=== PATIENT | male | born 1960 | race Caucasian/White ===

== ENCOUNTER 2018-07-09 11:17 | Inpatient (IN) | payer OTHER ==
--- OUTSIDE RECORDS SUMMARY | 2018-07-09 11:19 | XMS REPORT | Clinical Summary ---
:1960 Author Organization [facility] Address [address] [address] Care Team Providers Name Role Phone Huey Kendall Katia Primary Care Provider Allergies Active Allergy Reactions Severity Noted Date Comments Codeine Nausea And Vomiting High 06/13/2016 Medications Medication Sig Dispensed Refills Start Date End Date Status LIPASE/PROTEASE/AMYLA Take by mouth 4 0 Active SE (CREON ORAL) (four) times daily after meals and nightly. [id number] Take 2 capsules 30 capsule 1 06/20/2016 Active se 5,000-17,000 (10,000 units of -27,000 unit E.C. cap lipase total) by mouth 3 (three) times daily with meals. fluticasone-salmetero Inhale 1 puff by 1 Inhaler 0 06/20/2016 Active l (ADVAIR) 250-50 mouth via inhaler mcg/dose diskus every 12 (twelve) inhaler hours. Active Problems Problem Noted Date Chronic pancreatitis 06/18/2016 Alcoholism 06/18/2016 Anemia 06/18/2016 Hyponatremia 06/18/2016 Cervical stenosis of spinal canal 06/13/2016 Social History Tobacco Use Types Packs/Day Years Used Date Current Every Day Smoker 1 30 Tobacco Cessation: Ready to Quit: No Alcohol Use Drinks/Week oz/Week Comments Yes Sex Assigned at Date Recorded Not on file Job Start Date Occupation Industry Not on file Not on file Not on file Travel History Travel Start Travel End No recent travel history available. Last Filed Vital Signs Not on file Plan of Treatment Not on file Implants Implanted Type Area Instant Printer Operator Device Shelf Model / Identifier Expiration Serial / Date Lot Tiss Live Kt Lyo Thrombin 8ml 2993 - [id number] Cement/Fi N/A: Spine J &J: ETHICON 11/06/2017 [id number] / Implanted: Qty: 2 on 06/14/2016 by Chilo Diaz MD ller/Adhe Cervical / sive [id number] Set Scr M6 [id number] - [id number] Spine N/A: Spine MEDTRONIC:SPINA [id number] / Implanted: Qty: 6 on 06/14/2016 by Chilo Diaz MD Cervical L BIOLOGICS / Scr Vertex 14mm [id number] - [id number] Spine N/A: Spine MEDTRONIC:SPINA [id number] / Implanted: Qty: 4 on 06/14/2016 by Chilo Diaz MD Cervical L BIOLOGICS / Scr Multiaxial 3.5x16mm [id number] - [id number] Spine N/A: Spine MEDTRONIC: SPINA [id number] / Implanted: Qty: 2 on 06/14/2016 by Chilo Diaz MD Cervical L BIOLOGICS / Alonzo Precut 3.5x40mm [id number] - [id number] Spine N/A: Spine MEDTRONIC:SPINA [id number] / Implanted: Qty: 2 on 06/14/2016 by Chilo Diaz MD Cervical L BIOLOGICS / Orthoblend Small N/A: Spine MEDTRONIC 02/21/2018 [id number] / Implanted: Qty: 1 on 06/14/2016 by Chilo Diaz MD Cervical [id number] / Results Not on fileafter 07/08/2017 Insurance Payer Benefit Plan / Group Subscriber ID Type Phone Address [place] xxxxxxxxxxx PPO ([place]) [place] [address] Advance Directives For more information, please contact:[address] [phone] Code Status Date Activated Date Inactivated Comments Full Code 06/13/2016 11:47 PM 06/20/2016 8:18 PM This code status was determined by: Patient
[2018-07-09] MEDS ORDERED: THIAMINE 200 MG/2 ML INJ ONE (12:16)
[2018-07-09] MEDS ORDERED: NA CHLORIDE 0.9% 1,000 ML ONE (12:16)
--- NOTE | 2018-07-09 12:30 | RAD REPORT ---
EXAM DESCRIPTION: CT - Head Brain Wo Cont - 07/09/2018 12:19 pm CLINICAL HISTORY: Acute onset bilateral leg weakness COMPARISON: June 2016 TECHNIQUE: Axial 5 mm thick images of the head were obtained without IV contrast. All CT scans are performed using dose optimization technique as appropriate and may include automated exposure control or mA/KV adjustment according to patient size. FINDINGS: No intracranial hemorrhage, mass, edema or shift of mid-line structures. No acute cortical based infarction. No cortical edema or sulcal effacement. Ventricles are prominent but similar to th e prior study. No abnormal extra-axial fluid collections. No transependymal migration of CSF. Mastoid air cells and visualized portions of the paranasal sinuses are clear. No acute bony findings. IMPRESSION: Negative non-contrast CT head examination for acute finding. No identifiable change from prior imaging.
--- NOTE | 2018-07-09 12:37 | RAD REPORT ---
EXAM DESCRIPTION: RAD - Chest Single View - 07/09/2018 12:06 pm CLINICAL HISTORY: Weakness, slurred speech, COPD COMPARISON: June 2016 TECHNIQUE: AP portable chest image was obtained 1158 hour . FINDINGS: Patient has baseline fibrotic an obstructive lung disease. Costophrenic angle blunting is present and stable. No peripheral infiltrates seen. There is masslike density superimposed on the rig ht hilum new from the prior examination. Finding is concerning for central lung mass or mediastinal m ass. Follow-up CT chest imaging with contrast is recommended. No failure or volume overload suspected. Heart and vasculature are normal. No measurable pleural effu mio and no pneumothorax. No acute bony abnormality seen. No acute aortic findings suspected. IMPRESSION: Suspected right hilar or central lung mass new from prior imaging. Follow-up CT chest im aging with contrast recommended. Baseline COPD pattern with no pulmonary edema or peripheral infiltrate.
[2018-07-09 13:05] LABS: Blood Gas Oxyhemoglobin 91.8 % (94-97); Blood O2 Saturation 95.5 % (92-98.5)
--- NOTE | 2018-07-09 13:13 | RAD REPORT ---
EXAM DESCRIPTION: MRI - Brain Wo Cont - 07/09/2018 12:33 pm CLINICAL HISTORY: Weakness, altered mental status, slurred speech COMPARISON: CT head same date TECHNIQUE: Sagittal T1-weighted images were obtained along with axial PD, heavily T2-weighted and T2 -FLAIR images. Axial DWI and ADC mapping sequences were also obtained along with coronal heavily T2-w eighted images. FINDINGS: No intracranial hemorrhage, mass or acute infarction. There is no edema or shift of midlin e structures. No extra-axial fluid collections. Kaufman-matter/white matter junction is preserved. Signa l voids are seen as a normal finding in the major intracranial vessels. No significant atrophy. The patient has a few scattered areas of T2/IR signal abnormality in the whit e matter of each cerebral hemisphere. This is most typically associated with chronic ischemic change. Minimal hypointense signal seen on diffusion-weighted imaging and heavily T2 weighted imaging may be from iron deposition or hemosiderin. No acute intracranial process seen. Mastoid air cells and paranasal sinuses are clear. IMPRESSION: No acute infarction. No hemorrhage, mass or other acute intracranial finding. A few scattered areas of abnormal T2 signal are present most commonly due to chronic ischemic change.
--- NOTE | 2018-07-09 13:18 | EDPHYS ---
Physician Documentation [facility] Name: Anuj Madrigal Jr Age: 58 yrs Sex: Male : 1960 Arrival Date: 07/09/2018 Time: 11:21 Bed 5 Private MD: Luda Kendall H ED Physician Tyree Kiran HPI: 07/09 11:49 This 58 yrs old Male presents to ER via Wheelchair with complaints of Trouble enrique Walking. 11:49 The patient presents to the emergency department with weakness of the entire body, enrique generalized weakness. Onset: The symptoms/episode began/occurred 2 day(s) ago. Context: occurred at home. Associated signs and symptoms: Pertinent positives: weakness. Severity of symptoms: At their worst the symptoms were mild moderate in the emergency department the symptoms are unchanged. Patient's baseline: Neuro: alert and fully oriented. The patient has not experienced similar symptoms in the past. Historical: - Allergies: 11:28 Codeine; sv - PMHx: 11:28 Back pain; COPD; Pancreatitis; sv - PSHx: 11:28 Bowel resection; neck; sv - Immunization history:: Flu vaccine is not up to date. - Social history:: Smoking status: Patient uses tobacco products, smokes 1.5 packs per day, Patient uses alcohol, on a daily basis. - Ebola Screening: : No symptoms or risks identified at this time. - Family history:: not pertinent. ROS: 11:49 Constitutional: Negative for fever, chills, and weight loss, Eyes: Negative for injury, enrique pain, redness, and discharge, ENT: Negative for injury, pain, and discharge, Neck: Negative for injury, pain, and swelling, Cardiovascular: Negative for chest pain, palpitations, and edema, Abdomen/GI: Negative for abdominal pain, nausea, vomiting, diarrhea, and constipation, Back: Negative for injury and pain, : Negative for injury, bleeding, discharge, and swelling, MS/Extremity: Negative for injury and deformity, Skin: Negative for injury, rash, and discoloration, Psych: Negative for depression, anxiety, suicide ideation, homicidal ideation, and hallucinations, Allergy/Immunology: Negative for hives, rash, and allergies, Endocrine: Negative for neck swelling, polydipsia, polyuria, polyphagia, and marked weight changes, Hematologic/Lymphatic: Negative for swollen nodes, abnormal bleeding, and unusual bruising. 11:49 Respiratory: Positive for cough. 11:49 Neuro: Positive for dizziness, syncope, weakness. Exam: 11:49 Constitutional: This is a well developed, well nourished patient who is awake, alert, enrique and in no acute distress. Head/Face: Normocephalic, atraumatic. Eyes: Pupils equal round and reactive to light, extra-ocular motions intact. Lids and lashes normal. Conjunctiva and sclera are non-icteric and not injected. Cornea within normal limits. Periorbital areas with no swelling, redness, or edema. ENT: Nares patent. No nasal discharge, no septal abnormalities noted. Tympanic membranes are normal and external auditory canals are clear. Oropharynx with no redness, swelling, or masses, exudates, or evidence of obstruction, uvula midline. Mucous membranes moist. Neck: Trachea midline, no thyromegaly or masses palpated, and no cervical lymphadenopathy. Supple, full range of motion without nuchal rigidity, or vertebral point tenderness. No Meningismus. Chest/axilla: Normal chest wall appearance and motion. Nontender with no deformity. No lesions are appreciated. Cardiovascular: Regular rate and rhythm with a normal S1 and S2. No gallops, murmurs, or rubs. Normal PMI, no JVD. No pulse deficits. Respiratory: Lungs have equal breath sounds bilaterally, clear to auscultation and percussion. No rales, rhonchi or wheezes noted. No increased work of breathing, no retractions or nasal flaring. Abdomen/GI: Soft, non-tender, with normal bowel sounds. No distension or tympany. No guarding or rebound. No evidence of tenderness throughout. Back: No spinal tenderness. No costovertebral tenderness. Full range of motion. Male : Normal genitalia with no discharge or lesions. Skin: Warm, dry with normal turgor. Normal color with no rashes, no lesions, and no evidence of cellulitis. MS/ Extremity: Pulses equal, no cyanosis. Neurovascular intact. Full, normal range of motion. Neuro: Awake and alert, GCS 15, oriented to person, place, time, and situation. Cranial nerves II-XII grossly intact. Motor strength 5/5 in all extremities. Sensory grossly intact. Cerebellar exam normal. Normal gait. Psych: Awake, alert, with orientation to person, place and time. Behavior, mood, and affect are within normal limits. Vital Signs: 11:28 BP 151 / 86; Pulse 56; Resp 16; Temp 97; Pulse Ox 99% ; Weight 58.97 kg; Height 5 ft. 9 sv in. (175.26 cm); Pain 0/10; 13:56 BP 156 / 84; Pulse 53; Resp 18; Pulse Ox 100% ; tl3 16:08 BP 175 / 87; Pulse 46; Resp 15; Temp 98.0(TE); Pulse Ox 100% on R/A; Pain 0/10; ss 11:28 Body Mass Index 19.20 (58.97 kg, 175.26 cm) sv NIH Stroke Scale Scores: 13:57 NIHSS Score: 0 tl3 MDM: 11:52 Data reviewed: vital signs, nurses notes, lab test result(s), EKG, radiologic studies, [facility] CT scan, plain films. 11:53 Patient medically screened. [facility] 07/09 11:49 Order name: Basic Metabolic Panel; Complete Time: 14:27 [facility] 07/09 11:49 Order name: CBC with Diff 07/09 11:49 Order name: LFT's; Complete Time: 14:27 [facility] 07/09 11:49 Order name: Magnesium; Complete Time: 14:27 [facility] 07/09 11:49 Order name: NT PRO-BNP; Complete Time: 14:27 [facility] 07/09 11:49 Order name: PT-INR; Complete Time: 14:01 [facility] 07/09 11:49 Order name: Troponin (emerg Dept Use Only); Complete Time: 14:27 [facility] 07/09 11:49 Order name: Blood Culture Adult (2) [facility] 07/09 11:49 Order name: Procalcitonin; Complete Time: 14:27 [facility] 07/09 11:49 Order name: Lipase; Complete Time: 14:27 [facility] 07/09 11:49 Order name: Urine Culture [facility] 07/09 11:49 Order name: Lactate; Complete Time: 13:13 [facility] 07/09 11:52 Order name: Glucose, Ancillary Testing; Complete Time: 12:29 [facility] 07/09 11:52 Order name: ETOH Level; Complete Time: 14:21 [facility] 07/09 11:52 Order name: UDS [facility] 07/09 11:53 Order name: ABG [facility] 07/09 14:22 Order name: Urine Osmolality [facility] 07/09 14:22 Order name: Urine Sodium Random [facility] 07/09 14:22 Order name: Osmolality, Serum [facility] 07/09 14:28 Order name: TSH [facility] 07/09 14:28 Order name: Uric Acid [facility] 07/09 14:35 Order name: Cortisol 07/09 14:35 Order name: Cortisol [facility] 07/09 14:35 Order name: Urine Potassium Random [facility] 07/09 14:44 Order name: Manual Differential [facility] 07/09 15:59 Order name: UR SODIUM [facility] 07/09 16:00 Order name: UR POTASSIUM [facility] 07/09 16:05 Order name: Osmolality, Urine [facility] 07/09 16:32 Order name: Uric Acid [facility] 07/09 16:33 Order name: Thyroid Stimulating Hormone [facility] 07/09 11:49 Order name: XRAY Chest (1 view); Complete Time: 13:13 [facility] 07/09 11:49 Order name: EKG; Complete Time: 11:49 [facility] 07/09 11:49 Order name: Cardiac monitoring; Complete Time: 14:15 [facility] 07/09 11:49 Order name: EKG - Nurse/Tech; Complete Time: 14:15 [facility] 07/09 11:49 Order name: IV Saline Lock; Complete Time: 12:03 [facility] 07/09 11:49 Order name: Labs collected and sent; Complete Time: 12:03 [facility] 07/09 11:49 Order name: O2 Per Protocol; Complete Time: 13:38 [facility] 07/09 11:49 Order name: O2 Sat Monitoring; Complete Time: 13:37 [facility] 07/09 11:49 Order name: Urine Dipstick-Ancillary (obtain specimen); Complete Time: 15:57 [facility] 07/09 11:49 Order name: CT Head Brain wo Cont; Complete Time: 13:13 [facility] 07/09 11:53 Order name: Brain Wo Cont; Complete Time: 13:15 [facility] 07/09 12:11 Order name: Labs - recollect needed; Complete Time: 13:34 07/09 12:29 Order name: CT Chest W/ Con [facility] 07/09 13:21 Order name: CONS Physician Consult [facility] 07/09 14:22 Order name: Seizure Precautions; Complete Time: 14:38 [facility] 07/09 14:46 Order name: CT EDMS Administered Medications: 13:35 Drug: NS 0.9% 500 ml Volume: 500 ml; Route: IV; Rate: 1 bolus; Site: right forearm; tl3 Delivery: Primary tubing; 14:15 Follow up: IV Status: Completed infusion; IV Intake: 500ml ss 13:46 Drug: Thiamine 100 mg Route: IV; Rate: bolus; Site: right forearm; Delivery: Primary tl3 tubing; 14:19 Follow up: IV Status: Completed infusion; IV Intake: 10ml tl3 13:50 Drug: Aspirin 162 mg Route: PO; tl3 14:19 Follow up: Response: No adverse reaction tl3 14:15 Drug: NS 0.9% 1000 ml Route: IV; Rate: 125 ml/hr; Site: right antecubital; ss 14:16 Follow up: IV Status: Infusion continued upon admission ss 15:32 Drug: Magnesium Sulfate 2 grams Route: IVPB; Infused Over: 2 hrs; Site: right forearm; ss 15:41 Follow up: IV Status: Infusion continued upon admission ss Point of Care Testing: Blood Glucose: 11:45 Blood Glucose: 79 mg/dL; sv Ranges: Critical Glucose Levels:Adult <50 mg/dl or >400 mg/dl <40 mg/dl or >180 mg/dl Disposition: 07/09/18 13:17 Hospitalization ordered by Miles Coreas for Inpatient Admission. Preliminary diagnosis are Weakness, Chronic obstructive pulmonary disease with (acute) exacerbation - lung mass, Hypo-osmolality and hyponatremia, Alcohol abuse, Hypomagnesemia. - Bed requested for Intensive Care Unit. - Status is Inpatient Admission. ss - Condition is Fair. - Problem is new. - Symptoms have improved. UTI on Admission? No NIH Stroke Scale - NIH Stroke Score Date: 07/09/2018 Time: 13:57 Total Score = 0 1a. Level of Consciousness (LOC) - 0(Alert) 1b. Level of Consciousness (LOC) (Year \T\ Age) - 0(Both) 1c. LOC Commands (Open \T\ Closes Eyes/Orthopedic Designer) - 0(Both) 2. Best Gaze (Lateral Gaze Paresis) - 0(Normal) 3. Visual Field Loss - 0(No visual loss) 4. Facial Palsy - 0(Normal) 5a. Left Arm: Motor (10-second hold) - 0(No drift) 5b. Right Arm: Motor (10-second hold) - 0(No drift) 6a. Left Leg: Motor (5-second hold - always test supine) - 0(No drift) 6b. Right Leg: Motor (5-second hold - always test supine) - 0(No drift) 7. Limb Ataxia (finger/nose \T\ heel/galicia - test with eyes open) - 0(Absent) 8. Sensory Loss (pinprick arms/legs/face) - 0(Normal) 9. Best Language: Aphasia (description/naming/reading) - 0(No aphasia) 10. Dysarthria (speech clarity - read or repeat words) - 0(Normal) 11. Extinction and Inattention (visual/tactile/auditory/spatial/personal) - 0(No abnormality) Initials: tl3 Signatures: Dispatcher [employer] EDTX Shira Freitas RN RN sv Anderson, Corey, MD MD cha Smirch, Shelby, RN RN ss Fitzgerald, Diane, RN RN df Lowrey, Tammy, RN RN tl3 Elinor Vu Corrections: (The following items were deleted from the chart) 11:53 11:50 MR STROKE PROTOCOL+MRI.RAD.BRZ ordered. [facility] EDTX 14:23 13:17 Hospitalization Ordered by Miles Coreas MD for Observation. Preliminary enrique diagnosis is Weakness; Chronic obstructive pulmonary disease with (acute) exacerbation - lung mass. Bed requested for Telemetry/MedSurg (observation). Status is Observation. Condition is Fair. Problem is new. Symptoms have improved. UTI on Admission? No. enrique 14:29 14:23 07/09/2018 13:17 Hospitalization Ordered by Miles Coreas MD for Inpatient enrique Admission. Preliminary diagnosis is Weakness; Chronic obstructive pulmonary disease with (acute) exacerbation - lung mass; Hypo-osmolality and hyponatremia; Alcohol abuse. Bed requested for Intensive Care Unit. Status is Inpatient Admission. Condition is Fair. Problem is new. Symptoms have improved. UTI on Admission? No. enrique 15:01 14:29 07/09/2018 13:17 Hospitalization Ordered by Miles Coreas MD for Inpatient df Admission. Preliminary diagnosis is Weakness; Chronic obstructive pulmonary disease with (acute) exacerbation - lung mass; Hypo-osmolality and hyponatremia; Alcohol abuse; Hypomagnesemia. Bed requested for Intensive Care Unit. Status is Inpatient Admission. Condition is Fair. Problem is new. Symptoms have improved. UTI on Admission? No. enrique 16:35 15:01 07/09/2018 13:17 Hospitalization Ordered by Miles Coreas MD for Inpatient Admission. Preliminary diagnosis is Weakness; Chronic obstructive pulmonary disease with (acute) exacerbation - lung mass; Hypo-osmolality and hyponatremia; Alcohol abuse; Hypomagnesemia. Bed requested for Intensive Care Unit. Status is Inpatient Admission. Condition is Fair. Problem is new. Symptoms have improved. UTI on Admission? No. df
--- NOTE | 2018-07-09 13:18 | ER ---
Nurse's Notes [facility] Name: Anuj Madrigal Jr Age: 58 yrs Sex: Male : 1960 Arrival Date: 07/09/2018 Time: 11:21 Bed 5 Private MD: Luda Kendall H Diagnosis: Weakness;Chronic obstructive pulmonary disease with (acute) exacerbation-lung mass;Hypo-osmolality and hyponatremia;Alcohol abuse;Hypomagnesemia Presentation: 07/09 11:25 Presenting complaint: Patient states: generalized weakness, pt reports he has always sv had trouble with his right leg after having neck surgery 2 years ago but recently has been weak on both legs. c/o lethargy. Spouse states that he started having slurred speech 3 days ago. Pt reports drinking beer daily for years and had his last drink . Transition of care: patient was not received from another setting of care. No acute neurological deficit is noted. Onset of symptoms was July 06, 2018. Care prior to arrival: None. 11:25 Method Of Arrival: Wheelchair sv 11:25 Acuity: QUENTIN 3 sv 14:00 Pre-hospital glucose is not applicable to this patient. Risk Assessment: Do you want to ss hurt yourself or someone else? Patient reports no desire to harm self or others. Initial Sepsis Screen: Does the patient meet any 2 criteria? No. Patient's initial sepsis screen is negative. Does the patient have a suspected source of infection? No. Patient's initial sepsis screen is negative. Triage Assessment: 11:25 General: Appears in no apparent distress. uncomfortable, ill, unkempt, Behavior is sv calm, cooperative. Neuro: Level of Consciousness is awake, alert, obeys commands, Oriented to person, place, time, situation, Reports weakness. Respiratory: Respiratory effort is even, unlabored, Respiratory pattern is regular, symmetrical. 12:01 The onset of the patients symptoms was more than six hours ago. General: Appears ill, ls4 unkempt. 12:01 The onset of the patients symptoms was at an unknown time. General: Behavior is calm, ls4 cooperative, quiet. Pain: Denies pain. Neuro: Reports weakness pt states he has been generally week, and in the last 3 days it has gotten worse. . Respiratory: Airway is patent Respiratory effort is unlabored, Breath sounds are diminished bilaterally. GI: No signs and/or symptoms were reported involving the gastrointestinal system. : No signs and/or symptoms were reported regarding the genitourinary system. Musculoskeletal: Reports weakness in generalized. Stroke Activation: Symptom onset > 6 hours Physician: Stroke Attending; Name: ; Notified At: ; Arrived At: Physician: Chief Stroke Resident; Name: ; Notified At: ; Arrived At: Physician: Stroke Resident; Name: ; Notified At: ; Arrived At: Physician: ED Attending; Name: ; Notified At: ; Arrived At: Physician: ED Resident; Name: ; Notified At: ; Arrived At: Historical: - Allergies: 11:28 Codeine; sv - PMHx: 11:28 Back pain; COPD; Pancreatitis; sv - PSHx: 11:28 Bowel resection; neck; sv - Immunization history:: Flu vaccine is not up to date. - Social history:: Smoking status: Patient uses tobacco products, smokes 1.5 packs per day, Patient uses alcohol, on a daily basis. - Ebola Screening: : No symptoms or risks identified at this time. - Family history:: not pertinent. Screenin:47 Abuse screen: Denies threats or abuse. Denies injuries from another. Nutritional ls4 screening: Had unintentional weight loss of 10 pounds or more. Tuberculosis screening: No symptoms or risk factors identified. Fall Risk No fall in past 12 months (0 pts). IV access (20 points). Gait- Weak (10 pts.). Mental Status-. Assessment: 13:10 General: Appears comfortable, slender, well groomed, well developed, well nourished, tl3 Behavior is cooperative, appropriate for age. Neuro: Level of Consciousness is awake, alert, obeys commands, Oriented to person, place, time, situation, Appropriate for age Speech is normal, Facial symmetry appears normal. Cardiovascular: Patient's skin is warm and dry. Respiratory: Airway is patent Respiratory effort is even, unlabored, Respiratory pattern is regular, symmetrical, Breath sounds are coarse bilaterally. Breath sounds are diminished in left upper lobe, right middle lobe, left lower lobe, right lower lobe, left posterior upper lobe and right posterior upper lobe. : No signs and/or symptoms were reported regarding the genitourinary system. 13:57 Patient has been NPO before screening. The patient is alert, and able to follow tl3 commands. The patient does not exhibit slurred or garbled speech. The patient is not exhibiting difficulty speaking. The patient does not exhibit difficulty understanding words. The patient is able to swallow own secretions with no drooling or need for suction. Patient tolerated one teaspoon of water. No drooling, immediate coughing, gurgling, or clearing of the throat was noted. The patient tolerated 90mL of water. No drooling, immediate coughing, gurgling, or clearing of the throat was noted. The patient passed the bedside swallow screening. Oral medications may be given as ordered. Contact Physician for further diet orders. Provider notified of bedside swallow screening results: Tyree Kiran MD. 14:00 T-PA (Activase) Screening: Contraindications: Patient reports onset of signs and ss symptoms of stroke greater than 6 hours ago:. 15:00 Reassessment: Patient appears in no apparent distress at this time. No changes from ss previously documented assessment. Patient and/or family updated on plan of care and expected duration. Pain level reassessed. Pt still reports he cannot urinate. Will straight cath per Dr. Kiran. 16:00 Reassessment: Patient appears in no apparent distress at this time. Patient and/or ss family updated on plan of care and expected duration. Pain level reassessed. Patient is alert, oriented x 3, equal unlabored respirations, skin warm/dry/pink. Patient denies pain at this time. Vital Signs: 11:28 BP 151 / 86; Pulse 56; Resp 16; Temp 97; Pulse Ox 99% ; Weight 58.97 kg; Height 5 ft. 9 sv in. (175.26 cm); Pain 0/10; 13:56 BP 156 / 84; Pulse 53; Resp 18; Pulse Ox 100% ; tl3 16:08 BP 175 / 87; Pulse 46; Resp 15; Temp 98.0(TE); Pulse Ox 100% on R/A; Pain 0/10; ss 11:28 Body Mass Index 19.20 (58.97 kg, 175.26 cm) sv NIH Stroke Scale Scores: 13:57 NIHSS Score: 0 tl3 ED Course: 11:21 Patient arrived in ED. mr 11:21 Luda Kendall DO is Private Physician. mr 11:28 Triage completed. sv 11:29 Arm band placed on. sv 11:41 Tyree Kiran MD is Attending Physician. enrique 11:45 Initial lab(s) drawn, by me, sent to lab. First set of blood cultures drawn by me. sv Inserted saline lock: 22 gauge in right forearm, using aseptic technique. ,using aseptic technique. diffusics Blood collected. Flushed right forearm with 5 ml normal saline. 12:00 XRAY Chest (1 view) In Process Unspecified. EDMS 12:06 EKG done, by predictive maintenance technician. dt2 12:[address] via stretcher. sv 12:19 CT completed. Patient tolerated procedure well. Patient moved to MRI via stretcher. mw3 12:19 CT Head Brain wo Cont In Process Unspecified. EDMS 12:33 Brain Wo Cont In Process Unspecified. EDMS 12:46 Reta Angela, AMNA is Primary Nurse. ls4 12:47 Patient has correct armband on for positive identification. Fall risk band placed. ls4 Placed in gown. Bed in low position. Side rails up X2. clinical research monitor on. Pulse ox on. NIBP on. Warm blanket given. 12:47 No provider procedures requiring assistance completed. ls4 13:16 Miles Coreas MD is Hospitalizing Provider. enrique 13:33 Radiology exam delayed due to lab results not completed at this time. (BUN/Creatinine). sj 14:[address] via wheelchair. tl3 16:35 Patient admitted, IV remains in place. ss Administered Medications: 13:35 Drug: NS 0.9% 500 ml Volume: 500 ml; Route: IV; Rate: 1 bolus; Site: right forearm; tl3 Delivery: Primary tubing; 14:15 Follow up: IV Status: Completed infusion; IV Intake: 500ml ss 13:46 Drug: Thiamine 100 mg Route: IV; Rate: bolus; Site: right forearm; Delivery: Primary tl3 tubing; 14:19 Follow up: IV Status: Completed infusion; IV Intake: 10ml tl3 13:50 Drug: Aspirin 162 mg Route: PO; tl3 14:19 Follow up: Response: No adverse reaction tl3 14:15 Drug: NS 0.9% 1000 ml Route: IV; Rate: 125 ml/hr; Site: right antecubital; ss 14:16 Follow up: IV Status: Infusion continued upon admission ss 15:32 Drug: Magnesium Sulfate 2 grams Route: IVPB; Infused Over: 2 hrs; Site: right forearm; ss 15:41 Follow up: IV Status: Infusion continued upon admission Point of Care Testing: Blood Glucose: 11:45 Blood Glucose: 79 mg/dL; sv Ranges: Intake: 14:15 IV: 500ml; Total: 500ml. ss 14:19 IV: 10ml; Total: 510ml. tl3 Outcome: 13:17 Decision to Hospitalize by Provider. enrique 16:33 Admitted to ICU accompanied by nurse, family with patient, via stretcher, room 3, on monitor, with chart, Report called to AMNA Garcia 16:33 Condition: good 16:33 Instructed on the need for admit. 16:35 Patient left the ED. NIH Stroke Scale - NIH Stroke Score Date: 07/09/2018 Time: 13:57 Total Score = 0 1a. Level of Consciousness (LOC) - 0(Alert) 1b. Level of Consciousness (LOC) (Year \T\ Age) - 0(Both) 1c. LOC Commands (Open \T\ Closes Eyes/Truck Assembler) - 0(Both) 2. Best Gaze (Lateral Gaze Paresis) - 0(Normal) 3. Visual Field Loss - 0(No visual loss) 4. Facial Palsy - 0(Normal) 5a. Left Arm: Motor (10-second hold) - 0(No drift) 5b. Right Arm: Motor (10-second hold) - 0(No drift) 6a. Left Leg: Motor (5-second hold - always test supine) - 0(No drift) 6b. Right Leg: Motor (5-second hold - always test supine) - 0(No drift) 7. Limb Ataxia (finger/nose \T\ heel/galicia - test with eyes open) - 0(Absent) 8. Sensory Loss (pinprick arms/legs/face) - 0(Normal) 9. Best Language: Aphasia (description/naming/reading) - 0(No aphasia) 10. Dysarthria (speech clarity - read or repeat words) - 0(Normal) 11. Extinction and Inattention (visual/tactile/auditory/spatial/personal) - 0(No abnormality) Initials: tl3 Signatures: Dispatcher [employer] Shira Cordova RN RN sv Anderson, Corey, MD MD cha Rivera, Terese Delgado, AmeliaSavanah Olivares, AMNA RN ss Maggi Obrien RN RN tl3 Paola Belle dt2 Sandra Tsai mw3 Reta Angela RN RN ls4 Corrections: (The following items were deleted from the chart) 14:18 13:10 Respiratory: Airway is patent Respiratory effort is even, unlabored, tl3 Respiratory pattern is regular, symmetrical, tl3
[2018-07-09 13:51] LABS: Absolute Lymphocytes (CBC) 1.6 K/uL (0.7-4.9); Absolute Monocytes 0.4 K/uL (0.1-1.3); Absolute Neutrophil 1.3 K/uL (1.8-8.0); Basophils % 0.9 % (0-1.3); Eosinophils % 5.8 % (0-4.4); Hematocrit 44.6 % (39.6-49.0); Lymphocytes % 45.2 % (15.3-44.8); MCH 32.3 pg (27.0-35.0); MCV 91.6 fL (80-100); MPV 10.1 fL (7.6-11.3); Monocytes % 10.8 % (3.3-12.3); RBC Red Blood Cell Count 4.87 M/uL (4.33-5.43)
[2018-07-09 13:53] LABS: Protime INR 1.02
[2018-07-09] MEDS ORDERED: ASPIRIN 81 MG CHEWABLE TABLET ONE (13:55)
[2018-07-09 14:17] LABS: ALT/SGPT 33 U/L (12-78); AST/SGOT 46 U/L (15-37); Albumin 3.8 g/dL (3.4-5.0); Alkaline Phosphatase 57 U/L (45-117); BUN Blood Urea Nitrogen 8 mg/dL (7-18); Bicarbonate 22 mmol/L (21-32); Bilirubin Direct 0.2 mg/dL (0-0.2); Bilirubin Total 0.5 mg/dL (0.2-1.0); Glucose Level 76 mg/dL (74-106); Lipase 179 U/L (73-393); Magnesium 1.5 mg/dL (1.8-2.4); NT PRO-BNP 368 pg/mL (<125); Potassium 4.1 mmol/L (3.5-5.1); Protein, Total 7.1 g/dL (6.4-8.2); Troponin (Emerg Dept Use Only) < 0.02 ng/mL (0.0-0.045)
[2018-07-09 14:22] LABS: Sodium Level 115 mmol/L (136-145)
[2018-07-09 14:44] LABS: Blood Morphology Comment NOTED (NOT SEEN); Burr Cells 1+; Platelet Estimate ADEQ
--- NOTE | 2018-07-09 14:46 | RAD REPORT ---
EXAM DESCRIPTION: CT - Thorax W/ Con - 07/09/2018 2:34 pm CLINICAL HISTORY: Chest pain COMPARISON: July 09, 2018 chest x-ray TECHNIQUE: Computed axial tomography of the chest was obtained. 100 cc Isovue 300 was administered i ntravenously. All CT scans are performed using dose optimization technique as appropriate and may include automated exposure control or mA/KV adjustment according to patient size. FINDINGS: A 4.3 centimeter right hilar mass is present. The mass encases of right lower lobe pulmona ry artery. Bronchus intermedius is narrowed. 1 centimeter aorticopulmonary window lymph node is seen. Left lung is clear A pleural effusion is not present. A pericardial effusion is not noted IMPRESSION: 4.3 centimeter right hilar mass likely representing neoplasm. Bronchoscopy is recommende d
[2018-07-09] MEDS ORDERED: NA CHLORIDE 0.9% 1,000 ML IV SCH (15:00)
--- NOTE | 2018-07-09 15:15 | EKG ---
Test Date: 2018-07-09 Test Time: 12:01:58 Homebound Teacher: ADA MEASUREMENT RESULTS: Intervals: Rate: 49 WV: 182 QRSD: 98 QT: 494 QTc: 446 [place]: P: 71 WV: 182 QRS: 80 T: 77 INTERPRETIVE STATEMENTS: Marked sinus bradycardia Possible Left atrial enlargement Nonspecific ST abnormality Abnormal ECG Compared to ECG 06/11/2016 06:42:51 ST (T wave) deviation now present Electronically Signed On 07-09-18 15:14:59 CDT by Jack Rosario
[2018-07-09] MEDS ORDERED: Magnesium Sulfate 2gm IVPB 2 G/50 ML BAG IV ONE (15:17)
[2018-07-09 16:15] LABS: Barbiturates NEGATIVE (NEGATIVE); Benzodiazepines NEGATIVE (NEGATIVE); Cocaine NEGATIVE (NEGATIVE); METHAMPHETAM NEGATIVE (NEGATIVE); Methadone NEGATIVE (NEGATIVE); Opiates NEGATIVE (NEGATIVE); Phencyclidine NEGATIVE (NEGATIVE); THC Cannibis POSITIVE (NEGATIVE)
[2018-07-09 16:30] LABS: Thyroid Stimulating Hormone 2.53 uIU/mL (0.360-3.740)
[2018-07-09 16:32] LABS: Uric Acid 1.8 mg/dL (3.5-7.2)
[2018-07-09] MEDS ORDERED: INFLUENZA VACCINE (for 3y+) 0.5 ML DOSE IMVAC ONE (18:00)
--- NOTE | 2018-07-09 18:15 | P.HP ---
Certification for Inpatient Patient admitted to: Inpatient With expected LOS: >2 Midnights Practitioner: I am a practitioner with admitting privileges, knowledge of patient current condition, hospital course, and medical plan of care. Services: Services provided to patient in accordance with Admission requirements found in Title 42 Section 412.3 of the Code of Federal Regulations Patient History Date of Service: 07/09/18 Reason for admission: Weakness History of Present Illness: This is a 58-year-old male with history of COPD, pancreatitis, taking Lantus, history of SBO requiring colon resection/colostomy 20 remained, history of laminectomy/neck surgery 2 years ago and is admitted for bilateral leg weakness. Per patient ever since laminectomy surgery, he has had trouble walking for the past 3-4 days it has been progressively worsening to where he could not even walk properly And had a couple falls. He states that he does drink 3-4 beers a day, has been drinking for a very long time. Last drink was on . He is a current smoker, pack per day for the past 40 years. Mother and father with history of lung cancer. He also states he knew smokes marijuana, last usage was 5 days ago. He denies any chest pain, shortness of breath, headache, vision changes, speech changes, fevers, chills, facial droop, abdominal pain, nausea or vomiting. He denies any focal weakness. In the ER, he was found to have a sodium of 115. He was started on IV fluids, nephrology was consulted and he was transferred to the ICU further management. At the time of my exam, patient was alert oriented x3 in no acute distress. He was still denying any complaints other than the bilateral leg weakness in the progressively worsening unable to walk. Allergies codeine Adverse Reaction (Verified 06/23/16 14:04) Nausea/Vomiting hydromorphone Adverse Reaction (Verified 06/23/16 14:05) Nausea/Vomiting Home Medications: Ibuprofen 200 mg PO TID PRN 07/09/18 - Past Medical/Surgical History Diabetic: No -: copd -: pancreatitis -: back pain -: bowel resection w/colostomy 2010 -: rt foot fx-1970 -: revision of colostomy 2014 -: Neck surgery-laminectomy 2015 - Family History Mother -: Cancer Brother -: Hypertension, Diabetes Father -: Cancer Notes: father and mother both lung cancer - Social History Smoking Status: Current every day smoker Alcohol use: Yes CD- Drugs: No Caffeine use: Yes Place of Residence: Home Review of Systems General: Weakness, As per HPI Eyes: Unremarkable ENT: Unremarkable Respiratory: Unremarkable Cardiovascular: Unremarkable Gastrointestinal: Unremarkable Genitourinary: Unremarkable Musculoskeletal: Unremarkable Integumentary: Unremarkable Neurological: Weakness, As per HPI Lymphatics: Unremarkable Physical Examination - Vital Signs Temperature: 98.0 F Blood Pressure: 183/94 Pulse: 54 Respirations: 12 Pulse Ox (%): 99 - Physical Exam General: Alert, In no apparent distress, Oriented x3 HEENT: Atraumatic, PERRLA, Mucous membr. moist/pink, EOMI, Sclerae nonicteric Neck: Supple, 2+ carotid pulse no bruit, No LAD, Without JVD or thyroid abnormality Respiratory: Clear to auscultation bilaterally, Normal air movement Cardiovascular: Regular rate/rhythm, Normal S1 S2 Gastrointestinal: Normal bowel sounds, No tenderness Musculoskeletal: No tenderness Integumentary: No rashes Neurological: Normal speech, Normal strength at 5/5 x4 extr, Normal tone, Sensation intact, Normal affect, Other (Did not test gait, as patient felt unbalanced) Assessment and Plan - Plan - Hyponatremia: Patient found to be hypernatremic to 115. Transfer to ICU, correct sodium slowly IV fluids running, nephrology consulted Patient with hyponatremia in the setting of a newly diagnosed hilar mass, and a heavy smoker as. He he will need to be evaluated further for paraneoplastic syndrome/lung cancer. - hypomagnesemia Replace and monitor - bilateral lower extremity weakness This is likely secondary to the electrolyte imbalance. He will need physical therapy prior to discharge. Head CT negative for any acute abnormalities. - newly diagnosed central hilar mass, noted on CT In an patient who is a heavy smoker, worrisome for cancer. Pulmonology consulted for further evaluation. - COPD exacerbation At the time of my exam, patient satting 100% on breathing without any distress on room air. Will continue to monitor Breathing treatments as needed. - tobacco use Counseled on smoking cessation. - alcohol use Patient's alcohol level minimal, last drink about a 5 days ago. Monitor with alcohol withdrawal assessments q.4 hr Ativan p.r.n. Thiamine and folate - history of neck surgery/laminectomy - history of diverticulitis Stable at this time. DVT prophylaxis: Lovenox Diet: Heart healthy Disposition: Continue to monitor in the ICU overnight with sodium correction. - Advance Directives Does patient have a Living Will: No Does patient have a Durable POA for Healthcare: No
[2018-07-09] MEDS: FUROSEMIDE 20 MG TABLET PO SCH (18:45)
[2018-07-09] MEDS: SODIUM CHLORIDE 1 GM TAB PO SCH ×2 (18:45→20:26)
[2018-07-09] MEDS: ENOXAPARIN 40 MG/0.4 ML SQ SCH (18:46)
[2018-07-09 19:04] LABS: BUN Blood Urea Nitrogen 8 mg/dL (7-18); Bicarbonate 18 mmol/L (21-32); Glucose Level 128 mg/dL (74-106); Potassium 4.1 mmol/L (3.5-5.1)
[2018-07-09 19:11] LABS: Sodium Level 114 mmol/L (136-145)
[2018-07-09] MEDS: ALBUTEROL 2.5 MG/3 ML NEB SOL NEB SCH (19:37)
[2018-07-09] MEDS: IPRATROPIUM BROM 0.5MG/2.5ML NEB SCH (19:37)
[2018-07-09] MEDS: LORazepam 2 MG/ML VIAL IV PRN (21:39)
[2018-07-10] MEDS: ALBUTEROL 2.5 MG/3 ML NEB SOL NEB SCH ×2 (01:57→08:05)
[2018-07-10] MEDS: IPRATROPIUM BROM 0.5MG/2.5ML NEB SCH ×2 (01:57→08:05)
[2018-07-10 02:10] LABS: BUN Blood Urea Nitrogen 9 mg/dL (7-18); Bicarbonate 25 mmol/L (21-32); Glucose Level 68 mg/dL (74-106); Magnesium 1.6 mg/dL (1.8-2.4); Potassium 3.5 mmol/L (3.5-5.1); Sodium Level 118 mmol/L (136-145)
[2018-07-10] MEDS ORDERED: Magnesium Sulfate 2gm IVPB 2 G/50 ML BAG IV ONE (03:12)
[2018-07-10] MEDS: KCL 20 MEQ/100 mL IVPB 20 MEQ/100 ML BAG IV SCH ×2 (03:30→05:16)
[2018-07-10 06:08] LABS: Absolute Lymphocytes (CBC) 1.1 K/uL (0.7-4.9); Absolute Monocytes 0.4 K/uL (0.1-1.3); Absolute Neutrophil 1.4 K/uL (1.8-8.0); Basophils % 1.5 % (0-1.3); Eosinophils % 6.1 % (0-4.4); Hematocrit 42.5 % (39.6-49.0); Lymphocytes % 34.2 % (15.3-44.8); MCH 32.8 pg (27.0-35.0); MCV 91.9 fL (80-100); MPV 9.9 fL (7.6-11.3); Monocytes % 14.1 % (3.3-12.3); RBC Red Blood Cell Count 4.62 M/uL (4.33-5.43)
[2018-07-10 06:33] LABS: ALT/SGPT 32 U/L (12-78); AST/SGOT 43 U/L (15-37); Albumin 3.5 g/dL (3.4-5.0); Alkaline Phosphatase 57 U/L (45-117); BUN Blood Urea Nitrogen 8 mg/dL (7-18); Bicarbonate 25 mmol/L (21-32); Bilirubin Total 0.4 mg/dL (0.2-1.0); Glucose Level 72 mg/dL (74-106); Potassium 4.1 mmol/L (3.5-5.1); Protein, Total 6.6 g/dL (6.4-8.2)
[2018-07-10 06:39] LABS: Sodium Level 119 mmol/L (136-145)
--- NOTE | 2018-07-10 08:25 | P.CNS ---
Date of Consult: 07/10/18 Reason for Consult: Lung mass hyponatremia Chief Complaint: Weakness History of Present Illness: Patient is 58 years of age and active smoker admitted with progressive weakness of his legs worse over the past week patient drinks beer on a daily basis prior to that he was mowing the lawn and doing household routine duties was found to have a right lung mass with severe hyponatremia denies any significant weight loss he has had neck surgery about 2 years ago history of COPD still continues to smoke Allergies codeine Adverse Reaction (Verified 06/23/16 14:04) Nausea/Vomiting hydromorphone Adverse Reaction (Verified 06/23/16 14:05) Nausea/Vomiting Home Medications: Ibuprofen 200 mg PO TID PRN 07/09/18 - Past Medical/Surgical History Diabetic: No -: copd -: pancreatitis -: back pain -: bowel resection w/colostomy 2010 -: rt foot fx-1970 -: revision of colostomy 2014 -: Neck surgery-laminectomy 2015 - Family History Mother Medical History: Cancer Brother Medical History: Hypertension, Diabetes Father Medical History: Cancer Notes: father and mother both lung cancer - Social History Smoking Status: Current every day smoker Alcohol use: Yes CD- Drugs: No Caffeine use: Yes Place of Residence: Home Review of Systems General: Weakness Respiratory: Shortness of Breath Musculoskeletal: As per HPI Physical Examination Temp Pulse Resp BP Pulse Ox 98.0 F 56 11 L 136/70 100 07/10/18 04:00 07/10/18 05:00 07/10/18 05:00 07/10/18 05:00 07/10/18 05:00 General: Alert, Oriented x3 HEENT: Atraumatic Neck: Supple Respiratory: Clear to auscultation bilaterally Cardiovascular: No edema, Regular rate/rhythm Gastrointestinal: Normal bowel sounds, Soft and benign Musculoskeletal: No clubbing Integumentary: No rashes, No breakdown Laboratory Data (last 24 hrs) 07/09/18 15:45: Uric Acid 1.8 L 07/09/18 13:20: PT 12.0, INR 1.02 07/09/18 13:20: WBC 3.6 L, Hgb 15.7, Hct 44.6, Plt Count 162 07/09/18 13:20: Sodium 115 L*, Potassium 4.1, BUN 8, Creatinine 0.60, Glucose 76 , Magnesium 1.5 L, Total Bilirubin 0.5, AST 46 H, ALT 33, Alkaline Phosphatase 57, Lipase 179 - Problems (1) Hyponatremia Current Visit: Yes Status: Acute Plan: Patient is 58 years of age with a history of COPD admitted with prior progressive lower extremity weakness worse over the past week is an active smoker has right lung mass MRI of the brain is negative patient is severely hypernatremic urine sodium is elevated uric acid is very low potassium is normal probably underlying SIADH over is a low cortisol level of order an ACTH stimulation test and and Decadron very 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
[2018-07-10] MEDS ORDERED: IPRATROPIUM BROM 0.5MG/2.5ML NEB PRN (08:29)
[2018-07-10] MEDS: ENOXAPARIN 40 MG/0.4 ML SQ SCH (09:24)
[2018-07-10] MEDS: FUROSEMIDE 20 MG TABLET PO SCH (09:24)
[2018-07-10] MEDS: THIAMINE HCL 100 MG TABLET PO SCH (09:24)
[2018-07-10] MEDS: SODIUM CHLORIDE 1 GM TAB PO SCH ×4 (09:24→21:31)
[2018-07-10] MEDS: FOLIC ACID 1 MG TABLET PO SCH (09:24)
[2018-07-10] MEDS: ARFORMOTEROL TARTRATE 15 MCG/2 ML VIAL.NEB NEB SCH ×2 (10:50→20:03)
[2018-07-10 13:13] LABS: BUN Blood Urea Nitrogen 8 mg/dL (7-18); Bicarbonate 22 mmol/L (21-32); Glucose Level 112 mg/dL (74-106); Magnesium 1.8 mg/dL (1.8-2.4); Potassium 3.8 mmol/L (3.5-5.1)
[2018-07-10 13:15] LABS: Sodium Level 119 mmol/L (136-145)
--- NOTE | 2018-07-10 14:18 | P.CNS ---
Date of Consult: 07/10/18 Reason for Consult: hyponatremia Chief Complaint: Weakness Allergies codeine Adverse Reaction (Verified 06/23/16 14:04) Nausea/Vomiting hydromorphone Adverse Reaction (Verified 06/23/16 14:05) Nausea/Vomiting Home Medications: Ibuprofen 200 mg PO TID PRN 07/09/18 - Past Medical/Surgical History Diabetic: No -: copd -: pancreatitis -: back pain -: bowel resection w/colostomy 2010 -: rt foot fx-1970 -: revision of colostomy 2014 -: Neck surgery-laminectomy 2015 - Family History Mother Medical History: Cancer Brother Medical History: Hypertension, Diabetes Father Medical History: Cancer Notes: father and mother both lung cancer - Social History Smoking Status: Current every day smoker Alcohol use: Yes CD- Drugs: No Caffeine use: Yes Place of Residence: Home Physical Examination Temp Pulse Resp BP Pulse Ox 98.3 F 86 19 134/80 95 07/10/18 08:00 07/10/18 10:00 07/10/18 10:00 07/10/18 10:00 07/10/18 10:00 General: Oriented x3 HEENT: Atraumatic Neck: Supple, Without JVD or thyroid abnormality Respiratory: Clear to auscultation bilaterally Cardiovascular: No edema Laboratory Data (last 24 hrs) 07/09/18 15:45: Uric Acid 1.8 L 07/09/18 13:20: Sodium 115 L*, Potassium 4.1, BUN 8, Creatinine 0.60, Glucose 76 , Magnesium 1.5 L, Total Bilirubin 0.5, AST 46 H, ALT 33, Alkaline Phosphatase 57, Lipase 179 - Problems (1) Hyponatremia Current Visit: Yes Status: Acute (2) Lung cancer Current Visit: Yes Status: Acute Qualifiers: Laterality: right (3) Alcohol abuse Current Visit: No Status: Acute (4) HTN (hypertension) Current Visit: No Status: Chronic Qualifiers: Hypertension type: essential hypertension Qualified Code(s): I10 - Essential (primary) hypertension Conclusions/Impression: A 58 Y/O man with Hx of COPD, DM on insulin, Bowel obstruction S/p colectomy, Hx of alcohol and tobacco use presented for LE weakness for few days duration denied nausea, vomiting, diarrhea, headache or palpitation in ER na was 114, K 3.[address] Rt hilar mass 4.3 cm Hyponatremia Likely SIADH from Lung mass urin osmol 390, Na 72 uric acid 1.8, TSH 2.5 Cortisol level was 1.0, yet Pt have high BP and K on lower normal side target na 6pm 120 Water restriction Cont Salt tablet and lasix Low cortisol level Cortisol level was 1.0, yet Pt have high BP and K on lower normal side will do consyntropin test Hypocalcemia Will replace Will check Phos level as pt might developed re-feeding syndrome Rt lung mass as per pulmonary hx of alacohol use no signs of withdrawal Monitor electrlyts
[2018-07-10] MEDS ORDERED: POTASSIUM 25 MEQ EFFERV TAB PO ONE (14:30)
--- NOTE | 2018-07-10 14:58 | P.PN ---
Subjective Date of Service: 07/10/18 Primary Care Provider: Dr. Kendall Chief Complaint: Weakness Subjective: Other (Patient improved.) Physical Examination - Vital Signs Temperature: 98.3 F Blood Pressure: 134/80 Pulse: 86 Respirations: 19 Pulse Ox (%): 95 - Physical Exam General: Alert, In no apparent distress, Cooperative HEENT: Atraumatic Neck: Supple Respiratory: Expiratory wheezes Cardiovascular: Normal pulses, Regular rate/rhythm Gastrointestinal: Normal bowel sounds, Soft and benign, Non-distended, No masses , No rebound, No guarding Musculoskeletal: No erythema, No tenderness, No warmth Integumentary: No tenderness/swelling, No erythema, No warmth, No cyanosis Neurological: Normal speech, Normal tone, Normal affect, Abnormal strength ( Weakness to the lower extremities bilateral) - Studies Laboratory Data (last 24 hrs) 07/09/18 15:45: Uric Acid 1.8 L Medications List Reviewed: Yes Assessment & Plan Discharge Plan: Other (Home versus skilled facility) Plan to discharge in: Greater than 2 days Physician Review Additional Text: Impression: Bilateral lower extremity weakness secondary to acute hyponatremia likely related to SIADH secondary to right hilar mass 4.3 cm right hilar mass likely neoplastic COPD Alcohol abuse Tobacco abuse Plan: Bilateral lower extremity weakness secondary to Acute hyponatremia likely related to SIADH secondary to right hilar mass: Sodium slowly improving. Nephrology adjusting medication. Patient on fluid restriction. Will monitor closely. 4.3 cm right hilar mass likely neoplastic: Right hilar mass evaluated. Pulmonology has evaluated patient. Patient will require bronchoscopy. If the patient remains through Saturday then bronchoscopy will be done. COPD: Continue with COPD treatment. Alcohol abuse: Continue with thiamine. No DTs noted. Will monitor closely. Tobacco abuse: Tobacco cessation addressed in detail. Time Spent Managing Pts Care (In Minutes): 55
[2018-07-10] MEDS ORDERED: CALCIUM GLUC 10% INJ 9.3 MEQ in NA CHLORIDE 0.9% 100 ML IV ONE (15:00)
[2018-07-10 18:30] LABS: BUN Blood Urea Nitrogen 8 mg/dL (7-18); Bicarbonate 26 mmol/L (21-32); Glucose Level 69 mg/dL (74-106); Magnesium 1.6 mg/dL (1.8-2.4); Potassium 4.1 mmol/L (3.5-5.1)
[2018-07-10 18:31] LABS: Sodium Level 119 mmol/L (136-145)
[2018-07-10] MEDS ORDERED: MAGNESIUM SULFATE 1 gm IVPB 1 GM/100 ML BAG IV ONE (19:07)
[2018-07-10] MEDS: CEPACOL LOZENGES PO PRN (19:32)
[2018-07-10] MEDS: ACETAMINOPHEN 500 MG TAB PO PRN (19:32)
[2018-07-11 06:23] LABS: ALT/SGPT 31 U/L (12-78); AST/SGOT 51 U/L (15-37); Albumin 3.3 g/dL (3.4-5.0); Alkaline Phosphatase 56 U/L (45-117); BUN Blood Urea Nitrogen 10 mg/dL (7-18); Bicarbonate 22 mmol/L (21-32); Bilirubin Total 0.7 mg/dL (0.2-1.0); Glucose Level 82 mg/dL (74-106); Magnesium 1.6 mg/dL (1.8-2.4); Potassium 4.9 mmol/L (3.5-5.1); Protein, Total 6.9 g/dL (6.4-8.2)
[2018-07-11 06:24] LABS: Sodium Level 117 mmol/L (136-145)
[2018-07-11 06:27] LABS: Absolute Monocytes 0.5 K/uL (0.1-1.3); Absolute Neutrophil 3.7 K/uL (1.8-8.0); Basophils % 0.6 % (0-1.3); Eosinophils % 1.4 % (0-4.4); Hematocrit 44.2 % (39.6-49.0); Lymphocytes % 18.5 % (15.3-44.8); MCH 33.2 pg (27.0-35.0); MPV 9.5 fL (7.6-11.3); Monocytes % 8.9 % (3.3-12.3); RBC Red Blood Cell Count 4.86 M/uL (4.33-5.43)
[2018-07-11] MEDS ORDERED: FUROSEMIDE 40 MG/4 ML VIAL IV ONE (06:57)
[2018-07-11] MEDS ORDERED: Magnesium Sulfate 2gm IVPB 2 G/50 ML BAG IV ONE (07:02)
[2018-07-11] MEDS: ARFORMOTEROL TARTRATE 15 MCG/2 ML VIAL.NEB NEB SCH ×2 (07:33→19:59)
[2018-07-11] MEDS ORDERED: COSYNTROPIN 0.25 MG VIAL IV ONE (08:00)
[2018-07-11] MEDS ORDERED: SODIUM CHLORIDE 0.9% 10ML INJ IV ONE (08:00)
[2018-07-11] MEDS ORDERED: FUROSEMIDE 40 MG TABLET PO SCH (09:00)
[2018-07-11] MEDS: ENOXAPARIN 40 MG/0.4 ML SQ SCH (09:36)
[2018-07-11] MEDS: SODIUM CHLORIDE 1 GM TAB PO SCH ×3 (09:37→21:28)
[2018-07-11] MEDS: THIAMINE HCL 100 MG TABLET PO SCH (09:37)
[2018-07-11] MEDS: FOLIC ACID 1 MG TABLET PO SCH (09:37)
[2018-07-11] MEDS ORDERED: CYANOCOBALAMIN 1000MCG/ML INJ SQ SCH (10:00)
--- NOTE | 2018-07-11 10:39 | P.PN ---
Subjective Date of Service: 07/11/18 Primary Care Provider: Dr. Kendall Chief Complaint: Weakness Subjective: Other (Patient still feels weak but slightly improved. Mentation within normal limits.) Physical Examination - Vital Signs Temperature: 98.7 F Blood Pressure: 108/68 Pulse: 76 Respirations: 16 Pulse Ox (%): 98 - Physical Exam General: Alert, In no apparent distress, Oriented x3, Cooperative HEENT: Atraumatic Neck: Supple Respiratory: Clear to auscultation bilaterally, Normal air movement Cardiovascular: Normal pulses, Regular rate/rhythm Gastrointestinal: Normal bowel sounds, Soft and benign, Non-distended, No masses , No rebound, No guarding Musculoskeletal: No tenderness, No warmth Neurological: Normal speech, Normal strength at 5/5 x4 extr, Normal tone, Other (Improve strength to the lower extremities) - Studies Medications List Reviewed: Yes Assessment & Plan Discharge Plan: Other (Home with home health versus skilled placement) Plan to discharge in: Greater than 2 days Physician Review Additional Text: Impression: Bilateral lower extremity weakness secondary to acute hyponatremia 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 Nephrology continues to adjust medication-salt tablets. Magnesium replaced this morning. Awaiting results from cortisol stimulation test. Will discuss case further with nephrology. Will continue monitor closely. Will physical therapy assess ambulation. Patient remains in ICU due to hyponatremia. Patient will likely need skilled placement. Will discuss with social media editor. 4.3 cm right hilar mass likely neoplastic: Right hilar mass evaluated. Pulmonology has evaluated patient. Patient will require bronchoscopy. If the patient remains through Saturday then bronchoscopy will be done. COPD: Continue with COPD treatment. Will wean off oxygen. Will monitor closely. Hypomagnesia: Continue to replace and monitor properly. Alcohol abuse: Continue with thiamine. No DTs noted. Will monitor closely. Tobacco abuse: Tobacco cessation addressed in detail. THC use: Patient will be counseled on cessation. Malnutrition: Continue to encourage oral intake. Time Spent Managing Pts Care (In Minutes): 55
[2018-07-11] MEDS ORDERED: CYANOCOBALAMIN 1000MCG/ML INJ SQ ONE (12:00)
[2018-07-11 12:22] LABS: BUN Blood Urea Nitrogen 10 mg/dL (7-18); Bicarbonate 18 mmol/L (21-32); Glucose Level 117 mg/dL (74-106); Magnesium 2.3 mg/dL (1.8-2.4); Potassium 4.4 mmol/L (3.5-5.1)
[2018-07-11 12:23] LABS: Sodium Level 119 mmol/L (136-145)
--- NOTE | 2018-07-11 13:50 | P.PN ---
Subjective Date of Service: 07/11/18 Primary Care Provider: Dr. Kendall Chief Complaint: COPD exacerbation right lung mass with hypernatremia No change in patient's condition is still feels very weak has some cough congestion lower extremity weakness patient is still hypernatremic Review of Systems General: Weakness Respiratory: Cough, Shortness of Breath Physical Examination - Vital Signs Temperature: 98.3 F Blood Pressure: 119/80 Pulse: 74 Respirations: 16 Pulse Ox (%): 99 - Physical Exam General: Alert, Oriented x1, Cooperative Respiratory: Expiratory wheezes, Rhonchi/gurgles Cardiovascular: No edema, Regular rate/rhythm - Studies Medications List Reviewed: Yes Assessment & Plan - Problems (Diagnosis) (1) Hyponatremia Current Visit: Yes Status: Acute Plan: Patient continues to remain hypernatremic seen by Nephrology patient is on p.o. 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 cosyntropin stimulation test is negative (2) Lung cancer Current Visit: Yes Status: Acute Plan: Patient has a right-sided hilar mass most likely he has lung cancer Oneal small- cell once is hyponatremia is corrected he will be scheduled for a bronchoscopy and biopsy Qualifiers: Laterality: right (3) COPD (chronic obstructive pulmonary disease) Current Visit: Yes Status: Acute Plan: I suspect patient has COPD continue with bronchodilators at steroids patient's vital signs satisfactory and is he does not require oxygen Qualifiers: Emphysema type: unspecified Physician Review Additional Text: Impression: Bilateral lower extremity weakness secondary to acute hyponatremia 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 Nephrology continues to adjust medication-salt tablets. Magnesium replaced this morning. Awaiting results from cortisol stimulation test. Will discuss case further with nephrology. Will continue monitor closely. Will physical therapy assess ambulation. Patient remains in ICU due to hyponatremia. Patient will likely need skilled placement. Will discuss with director of social work. 4.3 cm right hilar mass likely neoplastic: Right hilar mass evaluated. Pulmonology has evaluated patient. Patient will require bronchoscopy. If the patient remains through Saturday then bronchoscopy will be done. COPD: Continue with COPD treatment. Will wean off oxygen. Will monitor closely. Hypomagnesia: Continue to replace and monitor properly. Alcohol abuse: Continue with thiamine. No DTs noted. Will monitor closely. Tobacco abuse: Tobacco cessation addressed in detail. THC use: Patient will be counseled on cessation. Malnutrition: Continue to encourage oral intake.
[2018-07-11] MEDS: predniSONE 20 MG TAB PO SCH ×2 (13:57→21:28)
[2018-07-11] MEDS: NICOTINE 21 MG/PAT TD SCH (13:57)
[2018-07-11 14:23] LABS: Urine Appearance CLEAR; Urine Bilirubin NEGATIVE (NEG); Urine Blood NEGATIVE (NEG); Urine Color YELLOW; Urine Glucose NEGATIVE (NEG); Urine Protein NEGATIVE (NEG); Urine Specific Gravity <=1.005 (1.005-1.030); Urine Urobilinogen 0.2 mg/dL (0.2-1.0)
[2018-07-11] MEDS: IPRATROPIUM BROM 0.5MG/2.5ML NEB SCH ×2 (14:28→19:59)
[2018-07-11 14:50] LABS: Urine Microscopic Reflex ORDER UMIC
[2018-07-11 15:23] LABS: Urine Bacteria 20-50 /HPF (NONE SEEN); Urine RBC <5 /HPF (NONE SEEN)
[2018-07-11 15:24] LABS: Urine Amorphous Sediment 1+ /HPF (NONE SEEN); Urine Culture Reflex Order REFLEXED
--- NOTE | 2018-07-11 16:01 | P.PN ---
Subjective Date of Service: 07/11/18 Primary Care Provider: Dr. Kendall Chief Complaint: COPD exacerbation right lung mass with hypernatremia Na still 119 Cosyntropin test -ve Will give tolvaptan b12 replaced Labs tonight liberalize fluid intake when give tolvaptan Physical Examination - Vital Signs Temperature: 98.3 F Blood Pressure: 126/83 Pulse: 77 Respirations: 14 Pulse Ox (%): 99 - Physical Exam General: Oriented x3 Neck: Supple, Without JVD or thyroid abnormality Respiratory: Clear to auscultation bilaterally Cardiovascular: No edema - Studies Medications List Reviewed: Yes Assessment And Plan - Current Problems (Diagnosis) (1) Hyponatremia Current Visit: Yes Status: Acute (2) Lung cancer Current Visit: Yes Status: Acute Qualifiers: Laterality: right (3) Alcohol abuse Current Visit: No Status: Acute (4) HTN (hypertension) Current Visit: No Status: Chronic Qualifiers: Hypertension type: essential hypertension Qualified Code(s): I10 - Essential (primary) hypertension - Plan A 58 Y/O man with Hx of COPD, DM on insulin, Bowel obstruction S/p colectomy, Hx of alcohol and tobacco use presented for LE weakness for few days duration denied nausea, vomiting, diarrhea, headache or palpitation in ER na was 114, K 3.[address] Rt hilar mass 4.3 cm Hyponatremia Likely SIADH from Lung mass urin osmol 390, Na 72 uric acid 1.8, TSH 2.5 Na not improving on Salt tablet Will give tolvaptan 7.5mg po today and monitor Serum Na Liberalize fluid intake while on on tolvaptan Cont Salt tablet and lasix Low cortisol level consyntropin test: -v e Hypocalcemia Corrceted Rt lung mass as per pulmonary hx of alacohol use no signs of withdrawal Monitor electrlyts
[2018-07-11] MEDS: TOLVAPTAN 15 MG PO SCH (18:16)
[2018-07-11 22:25] LABS: Potassium 3.7 mmol/L (3.5-5.1)
[2018-07-11] MEDS: ACETAMINOPHEN 500 MG TAB PO PRN (22:37)
[2018-07-12] MEDS: IPRATROPIUM BROM 0.5MG/2.5ML NEB SCH ×4 (01:55→19:53)
[2018-07-12 05:15] LABS: Absolute Lymphocytes (CBC) 0.4 K/uL (0.7-4.9); Absolute Monocytes 0.2 K/uL (0.1-1.3); Basophils % 0.6 % (0-1.3); Hematocrit 45.2 % (39.6-49.0); Lymphocytes % 5.4 % (15.3-44.8); MCH 32.6 pg (27.0-35.0); MCV 93.2 fL (80-100); MPV 9.9 fL (7.6-11.3); Monocytes % 2.9 % (3.3-12.3); RBC Red Blood Cell Count 4.85 M/uL (4.33-5.43)
[2018-07-12 05:27] LABS: Albumin 3.5 g/dL (3.4-5.0); Bilirubin Total 0.4 mg/dL (0.2-1.0); Magnesium 1.9 mg/dL (1.8-2.4); Phosphorus 2.6 mg/dL (2.5-4.9); Potassium 3.7 mmol/L (3.5-5.1); Protein, Total 7.4 g/dL (6.4-8.2)
[2018-07-12 05:53] LABS: Blood Morphology Comment NOT SEEN (NOT SEEN); Platelet Estimate ADEQ
[2018-07-12] MEDS: ARFORMOTEROL TARTRATE 15 MCG/2 ML VIAL.NEB NEB SCH ×2 (07:48→19:53)
[2018-07-12] MEDS ORDERED: POTASSIUM 25 MEQ EFFERV TAB PO ONE (08:00)
[2018-07-12] MEDS ORDERED: D50W 25 GM/50 ML SYRINGE IV PRN (08:41)
[2018-07-12] MEDS ORDERED: GLUCAGON 1 MG/VIAL IM PRN (08:41)
--- NOTE | 2018-07-12 08:48 | P.PN ---
Subjective Date of Service: 07/12/18 Primary Care Provider: Dr. Kendall Chief Complaint: COPD exacerbation right lung mass with hypernatremia Subjective: Improving (Patient was able to stain yesterday. Weakness improved.) Physical Examination - Vital Signs Temperature: 98.4 F Blood Pressure: 118/64 Pulse: 121 Respirations: 16 Pulse Ox (%): 94 - Physical Exam General: Alert, In no apparent distress, Oriented x3, Cooperative HEENT: Atraumatic Neck: Supple Respiratory: Clear to auscultation bilaterally, Normal air movement Cardiovascular: Normal pulses, Regular rate/rhythm Gastrointestinal: Normal bowel sounds, Soft and benign, Non-distended, No tenderness, No masses, No rebound, No guarding Musculoskeletal: No erythema, No tenderness, No warmth Integumentary: No tenderness/swelling, No erythema, No warmth, No cyanosis Neurological: Normal speech, Normal strength at 5/5 x4 extr, Normal tone, Normal affect - Studies Medications List Reviewed: Yes Assessment & Plan Discharge Plan: Home Plan to discharge in: Greater than 2 days Physician Review Additional Text: Impression: Bilateral lower extremity weakness secondary to acute hyponatremia 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 Nephrology continues to adjust medication/salt tablets. Continue to replace electrolytes. Cortisol stimulation test unremarkable. Will transfer to the floor if okay with nephrology. Will continue with physical therapy to ambulate. Patient to have bronchoscopy on Saturday. Likely discharge after bronchoscopy on Saturday. 4.3 cm right hilar mass likely neoplastic: Right hilar mass evaluated. Pulmonology has evaluated patient. Patient will have bronchoscopy on Saturday. COPD: Continue with COPD treatment. Will wean off oxygen. Will monitor closely. Hypomagnesia: Continue to replace and monitor properly. Alcohol abuse: Continue with thiamine. No DTs noted. Will monitor closely. Tobacco abuse: Tobacco cessation addressed in detail. Patient may require nicotine patch if needed. THC use: Continue with THC cessation education. Malnutrition: Continue to encourage oral intake. Hyperglycemia: Will check A1c to evaluate for diabetes. Will place on a sliding scale. Will monitor Accu-Cheks. Hyperglycemia likely related to steroids. Time Spent Managing Pts Care (In Minutes): 55
[2018-07-12] MEDS ORDERED: D5W 1,000 ML IV SCH ×3 (09:01→20:00)
[2018-07-12] MEDS: predniSONE 20 MG TAB PO SCH ×2 (09:07→20:15)
[2018-07-12] MEDS: NICOTINE 21 MG/PAT TD SCH (09:07)
[2018-07-12] MEDS: THIAMINE HCL 100 MG TABLET PO SCH (09:07)
[2018-07-12] MEDS: FOLIC ACID 1 MG TABLET PO SCH (09:07)
[2018-07-12] MEDS: ENOXAPARIN 40 MG/0.4 ML SQ SCH (09:08)
[2018-07-12] MEDS: TOLVAPTAN 15 MG PO SCH (09:09)
[2018-07-12] MEDS: INSULIN -REGULAR HUMAN 50 UNIT/0.5 ML ML SQ SCH ×3 (11:26→20:15)
[2018-07-12] MEDS: D5W 1,000 ML IV SCH ×5 (11:26→22:59)
--- NOTE | 2018-07-12 17:43 | PN ---
Date of Progress Note: 07/12/2018 History: The patient was admitted with weakness, fatigue, found to have severe hyponatremia. The pa uriah failed on salt tablet with Lasix. For that reason, the patient was started on tolvaptan. The patient received 7.5 mg of tolvaptan. His urine output improved significantly. The patient was almo st 5 L in the last 24 hours. His sodium corrected and in fact it is slightly overcorrected. Physical Examination: Vital Signs: When I saw the patient, blood pressure 129/72, pulse of 88. Chest: Clear to auscultation. Heart: S1, S2. Regular. Abdomen: Soft. Nontender. Extremity: No edema. : The patient had urine output of 5200. Current Medications: 1.As I mentioned, the patient received tolvaptan 15 mg. 2.Dextrose D5 100 per hour. 3.Lorazepam. 4.Nicotine patch. Laboratory Data: WBC 7.5, H and H 15.8/45.2, platelet of 162. Sodium 132, potassium 4, bicarb 24, B UN 12, creatinine 0.9, calcium 8.4. Early in the morning at 4 o'clock which was 8 hours apart, sodiu m was 131. Yesterday around 10 o'clock it was 124, so patient in the last 14 hours has luna by 8. Assessment And Plan: 1.Hyponatremia, secondary possible to syndrome of inappropriate secretion of antidiuretic hormone se condary to paraneoplastic secondary to the lung mass superimposed with nonsteroidal use. Overcorrect ion. I agree on the D5. I am going to go ahead and increase the rate to 1-1.25 of the urine output. We will repeat the lab in 4 hours from that change and we will repeat with urine electrolytes. 2.Hypertension, controlled optimal. 3.Lung mass. Plan for bronchoscopy on Saturday. We will follow up with Pulmonary. 4.Leukocytosis, resolved. 5.Alcohol intoxication, stabilized. LEIF/BRIAN Voice ID: [id number] Report ID: [id number]
[2018-07-12 18:23] LABS: Potassium 3.7 mmol/L (3.5-5.1)
[2018-07-12 19:10] LABS: UR SODIUM 8 mmol/L (27-287)
[2018-07-12 19:17] LABS: UR POTASSIUM < 1.0 mmol/L (20-40)
[2018-07-12 19:18] LABS: Urine Appearance CLEAR; Urine Bilirubin NEGATIVE (NEG); Urine Blood NEGATIVE (NEG); Urine Color YELLOW; Urine Glucose 2+ (NEG); Urine Protein NEGATIVE (NEG); Urine Specific Gravity <=1.005 (1.005-1.030); Urine Urobilinogen 0.2 mg/dL (0.2-1.0); Urine pH 6.5 (5.0-7.0)
[2018-07-12 19:40] LABS: Urine Microscopic Reflex ORDER UMIC
[2018-07-12 19:42] LABS: Urine Bacteria NONE SEEN /HPF (NONE SEEN); Urine Culture Reflex Order REFLEXED; Urine RBC NONE SEEN /HPF (NONE SEEN)
[2018-07-12] MEDS ORDERED: FLUTICASONE 50MCG NASAL SPRAY NAS PRN (21:18)
[2018-07-12] MEDS: ALBUTEROL 2.5 MG/3 ML NEB SOL NEB PRN (21:35)
[2018-07-12] MEDS: CEPACOL LOZENGES PO PRN (23:15)
[2018-07-12] MEDS: ACETAMINOPHEN 500 MG TAB PO PRN (23:15)
[2018-07-13] MEDS: D5W 1,000 ML IV SCH ×2 (01:06→16:14)
[2018-07-13] MEDS: IPRATROPIUM BROM 0.5MG/2.5ML NEB SCH ×4 (01:15→19:35)
[2018-07-13 01:41] LABS: UR SODIUM 7 mmol/L (27-287)
[2018-07-13 01:57] LABS: BUN Blood Urea Nitrogen 6 mg/dL (7-18); Bicarbonate 21 mmol/L (21-32); Glucose Level 241 mg/dL (74-106); Potassium 3.9 mmol/L (3.5-5.1); Sodium Level 125 mmol/L (136-145)
[2018-07-13 02:26] LABS: UR POTASSIUM < 1.0 mmol/L (20-40)
[2018-07-13 02:35] LABS: Urine Appearance CLEAR; Urine Bilirubin NEGATIVE (NEG); Urine Blood NEGATIVE (NEG); Urine Color YELLOW; Urine Glucose TRACE (NEG); Urine Protein NEGATIVE (NEG); Urine Specific Gravity <=1.005 (1.005-1.030); Urine Urobilinogen 0.2 mg/dL (0.2-1.0); Urine pH 6.5 (5.0-7.0)
[2018-07-13 02:37] LABS: Urine Microscopic Reflex NO UMIC
[2018-07-13] MEDS: POTASSIUM 25 MEQ EFFERV TAB PO ONE ×2 (03:41→04:43)
[2018-07-13] MEDS: LORazepam 2 MG/ML VIAL IV PRN (05:20)
[2018-07-13 05:45] VITALS: BMI 18.1
[2018-07-13 05:52] LABS: Magnesium 1.5 mg/dL (1.8-2.4); Phosphorus 1.7 mg/dL (2.5-4.9)
[2018-07-13 05:57] LABS: Absolute Lymphocytes (CBC) 0.9 K/uL (0.7-4.9); Absolute Monocytes 0.6 K/uL (0.1-1.3); Absolute Neutrophil 13.1 K/uL (1.8-8.0); Basophils % 0.2 % (0-1.3); Hematocrit 38.3 % (39.6-49.0); Lymphocytes % 6.4 % (15.3-44.8); MCH 32.1 pg (27.0-35.0); MCV 92.7 fL (80-100); MPV 9.6 fL (7.6-11.3); RBC Red Blood Cell Count 4.13 M/uL (4.33-5.43)
[2018-07-13] MEDS ORDERED: POTASSIUM CL SA 10 MEQ TAB PO ONE (06:00)
[2018-07-13] MEDS ORDERED: POTASSIUM PHOS IN 0.9 % NACL 15 MMOL/250 ML BAG IV ONE (07:00)
[2018-07-13] MEDS ORDERED: Magnesium Sulfate 2gm IVPB 2 G/50 ML BAG IV ONE (07:00)
[2018-07-13] MEDS: INSULIN -REGULAR HUMAN 50 UNIT/0.5 ML ML SQ SCH ×4 (07:30→20:18)
[2018-07-13] MEDS: ARFORMOTEROL TARTRATE 15 MCG/2 ML VIAL.NEB NEB SCH ×2 (07:32→19:35)
[2018-07-13] MEDS: ENOXAPARIN 40 MG/0.4 ML SQ SCH (08:28)
[2018-07-13] MEDS: THIAMINE HCL 100 MG TABLET PO SCH (08:29)
[2018-07-13] MEDS: predniSONE 20 MG TAB PO SCH ×2 (08:29→20:18)
[2018-07-13] MEDS: NICOTINE 21 MG/PAT TD SCH (08:29)
[2018-07-13] MEDS: FOLIC ACID 1 MG TABLET PO SCH (08:29)
[2018-07-13 08:33] LABS: Blood Morphology Comment NOT SEEN (NOT SEEN); Platelet Estimate ADEQ; Urine White Blood Cell Casts OK
[2018-07-13 09:35] LABS: BUN Blood Urea Nitrogen 5 mg/dL (7-18); Bicarbonate 24 mmol/L (21-32); Glucose Level 127 mg/dL (74-106); Potassium 4.9 mmol/L (3.5-5.1); Sodium Level 132 mmol/L (136-145)
--- NOTE | 2018-07-13 10:25 | P.PN ---
Subjective Date of Service: 07/13/18 Primary Care Provider: Dr. Kendall Chief Complaint: COPD exacerbation right lung mass with hypernatremia Subjective: Improving Physical Examination - Vital Signs Temperature: 98 F Blood Pressure: 141/87 Pulse: 82 Respirations: 19 Pulse Ox (%): 100 - Physical Exam General: Alert, In no apparent distress, Oriented x3, Cooperative HEENT: Atraumatic Neck: Supple Respiratory: Clear to auscultation bilaterally, Normal air movement Cardiovascular: Normal pulses, Regular rate/rhythm Gastrointestinal: Normal bowel sounds, Soft and benign, Non-distended, No tenderness, No masses, No rebound, No guarding Musculoskeletal: No erythema, No tenderness, No warmth Integumentary: No tenderness/swelling, No erythema, No warmth, No cyanosis Neurological: Normal speech, Normal strength at 5/5 x4 extr, Normal tone, Normal affect - Studies Medications List Reviewed: Yes Assessment & Plan Discharge Plan: Home Plan to discharge in: 48 Hours Physician Review Additional Text: Impression: Bilateral lower extremity weakness secondary to acute hyponatremia 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 Nephrology continues to adjust medication and salt tablets. Will continue monitor levels closely. Will continue physical therapy. Will transition patient to medical floor. Patient have bronchoscopy tomorrow. Will need to assess ambulation tomorrow for possible discharge in the next 1-2 days or the patient will require skilled placement. 4.3 cm right hilar mass likely neoplastic: Right hilar mass evaluated. Pulmonology has evaluated patient. Patient will have bronchoscopy on Saturday. COPD: Continue with COPD treatment. Will wean off oxygen. Will monitor closely. Hypomagnesia: Continue to replace and monitor properly. Alcohol abuse: Continue with thiamine. No DTs noted. Will monitor closely. Tobacco abuse: Tobacco cessation addressed in detail. Patient may require nicotine patch if needed. THC use: Continue with THC cessation education. Malnutrition: Continue to encourage oral intake. Hyperglycemia secondary to steroid use: A1c 5.6. Hyperglycemia likely related to steroids. Will place on a sliding scale. Will monitor Accu-Cheks. Hyperglycemia likely related to steroids. Time Spent Managing Pts Care (In Minutes): 55
[2018-07-13 14:19] LABS: BUN Blood Urea Nitrogen 8 mg/dL (7-18); Bicarbonate 24 mmol/L (21-32); Glucose Level 158 mg/dL (74-106); Magnesium 1.9 mg/dL (1.8-2.4); Potassium 4.4 mmol/L (3.5-5.1); Sodium Level 136 mmol/L (136-145)
[2018-07-13 15:32] LABS: Urine Appearance CLEAR; Urine Bilirubin NEGATIVE (NEG); Urine Blood NEGATIVE (NEG); Urine Color YELLOW; Urine Glucose NEGATIVE (NEG); Urine Protein NEGATIVE (NEG); Urine Specific Gravity <=1.005 (1.005-1.030); Urine Urobilinogen 0.2 mg/dL (0.2-1.0)
[2018-07-13 15:51] LABS: Urine Microscopic Reflex NO UMIC
--- NOTE | 2018-07-13 21:02 | PN ---
Date of Progress Note: 07/13/2018 Subjective: The patient was admitted with weakness, fatigue, found to have severe hypernatremia. St arted on salt tablet, failed; started on tolvaptan, received 2 doses, had over-correction in the last couple of days, currently plateaued. Physical Examination: Vital Signs: When I saw the patient, blood pressure 131/63, pulse of 90. Chest: Clear to auscultation. Heart: S1, S2. Regular. Abdomen: Soft, nontender. EXTREMITIES: No edema. Laboratory Data: WBC 14.6. H and H 13.2/38.3. Sodium 132, potassium 4.5, bicarb 24, BUN 5, creatin ine 0.8, calcium 8.7. Assessment And Plan: 1.Hyponatremia secondary to possible syndrome of inappropriate antidiuretic hormone secretion/recent osmolality, overcorrected, currently plateaued. I am going to request another set of labs. The pat ient off IV fluid but severely polyuric, had almost more than 5 liters over 24 hours but currently sl owing down. Depending on the repeated lab, we will decide if we need to resume D5 or we will continu e to monitor. 2.Hypertension, controlled. 3.Lung mass. We will follow up with Pulmonary, plan for a scope tomorrow. LEIF/BRIAN Voice ID: [id number] Report ID: [id number]
[2018-07-14] MEDS: IPRATROPIUM BROM 0.5MG/2.5ML NEB SCH ×4 (01:30→19:51)
[2018-07-14] MEDS: HYDRALAZINE HCL 20 MG/ML VIAL IV PRN ×2 (04:34→17:26)
[2018-07-14 06:22] LABS: Absolute Lymphocytes (CBC) 1.1 K/uL (0.7-4.9); Absolute Monocytes 0.5 K/uL (0.1-1.3); Absolute Neutrophil 12.2 K/uL (1.8-8.0); Basophils % 0.1 % (0-1.3); Hematocrit 38.2 % (39.6-49.0); Lymphocytes % 7.9 % (15.3-44.8); MCH 32.4 pg (27.0-35.0); MCV 92.8 fL (80-100); MPV 9.8 fL (7.6-11.3); Monocytes % 3.6 % (3.3-12.3); RBC Red Blood Cell Count 4.12 M/uL (4.33-5.43)
[2018-07-14 06:45] LABS: ALT/SGPT 25 U/L (12-78); AST/SGOT 20 U/L (15-37); Albumin 3.1 g/dL (3.4-5.0); Alkaline Phosphatase 52 U/L (45-117); BUN Blood Urea Nitrogen 7 mg/dL (7-18); Bicarbonate 22 mmol/L (21-32); Bilirubin Total 0.4 mg/dL (0.2-1.0); Glucose Level 100 mg/dL (74-106); Magnesium 1.9 mg/dL (1.8-2.4); Phosphorus 4.1 mg/dL (2.5-4.9); Potassium 4.2 mmol/L (3.5-5.1); Protein, Total 6.8 g/dL (6.4-8.2); Sodium Level 134 mmol/L (136-145)
[2018-07-14] MEDS: INSULIN -REGULAR HUMAN 50 UNIT/0.5 ML ML SQ SCH ×4 (07:30→20:56)
[2018-07-14] MEDS: ENOXAPARIN 40 MG/0.4 ML SQ SCH (09:44)
[2018-07-14] MEDS: FOLIC ACID 1 MG TABLET PO SCH (09:44)
[2018-07-14] MEDS: NICOTINE 21 MG/PAT TD SCH (09:44)
[2018-07-14] MEDS: predniSONE 20 MG TAB PO SCH ×2 (09:44→20:59)
[2018-07-14] MEDS: THIAMINE HCL 100 MG TABLET PO SCH (09:44)
[2018-07-14] MEDS: D5W 1,000 ML IV SCH ×2 (09:46→17:00)
[2018-07-14] MEDS: ACETAMINOPHEN 500 MG TAB PO PRN ×2 (11:17→23:23)
--- NOTE | 2018-07-14 12:11 | P.PN ---
Subjective Date of Service: 07/14/18 Primary Care Provider: Dr. Kendall Chief Complaint: COPD exacerbation right lung mass with hypernatremia Subjective: Other (Patient continues to improve. Still with some weakness to the lower extremity) Physical Examination - Vital Signs Temperature: 97.9 F Blood Pressure: 133/75 Pulse: 73 Respirations: 24 Pulse Ox (%): 98 - Physical Exam General: Alert, In no apparent distress, Oriented x3, Cooperative HEENT: Atraumatic Neck: Supple Respiratory: Other (Improved aeration bilateral) Cardiovascular: Normal pulses, Regular rate/rhythm Gastrointestinal: Normal bowel sounds, Soft and benign, Non-distended, No tenderness, No masses, No rebound, No guarding Musculoskeletal: No erythema, No tenderness, No warmth Integumentary: No tenderness/swelling, No erythema, No warmth, No cyanosis Neurological: Normal speech, Normal strength at 5/5 x4 extr, Normal tone - Studies Microbiology Data (last 24 hrs): 07/09/18 11:45 Blood - Blood Aerobic Blood Culture - Final No growth in 5 days. 07/09/18 11:45 Blood - Blood Anaerobic Blood Culture - Final No growth in 5 days. 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 Will continue to monitor closely. Case discussed with nephrology yesterday. Bronchoscopy to be done tomorrow instead of today. Discussed at length with patient concerning overall care. Will physical therapy assess ambulation. Will need to consider skilled placement if still with weakness will monitor closely. Encourage alcohol cessation. 4.3 cm right hilar mass likely neoplastic: Right hilar mass evaluated. Pulmonology has evaluated patient. Patient will have bronchoscopy tomorrow. COPD: Continue with COPD treatment. Will wean off oxygen. Will monitor closely. Hypomagnesia: Continue to replace and monitor properly. Alcohol abuse: Continue with thiamine. No DTs noted. Alcohol cessation addressed in detail with the patient today along with family. Patient understands this. He will try his best. He reports there is no guarantee that he will stop completely. Tobacco abuse: Tobacco cessation addressed in detail. Patient may require nicotine patch if needed. THC use: Continue with THC cessation education. Malnutrition: Continue to encourage oral intake. Hyperglycemia secondary to steroid use: A1c 5.6. Hyperglycemia likely related to steroids. Will place on a sliding scale. Will monitor Accu-Cheks. Hyperglycemia likely related to steroids. Time Spent Managing Pts Care (In Minutes): 55
[2018-07-14] MEDS: ARFORMOTEROL TARTRATE 15 MCG/2 ML VIAL.NEB NEB SCH ×2 (13:50→19:51)
[2018-07-14 16:56] LABS: BUN Blood Urea Nitrogen 12 mg/dL (7-18); Bicarbonate 24 mmol/L (21-32); Glucose Level 102 mg/dL (74-106); Potassium 4.5 mmol/L (3.5-5.1); Sodium Level 130 mmol/L (136-145)
--- NOTE | 2018-07-14 21:51 | PN ---
Date of Progress Note: 07/14/2018 Chief Complaint: Hyponatremia, hypoosmolar. Subjective: The patient presented to the hospital with severe hyponatremia. The patient was started on salt tablet and subsequently received 3 days' treatment with tolvaptan. Currently, sodium level is plateauing. Review of Systems: Denies fever, chills. Physical Examination: Lungs: Clear to auscultation bilaterally. Heart: S1, S2. Abdomen: Soft, benign. Extremities: No edema. Assessment And Plan: 1.Hyponatremia secondary to possible SIADH. The patient although has history of nonsteroidal anti-i nflammatory medication. I discussed with the patient to avoid ibuprofen. The patient apparently was taking ibuprofen prior to this admission. 2.Leukocytosis, workup per primary team. 3.Hypertension, controlled. 4.Lung mass. The patient is undergoing workup. MARTINA/BRIAN Voice ID: [id number] Report ID: [id number]
[2018-07-15] MEDS: D5W 1,000 ML IV SCH (00:32)
[2018-07-15] MEDS: IPRATROPIUM BROM 0.5MG/2.5ML NEB SCH ×3 (04:20→13:20)
[2018-07-15] MEDS: ALBUTEROL 2.5 MG/3 ML NEB SOL NEB PRN (04:20)
[2018-07-15] MEDS ORDERED: Phenylephrine HCl 10 MG/ML 1 ML VIAL ONE (07:04)
[2018-07-15] MEDS ORDERED: LIDOCAINE 4% TOP SOLUTION ONE (07:05)
[2018-07-15] MEDS ORDERED: GLYCOPYRROLATE 0.2 MG/ML SYR ONE (07:05)
[2018-07-15] MEDS ORDERED: LIDOCAINE 1% MPF 30 ML VIAL ONE (07:05)
[2018-07-15] MEDS ORDERED: LIDOCAINE VISCOUS 2% SOLN 15 ML UDC ONE (07:05)
[2018-07-15] MEDS: ARFORMOTEROL TARTRATE 15 MCG/2 ML VIAL.NEB NEB SCH (07:30)
[2018-07-15] MEDS: INSULIN -REGULAR HUMAN 50 UNIT/0.5 ML ML SQ SCH ×2 (07:30→11:30)
[2018-07-15 08:27] VITALS: O2SAT 97
[2018-07-15] MEDS: NICOTINE 21 MG/PAT TD SCH (09:48)
[2018-07-15] MEDS: THIAMINE HCL 100 MG TABLET PO SCH (09:48)
[2018-07-15] MEDS: predniSONE 20 MG TAB PO SCH (09:48)
[2018-07-15] MEDS: ENOXAPARIN 40 MG/0.4 ML SQ SCH (09:49)
[2018-07-15] MEDS: FOLIC ACID 1 MG TABLET PO SCH (09:49)
[2018-07-15 11:05] LABS: BUN Blood Urea Nitrogen 14 mg/dL (7-18); Bicarbonate 24 mmol/L (21-32); Glucose Level 84 mg/dL (74-106); Potassium 3.6 mmol/L (3.5-5.1); Sodium Level 130 mmol/L (136-145)
[2018-07-15 12:36] LABS: BUN Blood Urea Nitrogen 15 mg/dL (7-18); Bicarbonate 26 mmol/L (21-32); Glucose Level 145 mg/dL (74-106); Sodium Level 130 mmol/L (136-145)
--- NOTE | 2018-07-15 13:16 | P.DS ---
Admission Date: 07/09/18 Discharge Date: 07/15/18 Primary Care Provider: Dr. Kendall Disposition: ROUTINE DISCHARGE Discharge Condition: GOOD Reason for Admission: COPD exacerbation right lung mass with hypernatremia Consultations: Pulmonary-Dr. Brenner Nephrology-Dr. Kirkpatrick Procedures: CT chest: COMPARISON: July 09, 2018 chest x-ray TECHNIQUE: Computed axial tomography of the chest was obtained. 100 cc Isovue 300 was administered intravenously. All CT scans are performed using dose optimization technique as appropriate and may include automated exposure control or mA/KV adjustment according to patient size. FINDINGS: A 4.3 centimeter right hilar mass is present. The mass encases of right lower lobe pulmonary artery. Bronchus intermedius is narrowed. 1 centimeter aorticopulmonary window lymph node is seen. Left lung is clear A pleural effusion is not present. A pericardial effusion is not noted IMPRESSION: 4.3 centimeter right hilar mass likely representing neoplasm. Bronchoscopy is recommended MRI Brain: COMPARISON: CT head same date TECHNIQUE: Sagittal T1-weighted images were obtained along with axial PD, heavily T2-weighted and T2-FLAIR images. Axial DWI and ADC mapping sequences were also obtained along with coronal heavily T2-weighted images. FINDINGS: No intracranial hemorrhage, mass or acute infarction. There is no edema or shift of midline structures. No extra-axial fluid collections. Kaufman- matter/white matter junction is preserved. Signal voids are seen as a normal finding in the major intracranial vessels. No significant atrophy. The patient has a few scattered areas of T2/IR signal abnormality in the white matter of each cerebral hemisphere. This is most typically associated with chronic ischemic change. Minimal hypointense signal seen on diffusion-weighted imaging and heavily T2 weighted imaging may be from iron deposition or hemosiderin. No acute intracranial process seen. Mastoid air cells and paranasal sinuses are clear. IMPRESSION: No acute infarction. No hemorrhage, mass or other acute intracranial finding. A few scattered areas of abnormal T2 signal are present most commonly due to chronic ischemic change. 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 Patient with history of COPD, tobacco use , THC use and alcohol use. Patient found to have severe hyponatremia. Patient was admitted for further evaluation. Hospital Course: Patient presented with bilateral lower extremity weakness. Patient found to be severely hypernatremic. 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 CT chest showed a 4.3 cm right hilar mass. This is likely neoplastic in nature. Pulmonology suspects small-cell cancer. Nephrology and pulmonology continued to care for the patient. His sodium improved. Patient failed salt tablets. Patient was given medication Tolvaptan for his hyponatremia. His sodium improved. At discharge sodium remains 130. Patient was to have bronchoscopy done. This was not able to be performed during his stay. At discharge patient will go home and follow up with pulmonology to have outpatient bronchoscopy arranged. Patient will follow up with pulmonology in 1 week to set this up. Recommendation for the patient follow up with nephrology as an outpatient in 1-2 weeks to follow up this hospitalization. Recommendation to recheck BMP at that time to monitor his progress. Patient has COPD. Patient presented with COPD exacerbation. This improved during his stay. At discharge he will continue with prednisone 10 mg 1 pill twice daily for 5 days then 1 pill once daily for 5 days. At discharge patient will continue with Symbicort 2 puffs twice daily and Pro air 2 puffs 3 times a day as needed for shortness of breath. Recommendation for the patient follow up with pulmonology as an outpatient to further monitor. Patient has GERD. Patient continue with Protonix 40 mg 1 pill once daily. Patient with tobacco abuse. Cessation addressed in detail. Education provided. Patient admits THC use. THC cessation education provided. Patient with alcohol abuse. Cessation addressed in detail especially if the patient is to be treated in the future for possible lung cancer. Patient understands this. Patient will continue with cessation education. Patient will continue with thiamine 100 mg daily. Patient with malnutrition. Patient encouraged oral intake. This can be further addressed as an outpatient by his PCP. Vital Signs/Physical Exam: Temp Pulse Resp BP Pulse Ox 99.7 F 83 18 128/74 97 07/15/18 08:00 07/15/18 08:00 07/15/18 08:00 07/15/18 08:00 07/15/18 08:00 General: Alert, In no apparent distress, Oriented x3, Cooperative HEENT: Atraumatic, Mucous membr. moist/pink Neck: Supple, No Thyromegaly Respiratory: Clear to auscultation bilaterally, Normal air movement Cardiovascular: Normal pulses, Regular rate/rhythm Gastrointestinal: Normal bowel sounds, Soft and benign, Non-distended, No tenderness, No masses, No rebound, No guarding Musculoskeletal: No erythema, No tenderness, No warmth Integumentary: No tenderness/swelling, No erythema, No warmth, No cyanosis Neurological: Normal speech, Normal strength at 5/5 x4 extr, Normal tone, Normal affect Lymphatics: No axilla or inguinal lymphadenopathy Laboratory Data at Discharge: WBC 13.8 K/uL (4.3-10.9) H 07/14/18 05:22 Hgb 13.3 g/dL (13.6-17.9) L 07/14/18 05:22 Hct 38.2 % (39.6-49.0) L 07/14/18 05:22 Plt Count 211 K/uL (152-406) D 07/14/18 05:22 PT 12.0 SECONDS (9.5-12.5) 07/09/18 13:20 INR 1.02 07/09/18 13:20 Sodium 130 mmol/L (136-145) L 07/15/18 12:03 Potassium 4.0 mmol/L (3.5-5.1) 07/15/18 12:03 BUN 15 mg/dL (7-18) 07/15/18 12:03 Creatinine 0.70 mg/dL (0.55-1.3) 07/15/18 12:03 Glucose 145 mg/dL (74-106) H 07/15/18 12:03 Uric Acid 1.8 mg/dL (3.5-7.2) L 07/09/18 15:45 Phosphorus 4.1 mg/dL (2.5-4.9) D 07/14/18 05:22 Magnesium 1.9 mg/dL (1.8-2.4) 07/14/18 05:22 Total Bilirubin 0.4 mg/dL (0.2-1.0) 07/14/18 05:22 AST 20 U/L (15-37) 07/14/18 05:22 ALT 25 U/L (12-78) 07/14/18 05:22 Alkaline Phosphatase 52 U/L (45-117) 07/14/18 05:22 Lipase 179 U/L (73-393) 07/09/18 13:20 Home Medications: Albuterol Sulfate [Proair Hfa] 8.5 gm IH TID PRN #1 hfa.aer.ad 07/15/18 Budesonide/Formoterol Fumarate [Symbicort 160-4.5 Mcg Inhaler] 2 puff IH BID #1 hfa.aer.ad 07/15/18 Pantoprazole [Protonix Tab] 40 mg PO DAILY #30 tab 07/15/18 Thiamine HCl [Vitamin B-1*] 100 mg PO DAILY #90 tablet 07/15/18 predniSONE [Deltasone*] 10 mg PO SEECOM #15 tab 07/15/18 New Medications: Albuterol Sulfate [Proair Hfa] 8.5 gm IH TID PRN #1 hfa.aer.ad PRN Reason: Shortness Of Breath Budesonide/Formoterol Fumarate [Symbicort 160-4.5 Mcg Inhaler] 2 puff IH BID #1 hfa.aer.ad Pantoprazole [Protonix Tab] 40 mg PO DAILY #30 tab predniSONE [Deltasone*] 10 mg PO SEECOM #15 tab Thiamine HCl [Vitamin B-1*] 100 mg PO DAILY #90 tablet Patient Discharge Instructions: 1. Patient will need to follow up with PCP in 1 week to follow up this hospitalization. 2. Patient presented with bilateral lower extremity weakness. Patient found to be severely hypernatremic. 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 CT chest showed a 4.3 cm right hilar mass. This is likely neoplastic in nature. Pulmonology suspects small- cell cancer. Nephrology and pulmonology continued to care for the patient. His sodium improved. Patient failed salt tablets. Patient was given medication Tolvaptan for his hyponatremia. His sodium improved. At discharge sodium remains 130. Patient was to have bronchoscopy done. This was not able to be performed during his stay. At discharge patient will go home and follow up with pulmonology to have outpatient bronchoscopy arranged. Patient will follow up with pulmonology in 1 week to set this up. Recommendation for the patient follow up with nephrology as an outpatient in 1-2 weeks to follow up this hospitalization. Recommendation to recheck BMP at that time to monitor his progress. 3. Patient has COPD. Patient presented with COPD exacerbation. This improved during his stay. At discharge he will continue with prednisone 10 mg 1 pill twice daily for 5 days then 1 pill once daily for 5 days. At discharge patient will continue with Symbicort 2 puffs twice daily and Pro air 2 puffs 3 times a day as needed for shortness of breath. Recommendation for the patient follow up with pulmonology as an outpatient to further monitor. 4. Patient has GERD. Patient continue with Protonix 40 mg 1 pill once daily. 5. Patient with tobacco abuse. Cessation addressed in detail. Education provided. 6. Patient admits THC use. THC cessation education provided. 7. Patient with alcohol abuse. Cessation addressed in detail especially if the patient is to be treated in the future for possible lung cancer. Patient understands this. Patient will continue with cessation education. Patient will continue with thiamine 100 mg daily. 8. Patient with malnutrition. Patient encouraged oral intake. This can be further addressed as an outpatient by his PCP. Diet: Regular Activity: Fall precautions Followup: Luda Kendall DO, DO [Primary Care Provider] - Time spent managing pt's care (in minutes): 55
[2018-07-15 13:31] VITALS: BP 154/84; TEMP 99.9
[2018-07-15 15:19] LABS: Urine Appearance CLEAR; Urine Bilirubin NEGATIVE (NEG); Urine Blood NEGATIVE (NEG); Urine Color YELLOW; Urine Glucose NEGATIVE (NEG); Urine Protein NEGATIVE (NEG); Urine Urobilinogen 0.2 mg/dL (0.2-1.0)
[2018-07-15 15:24] LABS: Urine Microscopic Reflex NO UMIC
--- NOTE | 2018-07-15 16:43 | PN ---
Date of Progress Note: 07/15/2018 History: The patient was admitted with weakness, severe hyponatremia, found to have SIADH/recent osm osis state secondary to nonsteroidal/paraneoplastic. Physical Examination: Vital Signs: When I saw the patient blood pressure 128/74, pulse of 83. Afebrile. Chest: Clear to auscultation. Heart: S1, S2. Regular. Abdomen: Soft. Nontender. Extremity: No edema. Laboratory Data: H and H 13.3/38.2. Sodium 130, potassium 3.6, bicarb 24, BUN 14, creatinine 0.6. Calcium 8.3. Medications: Current medications the patient on its include: 1.Lovenox. 2.Hydralazine. 3.Tylenol. 4.Benzocaine breathing treatment. 5.Folic acid. 6.Prednisone. 7.Thiamin. Assessment And Plan: 1.Hyponatremia secondary to syndrome of inappropriate secretion of antidiuretic hormone/recent osmos is secondary to nonsteroidal status post tolvaptan, currently polyuric. His polyuria started improvi ng given the fact that his sodium has slightly dropped. Discontinue D5. We will repeat lab in 4 rom rs. If sodium continues to improve at that time, the patient okay to be discharged to follow up in the office in 2 weeks. 2.Lung mass. Follow up with Pulmonary. LEIF/BRIAN Voice ID: [id number] Report ID: [id number]
== END 2018-07-15 16:22 | disposition home health service (06) | DRG 644 ==
LOC: ER 11:17 → ERHOLD 13:18 → 3RD-ICU 16:05 → OBSVTOIN 18:12 → 4TH 07-13 22:05
PROVIDERS: ADMIT Family Medicine; ATTEND Family Medicine
DX: E22.2 Syndrome of inappropriate secretion of antidiuretic hormone (principal); J44.1 Chronic obstructive pulmonary disease with (acute) exacerbation; C34.01 Malignant neoplasm of right main bronchus; E46 Unspecified protein-calorie malnutrition; E83.42 Hypomagnesemia; F10.10 Alcohol abuse, uncomplicated; F12.10 Cannabis abuse, uncomplicated; F17.210 Nicotine dependence, cigarettes, uncomplicated; E16.0 Drug-induced hypoglycemia without coma; T38.0X5A Adverse effect of glucocorticoids and synthetic analogues, initial encounter; Y92.019 Unspecified place in single-family (private) house as the place of occurrence of the external cause; K21.9 Gastro-esophageal reflux disease without esophagitis; Z88.5 Allergy status to narcotic agent; I10 Essential (primary) hypertension; E83.51 Hypocalcemia
CPT/HCPCS: 36415; 70450; 70551; 71045; 71260; 80048; 80053; 80076; 80307; 80320; 81003; 81015; 82024; 82533; 82805; 82962; 83036; 83605; 83690; 83735; 83880; 83935; 84100; 84132; 84145; 84300; 84443; 84484; 84550; 85025; 85610; 87040; 87086; 87088; 93005; 94640; 94760; 96365; 96375; 97163; 99285; G0008; J0360; J0610; J0834; J1650; J2370; J3411; J3420; J3475; J7030; J7512; J7605; Q2035; Q9967

== ENCOUNTER 2018-07-25 10:58 | Day surgery (SDC) | payer OTHER ==
--- OUTSIDE RECORDS SUMMARY | 2018-07-25 11:02 | XMS REPORT | Clinical Summary ---
:1960 Author Organization [facility] Address [address] [place] [address] Care Team Providers Name Role Phone Huey Kendall Katia Primary Care Provider Allergies Active Allergy Reactions Severity Noted Date Comments Codeine Nausea And Vomiting High 06/13/2016 Medications Medication Sig Dispensed Refills Start Date End Date Status LIPASE/PROTEASE/AMYLA Take by mouth 4 0 Active SE (CREON ORAL) (four) times daily after meals and nightly. wnxege-gxiueibu-cojty Take 2 capsules 30 capsule 1 06/20/2016 [...] Not on file Implants Implanted Type Area Sludge Control Attendant Device Shelf Model / Identifier Expiration Serial / Date Lot Tiss Live Kt Lyo Thrombin 8ml 2993 - [id number] Cement/Fi N/A: Spine J &J: ETHICON 11/06/2017 [id number] / Implanted: Qty: 2 on 06/14/2016 by Chilo Diaz MD ller/Adhe Cervical / sive [id number] Set Scr M6 [id number] - [id number] Spine N/A: Spine MEDTRONIC:SPINA [id number] / Implanted: Qty: 6 on 06/14/2016 by Chilo Diaz MD Cervical L BIOLOGICS / Scr Vertex 14mm [id number] - [id number] Spine N/A: Spine MEDTRONIC:SPINA [id number] / Implanted: Qty: 4 on 06/14/2016 by Chilo Diaz MD Cervical L BIOLOGICS / Scr Multiaxial 3.5x16mm [id number] - [id number] Spine N/A: Spine MEDTRONIC: SPINA [id number] / Implanted: Qty: 2 on 06/14/2016 by Chilo Diaz MD Cervical L BIOLOGICS / Alonzo Precut 3.5x40mm [id number] - [id number] Spine N/A: Spine MEDTRONIC:SPINA [id number] / Implanted: Qty: 2 on 06/14/2016 by Chilo Diaz MD Cervical L BIOLOGICS / Orthoblend Small N/A: Spine MEDTRONIC 02/21/2018 [id number] / Implanted: Qty: 1 on 06/14/2016 by Chilo Diaz MD Cervical [id number] / Results Not on fileafter 07/24/2017 Insurance Payer Benefit Plan / Group Subscriber ID Type Phone Address [facility] xxxxxxxxxxx PPO ([place]) [place] [address] Advance Directives For more information, please contact:[address] [phone] Code Status Date Activated Date Inactivated Comments Full Code 06/13/2016 11:47 PM 06/20/2016 8:18 PM This code status was determined by: Patient
[2018-07-25] MEDS ORDERED: Ringers Lactate 1,000 ML IV ONE (11:18)
[2018-07-25] MEDS ORDERED: GLYCOPYRROLATE 0.2 MG/ML SYR ONE (11:20)
[2018-07-25] MEDS ORDERED: LIDOCAINE VISCOUS 2% SOLN 15 ML UDC ONE (11:20)
[2018-07-25] MEDS ORDERED: LIDOCAINE 1% MPF 30 ML VIAL ONE (11:20)
[2018-07-25] MEDS: LIDOCAINE 4% TOP SOLUTION ONE ×2 (11:45→12:05)
[2018-07-25] MEDS: Phenylephrine HCl 10 MG/ML 1 ML VIAL ONE ×2 (11:56→12:05)
[2018-07-25] MEDS ORDERED: PROPOFOL 200 MG/20 ML VIAL IV ONE (12:19)
[2018-07-25] MEDS ORDERED: LIDOCAINE 1% MPF 5 ML VIAL ONE (12:19)
[2018-07-25] MEDS ORDERED: FENTANYL CITR 100 MCG/2 ML ONE (12:20)
[2018-07-25] MEDS ORDERED: MIDAZOLAM HCL 2 MG/2 ML INJ ONE (12:20)
--- NOTE | 2018-07-25 12:37 | P.OP ---
Date of Service: 07/25/18 (Bronchoscopy with right lower lobe biopsy wire brushing and a BAL) Findings and Operative Technique The patient is 58 years of age admitted to the hospital with a right lung mass and hyponatremia heavy smoker hence schedule for a biopsy After obtaining informed consent from the patient he was premedicated by anesthesia Findings normal vocal cords normal trachea normal lorena normal left-sided bronchial anatomy the right upper lobe, middle lobe were all normal the right lower lobe posterior segmental bronchi were occluded 90% normal mucosa multiple biopsies wire brushings were obtained patient tolerated the procedure very well did not experience any hypertension arrhythmia
--- NOTE | 2018-07-25 13:00 | RAD REPORT ---
EXAM DESCRIPTION: RAD - FLUORO-GUIDE FOR BRONCH [id number] - 07/25/2018 12:55 pm CLINICAL HISTORY: BRONCHOSCOPY COMPARISON: No comparisons FINDINGS: Fluoroscopic imaging is submitted from right lung bronchoscopy procedure. Details of the p rocedure not available. Total images acquired: 4. Total fluoro time: 0.36 minutes.
--- NOTE | 2018-07-25 14:17 | RAD REPORT ---
EXAM DESCRIPTION: RAD - Chest Single View - 07/25/2018 2:12 pm CLINICAL HISTORY: POST BRONCHOSCOPY Chest pain. COMPARISON: Chest Single View dated 07/09/2018; Chest Single View dated 06/10/2016; Chest Single View dated 06/09/2016; Chest Single View dated 04/03/2016 FINDINGS: Portable technique limits examination quality. Right hilar soft tissue mass is again noted. No postprocedure pneumothorax seen. The heart is normal in size. No displaced fractures. IMPRESSION: No postprocedure pneumothorax seen.
[2018-07-25 14:47] VITALS: BP 174/93; TEMP 97.3; O2SAT 98
== END 2018-07-25 14:43 | disposition home or self-care (01) ==
LOC: OR 10:58
PROVIDERS: ATTEND Internal Medicine Sleep Medicine
PROC: 0B9F8ZX Drainage of Right Lower Lung Lobe, Via Natural or Artificial Opening Endoscopic, Diagnostic (ICD-10-PCS; 2018-07-25)
PROC: 0BB68ZX Excision of Right Lower Lobe Bronchus, Via Natural or Artificial Opening Endoscopic, Diagnostic (ICD-10-PCS; principal; 2018-07-25 12:00)
DX: C34.31 Malignant neoplasm of lower lobe, right bronchus or lung (principal); E22.1 Hyperprolactinemia; J44.9 Chronic obstructive pulmonary disease, unspecified; E87.1 Hypo-osmolality and hyponatremia; F17.200 Nicotine dependence, unspecified, uncomplicated; Z88.6 Allergy status to analgesic agent; Z80.1 Family history of malignant neoplasm of trachea, bronchus and lung; Z82.49 Family history of ischemic heart disease and other diseases of the circulatory system; Z83.3 Family history of diabetes mellitus
CPT/HCPCS: 71045; 76000; 87015; 87102; 87116; 87206; 88108; 88160; 88305; J2250; J2370; J2704; J3010

== ENCOUNTER 2018-07-26 23:26 | Inpatient (IN) | payer OTHER ==
--- OUTSIDE RECORDS SUMMARY | 2018-07-26 23:28 | XMS REPORT | Clinical Summary ---
:1960 Author Organization [facility] Address [address] [place] [address] Care Team Providers Name Role Phone Huey Kendall Katia Primary Care Provider Allergies Active Allergy Reactions Severity Noted Date Comments Codeine Nausea And Vomiting High 06/13/2016 Medications Medication Sig Dispensed Refills Start Date End Date Status LIPASE/PROTEASE/AMYLA Take by mouth 4 0 Active SE (CREON ORAL) (four) times daily after meals and nightly. zywzba-uxulpozm-jqiei Take 2 capsules 30 capsule 1 06/20/2016 [...] Not on file Implants Implanted Type Area Beaver Trapper Device Shelf Model / Identifier Expiration Serial / Date Lot Tiss Live Kt Lyo Thrombin 8ml 2993 - [id number] Cement/Fi N/A: Spine J &J: ETHICON 11/06/2017 2993 / Implanted: Qty: 2 on 06/14/2016 by Chilo Diaz MD ller/Adhe Cervical / sive [id number] Set Scr M6 [id number] - [id number] Spine N/A: Spine MEDTRONIC:SPINA [id number] / Implanted: Qty: 6 on 06/14/2016 by Chilo Diaz MD Cervical L BIOLOGICS / Scr Vertex 14mm [id number] - [id number] Spine N/A: Spine MEDTRONIC:SPINA [id number] / Implanted: Qty: 4 on 06/14/2016 by Chilo Diaz MD Cervical L BIOLOGICS / Scr Multiaxial 3.5x16mm [id number] - [id number] Spine N/A: Spine MEDTRONIC: SPINA [id number] / Implanted: Qty: 2 on 06/14/2016 by Chilo Diaz MD Cervical L BIOLOGICS / Alonzo Precut 3.5x40mm [id number] - [id number] Spine N/A: Spine MEDTRONIC:SPINA [id number] / Implanted: Qty: 2 on 06/14/2016 by Chilo Diaz MD Cervical L BIOLOGICS / Orthoblend Small N/A: Spine MEDTRONIC 02/21/2018 [id number] / Implanted: Qty: 1 on 06/14/2016 by Chilo Diaz MD Cervical [id number] / Results Not on fileafter 07/25/2017 Insurance Payer Benefit Plan / Group Subscriber ID Type Phone Address [facility] xxxxxxxxxxx PPO ([place]) [place] [address] Advance Directives For more information, please contact:[address] [phone] Code Status Date Activated Date Inactivated Comments Full Code 06/13/2016 11:47 PM 06/20/2016 8:18 PM This code status was determined by: Patient
[2018-07-27] MEDS ORDERED: NA CHLORIDE 0.9% 500 ML ONE (00:34)
[2018-07-27] MEDS ORDERED: ONDANSETRON 4 MG/2 ML VIAL ONE (00:42)
[2018-07-27] MEDS ORDERED: NA CHLORIDE 0.9% 1,000 ML ONE ×2 (00:43→06:19)
[2018-07-27 00:56] LABS: Absolute Lymphocytes (CBC) 1.8 K/uL (0.7-4.9); Absolute Monocytes 0.7 K/uL (0.1-1.3); Absolute Neutrophil 3.4 K/uL (1.8-8.0); Eosinophils % 2.4 % (0-4.4); Hematocrit 35.2 % (39.6-49.0); Lymphocytes % 29.1 % (15.3-44.8); MCH 32.5 pg (27.0-35.0); MCV 91.9 fL (80-100); MPV 8.1 fL (7.6-11.3); Monocytes % 11.9 % (3.3-12.3); RBC Red Blood Cell Count 3.83 M/uL (4.33-5.43)
[2018-07-27 00:57] LABS: Protime INR 1.04
[2018-07-27 01:19] LABS: ALT/SGPT 30 U/L (12-78); AST/SGOT 59 U/L (15-37); Albumin 3.1 g/dL (3.4-5.0); Alkaline Phosphatase 56 U/L (45-117); BUN Blood Urea Nitrogen 4 mg/dL (7-18); Bicarbonate 25 mmol/L (21-32); Bilirubin Direct 0.1 mg/dL (0-0.2); Bilirubin Total 0.4 mg/dL (0.2-1.0); Glucose Level 83 mg/dL (74-106); Magnesium 1.5 mg/dL (1.8-2.4); NT PRO-BNP 586 pg/mL (<125); Potassium 4.1 mmol/L (3.5-5.1); Protein, Total 6.5 g/dL (6.4-8.2); Troponin (Emerg Dept Use Only) < 0.02 ng/mL (0.0-0.045)
[2018-07-27 01:34] LABS: Sodium Level 115 mmol/L (136-145)
--- NOTE | 2018-07-27 02:03 | EDPHYS ---
Physician Documentation [facility] Name: Anuj Madrigal Jr Age: 58 yrs Sex: Male : 1960 Arrival Date: 07/26/2018 Time: 23:37 Bed 7 Private MD: Luda Kendall H ED Physician Hiram Tubbs HPI: 07/27 01:46 This 58 yrs old Male presents to ER via Ambulatory with complaints of pkl Weakness. 01:46 Onset: The symptoms/episode began/occurred today. Patient was admitted to this hospital pkl 2 weeks ago. Diagnosed with mass in right lung and hyponatremia.. Historical: - Allergies: 07/26 23:52 Codeine; ao - Home Meds: 23:52 Advair Diskus Inhl [Active]; Creon Oral [Active]; Protonix 40 mg Oral TbEC 1 tab once ao daily [Active]; prednisone Oral [Active]; - PMHx: 23:52 Back pain; COPD; Pancreatitis; lung ca; Diverticulitis; ao - PSHx: 23:52 Bowel resection; ao - Immunization history:: Adult Immunizations up to date. - Social history:: Smoking status: Patient/guardian denies using tobacco, Patient/guardian denies using alcohol, street drugs. - Ebola Screening: : Patient negative for fever greater than or equal to 101.5 degrees Fahrenheit, and additional compatible Ebola Virus Disease symptoms Patient denies exposure to infectious person Patient denies travel to an Ebola-affected area in the 21 days before illness onset. ROS: 07/27 01:46 Eyes: Negative for injury, pain, redness, and discharge, ENT: Negative for injury, pkl pain, and discharge, Neck: Negative for injury, pain, and swelling, Cardiovascular: Negative for chest pain, palpitations, and edema, Respiratory: Negative for shortness of breath, cough, wheezing, and pleuritic chest pain. Abdomen/GI: Positive for nausea. Back: Negative for acute changes. : Negative for urinary symptoms. MS/extremity: Negative for acute changes. Skin: Negative for rash. Neuro: Negative for altered mental status. Exam: 01:46 Head/Face: Normocephalic, atraumatic. Eyes: Pupils equal round and reactive to light, pkl extra-ocular motions intact. Lids and lashes normal. Conjunctiva and sclera are non-icteric and not injected. Cornea within normal limits. Periorbital areas with no swelling, redness, or edema. ENT: Nares patent. No nasal discharge, no septal abnormalities noted. Tympanic membranes are normal and external auditory canals are clear. Oropharynx with no redness, swelling, or masses, exudates, or evidence of obstruction, uvula midline. Mucous membranes moist. Neck: Trachea midline, no thyromegaly or masses palpated, and no cervical lymphadenopathy. Supple, full range of motion without nuchal rigidity, or vertebral point tenderness. No Meningismus. Chest/axilla: Normal chest wall appearance and motion. Nontender with no deformity. No lesions are appreciated. Cardiovascular: Regular rate and rhythm with a normal S1 and S2. No gallops, murmurs, or rubs. Normal PMI, no JVD. No pulse deficits. Respiratory: Lungs have equal breath sounds bilaterally, clear to auscultation and percussion. No rales, rhonchi or wheezes noted. No increased work of breathing, no retractions or nasal flaring. Abdomen/GI: Soft, non-tender, with normal bowel sounds. No distension or tympany. No guarding or rebound. No evidence of tenderness throughout. Back: No spinal tenderness. No costovertebral tenderness. Full range of motion. Skin: Warm, dry with normal turgor. Normal color with no rashes, no lesions, and no evidence of cellulitis. MS/ Extremity: Pulses equal, no cyanosis. Neurovascular intact. Full, normal range of motion. Neuro: Awake and alert, GCS 15, oriented to person, place, time, and situation. Cranial nerves II-XII grossly intact. Motor strength 5/5 in all extremities. Sensory grossly intact. Cerebellar exam normal. Normal gait. Vital Signs: 07/26 23:52 BP 130 / 82; Pulse 61; Resp 16; Temp 98.4(O); Pulse Ox 97% on R/A; Weight 58.97 kg; ao Height 5 ft. 9 in. (175.26 cm) (R); Pain 0/10; 07/27 01:01 BP 151 / 93; Pulse 52; Resp 18; Pulse Ox 100% ; ea 02:00 BP 135 / 82; Pulse 56; Resp 18; Pulse Ox 100% ; ea 03:00 BP 154 / 79; Pulse 53; Resp 18; Pulse Ox 99% on R/A; ea 07/26 23:52 Body Mass Index 19.20 (58.97 kg, 175.26 cm) ao NIH Stroke Scale Scores: 07/26 23:53 NIHSS Score: 0 ao MDM: 07/27 00:23 Patient medically screened. pkl 02:01 Data reviewed: vital signs, nurses notes, lab test result(s), EKG, radiologic studies, pkl plain films. 07/27 00:28 Order name: Basic Metabolic Panel pkl 07/27 00:28 Order name: CBC with Diff; Complete Time: 01:13 pkl 07/27 00:28 Order name: LFT's pkl 07/27 00:28 Order name: Magnesium pkl 07/27 00:28 Order name: NT PRO-BNP pk 07/27 00:28 Order name: PT-INR; Complete Time: 01:13 pkl 07/27 00:28 Order name: Troponin (emerg Dept Use Only) pk 07/27 00:28 Order name: XRAY Chest (1 view) pk 07/27 05:02 Order name: Glucose, Ancillary Testing EDMS 07/27 06:23 Order name: Osmolality, Serum EDMS 07/27 06:59 Order name: Urine Dipstick--Ancillary (enter results) 2 07/27 07:12 Order name: Urine Dipstick-Ancillary EDMS 07/27 00:28 Order name: EKG; Complete Time: 01:08 pkl 07/27 00:28 Order name: Cardiac monitoring; Complete Time: 00:46 pkl 07/27 00:28 Order name: EKG - Nurse/Tech; Complete Time: 00:57 pkl 07/27 00:28 Order name: IV Saline Lock; Complete Time: 00:31 pkl 07/27 00:28 Order name: Labs collected and sent; Complete Time: 00:38 pkl 07/27 00:28 Order name: O2 Per Protocol; Complete Time: 00:38 pkl 07/27 00:28 Order name: O2 Sat Monitoring; Complete Time: 00:38 pkl Administered Medications: 00:30 CANCELLED (Patient Refused): NS 0.9% 500 ml IV at bolus bolus pkl 00:31 Drug: NS 0.9% 500 ml Route: IV; Rate: bolus; Site: left antecubital; ea 00:38 Drug: NS 0.9% 1000 ml Route: IV; Rate: 100 ml/hr; Site: left antecubital; ea 00:38 Drug: Zofran 4 mg Route: IVP; Site: left antecubital; ea 00:57 Follow up: Response: No adverse reaction; Marked relief of symptoms ea Point of Care Testing: Blood Glucose: 07/26 23:55 Blood Glucose: 73 mg/dL; ao Ranges: Critical Glucose Levels:Adult <50 mg/dl or >400 mg/dl <40 mg/dl or >180 mg/dl Disposition: 07/27/18 02:02 Hospitalization ordered by Rafat Marshall for Inpatient Admission. Preliminary diagnosis is Hyponatremia. Mass right lung. S/P Biopsy. - Bed requested for Intensive Care Unit. - Status is Inpatient Admission. sg - Condition is Stable. - Problem is new. - Symptoms are unchanged. UTI on Admission? No NIH Stroke Scale - NIH Stroke Score Date: 07/26/2018 Time: 23:53 Total Score = 0 1a. Level of Consciousness (LOC) - 0(Alert) 1b. Level of Consciousness (LOC) (Year \T\ Age) - 0(Both) 1c. LOC Commands (Open \T\ Closes Eyes/Wad Blanking Press Adjuster) - 0(Both) 2. Best Gaze (Lateral Gaze Paresis) - 0(Normal) 3. Visual Field Loss - 0(No visual loss) 4. Facial Palsy - 0(Normal) 5a. Left Arm: Motor (10-second hold) - 0(No drift) 5b. Right Arm: Motor (10-second hold) - 0(No drift) 6a. Left Leg: Motor (5-second hold - always test supine) - 0(No drift) 6b. Right Leg: Motor (5-second hold - always test supine) - 0(No drift) 7. Limb Ataxia (finger/nose \T\ heel/galicia - test with eyes open) - 0(Absent) 8. Sensory Loss (pinprick arms/legs/face) - 0(Normal) 9. Best Language: Aphasia (description/naming/reading) - 0(No aphasia) 10. Dysarthria (speech clarity - read or repeat words) - 0(Normal) 11. Extinction and Inattention (visual/tactile/auditory/spatial/personal) - 0(No abnormality) Initials: ao Signatures: Dispatcher [employer] EDBren Schaffer RN Jose R Merrill RN Hiram Qiu MD MD pkl Ortiz, Alex, RN RN ao Antunez, Elena, RN RN ea Corrections: (The following items were deleted from the chart) 07/27 00:30 00:29 NS 0.9% 500 ml IV at bolus bolus ordered. pk pkl 04:38 02:02 Hospitalization Ordered by Rafat Marshall MD for Inpatient Admission. Preliminary diagnosis is Hyponatremia. Mass right lung. S/P Biopsy. Bed requested for Telemetry/MedSurg (Inpatient). Status is Inpatient Admission. Condition is Stable. Problem is new. Symptoms are unchanged. UTI on Admission? No. pkl 06:38 04:38 07/27/2018 02:02 Hospitalization Ordered by Rafat Marshall MD for Inpatient Admission. Preliminary diagnosis is Hyponatremia. Mass right lung. S/P Biopsy. Bed requested for [facility] ER HOLD. Status is Inpatient Admission. Condition is Stable. Problem is new. Symptoms are unchanged. UTI on Admission? No. kl 07:50 06:38 07/27/2018 02:02 Hospitalization Ordered by Rafat Marshall MD for Inpatient Admission. Preliminary diagnosis is Hyponatremia. Mass right lung. S/P Biopsy. Bed requested for Intensive Care Unit. Status is Inpatient Admission. Condition is Stable. Problem is new. Symptoms are unchanged. UTI on Admission? No. kl
--- NOTE | 2018-07-27 02:03 | ER ---
Nurse's Notes [facility] Name: Anuj Madrigal Jr Age: 58 yrs Sex: Male : 1960 Arrival Date: 07/26/2018 Time: 23:37 Bed 7 Private MD: Luda Kendall H Diagnosis: Hyponatremia. Mass right lung. S/P Biopsy Presentation: 07/26 23:46 Presenting complaint: Patient states: Weakness x one day. Patient also complains of ao nausea. Patient report was in the hospital two week ago with hyponatremia. Transition of care: patient was not received from another setting of care. No acute neurological deficit is noted. Pre-hospital glucose is not applicable to this patient. Onset of symptoms was July 26, 2018 at 09:00. Risk Assessment: Do you want to hurt yourself or someone else? Patient reports no desire to harm self or others. Initial Sepsis Screen: Does the patient meet any 2 criteria? No. Patient's initial sepsis screen is negative. Does the patient have a suspected source of infection? No. Patient's initial sepsis screen is negative. Care prior to arrival: None. 23:46 Method Of Arrival: Ambulatory ao 23:46 Acuity: QUENTIN 2 ao Triage Assessment: 23:56 The onset of the patients symptoms was July 26, 2018 at 09:00. General: Appears in ao no apparent distress. comfortable, Behavior is calm, cooperative, appropriate for age. 23:57 Neuro: Reports weakness in General. ao Stroke Activation: Physician: Stroke Attending; Name: Tubbs; Notified At: ; Arrived At: Physician: Chief Stroke Resident; Name: ; Notified At: ; Arrived At: Physician: Stroke Resident; Name: ; Notified At: ; Arrived At: Physician: ED Attending; Name: ; Notified At: ; Arrived At: Physician: ED Resident; Name: ; Notified At: ; Arrived At: Historical: - Allergies: 23:52 Codeine; ao - Home Meds: 23:52 Advair Diskus Inhl [Active]; Creon Oral [Active]; Protonix 40 mg Oral TbEC 1 tab once ao daily [Active]; prednisone Oral [Active]; - PMHx: 23:52 Back pain; COPD; Pancreatitis; lung ca; Diverticulitis; ao - PSHx: 23:52 Bowel resection; ao - Immunization history:: Adult Immunizations up to date. - Social history:: Smoking status: Patient/guardian denies using tobacco, Patient/guardian denies using alcohol, street drugs. - Ebola Screening: : Patient negative for fever greater than or equal to 101.5 degrees Fahrenheit, and additional compatible Ebola Virus Disease symptoms Patient denies exposure to infectious person Patient denies travel to an Ebola-affected area in the 21 days before illness onset. Screenin:56 Abuse screen: Denies threats or abuse. Denies injuries from another. Nutritional ao screening: No deficits noted. Tuberculosis screening: No symptoms or risk factors identified. Fall Risk None identified. Assessment: 23:53 General: Appears in no apparent distress. comfortable, Behavior is calm, cooperative, ao appropriate for age. Pain: Denies pain. Neuro: Level of Consciousness is awake, alert, obeys commands, Oriented to person, place, time, situation, Appropriate for age Moves all extremities. Full function Speech is normal, Facial symmetry appears normal. Cardiovascular: Capillary refill < 3 seconds Patient's skin is warm and dry. Respiratory: Airway is patent Respiratory effort is even, unlabored, Respiratory pattern is regular, symmetrical. GI: Abdomen is flat, non-distended. : No signs and/or symptoms were reported regarding the genitourinary system. EENT: No signs and/or symptoms were reported regarding the EENT system. Derm: Skin is pale, Skin temperature is warm. Musculoskeletal: Circulation, motion, and sensation intact. Range of motion: intact in all extremities. 23:55 The patient has not been NPO before screening. The patient is alert, and able to follow ao commands. The patient does not exhibit slurred or garbled speech. The patient is not exhibiting difficulty speaking. The patient does not exhibit difficulty understanding words. The patient is able to swallow own secretions with no drooling or need for suction. Patient tolerated one teaspoon of water. No drooling, immediate coughing, gurgling, or clearing of the throat was noted. The patient tolerated 90mL of water. No drooling, immediate coughing, gurgling, or clearing of the throat was noted. The patient passed the bedside swallow screening. Oral medications may be given as ordered. Contact Physician for further diet orders. Provider notified of bedside swallow screening results: Mika English RN. 07/27 00:59 Reassessment: Patient and/or family updated on plan of care and expected duration. Pain ea level reassessed. Pt resting with eyes closed, respirations even and unlabored, chest expansions even and symmetrical. No s/s of pain or discomfort noted at this time. 01:48 Reassessment: Patient appears in no apparent distress at this time. Patient and/or ao family updated on plan of care and expected duration. Pain level reassessed. Patient sleeping at this moment. Patient in no apparent distress. Waiting on Dispo orders. 01:50 T-PA (Activase) Screening: Contraindications: Other: Negative for stoke. ao 02:18 Reassessment: [phone] Spouse Sonia. ao 03:10 Reassessment: Patient and/or family updated on plan of care and expected duration. Pain ea level reassessed. Pt resting with eyes closed, respirations even and unlabored. Chest expansions even and symmetrical. No s/s of pain or discomfort noted at this time. 07:10 Reassessment: Patient appears in no apparent distress at this time. Patient and/or hb family updated on plan of care and expected duration. Pain level reassessed. Patient is alert, oriented x 3, equal unlabored respirations, skin warm/dry/pink. Vital Signs: 07/26 23:52 BP 130 / 82; Pulse 61; Resp 16; Temp 98.4(O); Pulse Ox 97% on R/A; Weight 58.97 kg; ao Height 5 ft. 9 in. (175.26 cm) (R); Pain 0/10; 07/27 01:01 BP 151 / 93; Pulse 52; Resp 18; Pulse Ox 100% ; ea 02:00 BP 135 / 82; Pulse 56; Resp 18; Pulse Ox 100% ; ea 03:00 BP 154 / 79; Pulse 53; Resp 18; Pulse Ox 99% on R/A; ea 07/26 23:52 Body Mass Index 19.20 (58.97 kg, 175.26 cm) ao NIH Stroke Scale Scores: 07/26 23:53 NIHSS Score: 0 ao ED Course: 23:37 Patient arrived in ED. es 23:37 Luda Kendall DO is Private Physician. es 23:46 Mika English, RN is Primary Nurse. ao 23:49 Triage completed. ao 23:53 Arm band placed on right wrist. Patient placed in an exam room, on a stretcher, on ao gambling monitor, on pulse oximetry, Patient notified of wait time. 23:56 Patient has correct armband on for positive identification. youth nutritional monitor on. Pulse ao ox on. NIBP on. 07/27 00:00 Inserted saline lock: 20 gauge in left forearm, using aseptic technique. Blood ea collected. 00:23 Hiram Tubbs MD is Attending Physician. pkl 00:41 X-ray completed. Portable x-ray completed in exam room. Patient tolerated procedure sg4 well. 01:09 XRAY Chest (1 view) In Process Unspecified. EDMS 02:01 Rafat Marshall MD is Hospitalizing Provider. pkl 03:13 No provider procedures requiring assistance completed. Patient admitted, IV remains in ea place. Administered Medications: 00:30 CANCELLED (Patient Refused): NS 0.9% 500 ml IV at bolus bolus pkl 00:31 Drug: NS 0.9% 500 ml Route: IV; Rate: bolus; Site: left antecubital; ea 00:38 Drug: NS 0.9% 1000 ml Route: IV; Rate: 100 ml/hr; Site: left antecubital; ea 00:38 Drug: Zofran 4 mg Route: IVP; Site: left antecubital; ea 00:57 Follow up: Response: No adverse reaction; Marked relief of symptoms ea Point of Care Testing: Blood Glucose: 07/26 23:55 Blood Glucose: 73 mg/dL; ao Ranges: Outcome: 07/27 02:02 Decision to Hospitalize by Provider. pkl 05:31 Admitted to ER Hold. Please see [facility] for further documentation. ao 05:31 Condition: stable 05:31 Instructed on the need for admit. 07:50 Patient left the ED. sg NIH Stroke Scale - NIH Stroke Score Date: 07/26/2018 Time: 23:53 Total Score = 0 1a. Level of Consciousness (LOC) - 0(Alert) 1b. Level of Consciousness (LOC) (Year \T\ Age) - 0(Both) 1c. LOC Commands (Open \T\ Closes Eyes/Fabric Worker) - 0(Both) 2. Best Gaze (Lateral Gaze Paresis) - 0(Normal) 3. Visual Field Loss - 0(No visual loss) 4. Facial Palsy - 0(Normal) 5a. Left Arm: Motor (10-second hold) - 0(No drift) 5b. Right Arm: Motor (10-second hold) - 0(No drift) 6a. Left Leg: Motor (5-second hold - always test supine) - 0(No drift) 6b. Right Leg: Motor (5-second hold - always test supine) - 0(No drift) 7. Limb Ataxia (finger/nose \T\ heel/galicia - test with eyes open) - 0(Absent) 8. Sensory Loss (pinprick arms/legs/face) - 0(Normal) 9. Best Language: Aphasia (description/naming/reading) - 0(No aphasia) 10. Dysarthria (speech clarity - read or repeat words) - 0(Normal) 11. Extinction and Inattention (visual/tactile/auditory/spatial/personal) - 0(No abnormality) Initials: ao Signatures: Dispatcher [employer] Jose R Garcia RN RN sg Lam, Pin, MD MD pkl Salyer, Edna es Ortiz, Alex, RN RN ao Baxter, Heather RN Laura Ariza RN RN ea Garcia, Susana sg4
[2018-07-27] MEDS ORDERED: NA CHLORIDE 0.9% 1,000 ML IV SCH (04:08)
--- NOTE | 2018-07-27 05:49 | EKG ---
Test Date: 2018-07-27 Test Time: 00:54:33 Statistics Professor: TERESA MEASUREMENT RESULTS: Intervals: Rate: 53 HI: 158 QRSD: 96 QT: 482 QTc: 452 [place]: P: 55 HI: 158 QRS: 69 T: 65 INTERPRETIVE STATEMENTS: Sinus bradycardia Possible Left atrial enlargement Borderline ECG Compared to ECG 07/09/2018 12:01:58 ST (T wave) deviation no longer present Electronically Signed On 07-27-18 05:48:42 RESEARCH ASSOCIATE by Jack Rosario
[2018-07-27] MEDS ORDERED: Magnesium Sulfate 2gm IVPB 2 G/50 ML BAG IV ONE ×2 (06:31→06:56)
[2018-07-27 07:11] LABS: Urine Blood NEGATIVE (NEG); Urine Glucose NEGATIVE (NEG); Urine Protein NEGATIVE (NEG); Urine Specific Gravity 1.015 (1.005-1.030); Urine pH 8.5 (5.0-7.0)
[2018-07-27] MEDS ORDERED: INFLUENZA VACCINE (for 3y+) 0.5 ML DOSE IMVAC ONE (08:00)
[2018-07-27] MEDS ORDERED: PNEUMOCOCCAL VACCINE 0.5 ML IMVAC ONE (08:00)
[2018-07-27] MEDS: ACETAMINOPHEN 500 MG TAB PO PRN ×4 (08:05→21:20)
[2018-07-27] MEDS: THIAMINE 200 MG/2 ML INJ IVP SCH (09:57)
[2018-07-27] MEDS: NA CHLORIDE 0.9% 1,000 ML IV SCH ×2 (09:57→16:05)
[2018-07-27 10:49] LABS: BUN Blood Urea Nitrogen 6 mg/dL (7-18); Bicarbonate 22 mmol/L (21-32); Glucose Level 91 mg/dL (74-106); Magnesium 1.9 mg/dL (1.8-2.4); Phosphorus 3.1 mg/dL (2.5-4.9); Potassium 3.7 mmol/L (3.5-5.1)
[2018-07-27 10:52] LABS: Sodium Level 114 mmol/L (136-145)
[2018-07-27 10:54] LABS: Thyroid Stimulating Hormone 1.67 uIU/mL (0.360-3.740)
--- NOTE | 2018-07-27 11:25 | RAD REPORT ---
EXAM DESCRIPTION: RAD - Chest Single View - 07/27/2018 12:45 am CLINICAL HISTORY: weakness Chest pain. COMPARISON: No comparisonsChest Single View dated 07/25/2018; Chest Single View dated 07/09/2018; Ch est Single View dated 06/10/2016; Chest Single View dated 06/09/2016 FINDINGS: Portable technique limits examination quality. Emphysematous changes are noted with right hilar mass again seen. No pneumothorax. The heart is alonso l in size.
[2018-07-27] MEDS: SODIUM CHLORIDE 1 GM TAB PO SCH ×3 (12:47→20:19)
[2018-07-27 13:28] LABS: Barbiturates NEGATIVE (NEGATIVE); Benzodiazepines NEGATIVE (NEGATIVE); Cocaine NEGATIVE (NEGATIVE); METHAMPHETAM NEGATIVE (NEGATIVE); Methadone NEGATIVE (NEGATIVE); Opiates NEGATIVE (NEGATIVE); Phencyclidine NEGATIVE (NEGATIVE); THC Cannibis NEGATIVE (NEGATIVE)
[2018-07-27 13:53] LABS: Urine Appearance CLEAR; Urine Bilirubin NEGATIVE (NEG); Urine Blood NEGATIVE (NEG); Urine Color YELLOW; Urine Glucose NEGATIVE (NEG); Urine Protein NEGATIVE (NEG); Urine Urobilinogen 0.2 mg/dL (0.2-1.0); Urine pH 7.5 (5.0-7.0)
[2018-07-27 14:02] LABS: Urine Bacteria <20 /HPF (NONE SEEN); Urine Culture Reflex Order NOT NEEDED; Urine RBC NONE SEEN /HPF (NONE SEEN)
--- NOTE | 2018-07-27 15:23 | RAD REPORT ---
EXAM DESCRIPTION: US - Renal Ultrasound-Complete - 07/27/2018 3:11 pm CLINICAL HISTORY: hyponatremia COMPARISON: No comparisons FINDINGS: Both kidneys are normal in size, shape and echotexture. The right kidney measures 11.5 x 5.2 x 4.5 cm. No hydronephrosis, focal mass or perinephric fluid. The left kidney measures 11.8 x 5.8 x 5.4 cm. No hydronephrosis, focal mass or perinephric fluid. The urinary bladder is incompletely distended without gross abnormality seen. IMPRESSION: Unremarkable renal sonogram.
[2018-07-27] MEDS ORDERED: POTASSIUM CL SA 10 MEQ TAB PO ONE (16:00)
[2018-07-27] MEDS ORDERED: MAGNESIUM SULFATE 1 gm IVPB 1 GM/100 ML BAG IV ONE (16:00)
--- NOTE | 2018-07-27 16:22 | P.HP ---
Certification for Inpatient Patient admitted to: Inpatient With expected LOS: >2 Midnights Patient will require the following post-hospital care: None Practitioner: I am a practitioner with admitting privileges, knowledge of patient current condition, hospital course, and medical plan of care. Services: Services provided to patient in accordance with Admission requirements found in Title 42 Section 412.3 of the Code of Federal Regulations Patient History Date of Service: 07/27/18 History of Present Illness: This is a 58-year-old male with significant past medical history who presented to the ED complaining of having generalized weakness and was found to have hyponatremia. Patient was recently seen at the basket machine operator office for a mass on the right lung. Had a biopsy done and was suspicious for bronchogenic lung cancer. 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 Patient was doing well however started having some generalized weakness and thus decided to come to the ER and get a further checked out. Patient denies having any chest pain nausea vomiting abdominal pain or any other associated symptoms. Allergies codeine Adverse Reaction (Verified 07/25/18 12:09) Nausea/Vomiting hydromorphone Adverse Reaction (Verified 07/25/18 12:09) Nausea/Vomiting Home Medications: Albuterol Sulfate [Proair Hfa] 8.5 gm IH TID PRN #1 hfa.aer.ad 07/15/18 Budesonide/Formoterol Fumarate [Symbicort 160-4.5 Mcg Inhaler] 2 puff IH BID #1 hfa.aer.ad 07/15/18 Pantoprazole [Protonix Tab] 40 mg PO DAILY #30 tab 07/15/18 Thiamine HCl [Vitamin B-1*] 100 mg PO DAILY #90 tablet 07/15/18 Acetaminophen [Tylenol Extra Strength] 500 mg PO PRN PRN 07/25/18 - Past Medical/Surgical History Diabetic: No -: copd -: pancreatitis -: back pain -: Lung Cancer -: bowel resection w/colostomy 2010 -: rt foot fx-1970 -: revision of colostomy 2014 -: Neck surgery-laminectomy 2015 - Family History Mother -: Cancer Brother -: Hypertension, Diabetes Father -: Cancer Notes: father and mother both lung cancer - Social History Smoking Status: Never smoker Alcohol use: No CD- Drugs: No Caffeine use: No Review of Systems 10-point ROS is otherwise unremarkable Physical Examination - Vital Signs Temperature: 98.4 F Blood Pressure: 142/82 Pulse: 67 Respirations: 15 Pulse Ox (%): 100 - Physical Exam General: Alert, In no apparent distress HEENT: Atraumatic, PERRLA, Mucous membr. moist/pink, EOMI, Sclerae nonicteric Neck: Supple, 2+ carotid pulse no bruit, No LAD, Without JVD or thyroid abnormality Respiratory: Clear to auscultation bilaterally, Normal air movement Cardiovascular: Regular rate/rhythm, Normal S1 S2 Gastrointestinal: Normal bowel sounds, No tenderness Musculoskeletal: No tenderness Integumentary: No rashes Neurological: Normal gait, Normal speech, Normal strength at 5/5 x4 extr, Normal tone, Normal affect Lymphatics: No axilla or inguinal lymphadenopathy - Studies Laboratory Data (last 24 hrs) 07/27/18 00:12: PT 12.3, INR 1.04 07/27/18 00:12: WBC 6.2 D, Hgb 12.5 L, Hct 35.2 L, Plt Count 298 D 07/27/18 00:12: Sodium 115 L*, Potassium 4.1, BUN 4 L, Creatinine 0.60, Glucose 83, Magnesium 1.5 L, Total Bilirubin 0.4, AST 59 H, ALT 30, Alkaline Phosphatase 56 Assessment and Plan - Problems (Diagnosis) (1) Hyponatremia Current Visit: No Status: Acute Plan: Symptomatic hyponatremia with sodium of 115 on admission. Euvolemic hyponatremia most likely secondary to SIADH -nephrology consulted. Awaiting recommendations at this time -patient started on sodium tabs along with Demeclocycline -be cautious with normal saline as a could exacerbate his symptoms further. -will monitor closely for hypernatremia complications (2) Weakness Onset Date: 06/11/16 Current Visit: No Status: Acute Plan: Most likely secondary to low-sodium -PT consult at this time (3) Lung cancer Current Visit: No Status: Acute Plan: Right-sided lung mass with recent biopsy with a pulmonology -will follow up with biopsy results with pathology tomorrow -pulmonology consulted. Appreciated recommendations at this time Qualifiers: Laterality: right Lung location: unspecified part of lung Qualified Code( s): C34.91 - Malignant neoplasm of unspecified part of right bronchus or lung (4) HTN (hypertension) Current Visit: No Status: Chronic Qualifiers: Hypertension type: essential hypertension (5) COPD (chronic obstructive pulmonary disease) Current Visit: No Status: Chronic Qualifiers: COPD type: chronic bronchitis Chronic bronchitis type: mucopurulent Qualified Code(s): J41.1 - Mucopurulent chronic bronchitis (6) Carotid artery disease Current Visit: No Status: Chronic Qualifiers: Carotid artery disease type: stenosis Laterality: bilateral Qualified Code(s): I65.23 - Occlusion and stenosis of bilateral carotid arteries Discharge Plan: Home Plan to discharge in: Greater than 2 days - Advance Directives Does patient have a Living Will: No Does patient have a Durable POA for Healthcare: No - Code Status/Comfort Care Code Status Assessed: Yes Critical Care: Yes
[2018-07-27] MEDS ORDERED: DEMECLOCYCLINE HCL 300 MG PO SCH (21:00)
[2018-07-27] MEDS ORDERED: DEMECLOCYCLINE HCL 150 MG TABLET PO SCH (21:00)
[2018-07-27 21:08] LABS: BUN Blood Urea Nitrogen 6 mg/dL (7-18); Bicarbonate 21 mmol/L (21-32); Glucose Level 102 mg/dL (74-106); Potassium 4.3 mmol/L (3.5-5.1)
[2018-07-27 21:25] LABS: Sodium Level 117 mmol/L (136-145)
--- NOTE | 2018-07-27 23:16 | CON ---
Date of Consultation: 07/27/2018 Chief Complaint: Hyponatremia hypo-osmolar, SIADH. History Of Present Illness: The patient presented to the hospital because of generalized weakness. He was found to have severe hyponatremia. Sodium level was 115. The patient has history of SIADH and recently he was admitted to the hospital for similar symptoms. He was found to have lung cancer. He has been seen by worker's compensation claims examiner for bronchogenic lung cancer. On previous occasion, he was diagnosed with SIADH, was started on p.o. fluid restriction, and p.o. prednisone was used for COPD and bronchitis, although patient developed some altered mental status and confusion and 5 days ago he stopped taking prednisone as was recommended by his primary care physician. The patient although remains on albuterol inhaler and Symbicort. Review of Systems: Constitutional: The patient denies fever, chills. Eyes: Denies new vision changes. Ears, Nose, Mouth, and Throat: Denies sore throat, earache. Respiratory: Denies wheezing. Cardiovascular: Denies chest pain, palpitation. GI: Denies nausea, vomiting. : Denies dysuria, hematuria. Musculoskeletal: Denies muscle aches or joint swelling. All other systems reviewed and all are negative. Past Medical History: COPD, pancreatitis, chronic back pain, lung cancer, SIADH , bowel resection, colostomy 2010, right foot fracture 1970, revision of colostomy 2014, neck surgery laminectomy 2015. Family History: Mother cancer. Brother; hypertension, diabetes. Father cancer. Social History: Denies tobacco, alcohol, or illicit drugs. Physical Examination: Vital Signs: Temperature is 98.4, blood pressure 142/82, heart rate 67, respiratory rate 15, SpO2 100%. Eyes: Anicteric sclerae, EOMI. Ears, Nose, Mouth, and Throat: Oral mucosa moist. No pallor. Neck: Supple. No JVD. No bruits. Lungs: Clear to auscultation bilaterally. No wheezing. No rhonchi. Cardiovascular: S1, S2. No pericardial friction rub. Abdomen: Soft, benign, nontender. Musculoskeletal: No muscle tenderness, no joint effusion. Skin: Warm and dry. No skin rashes. Neurological: Moving extremities. Cranial nerves intact. Psychiatric: Alert, oriented x3. Normal affect. Laboratory Data: Sodium 116, potassium 4.1, chloride 82, CO2 25, BUN 4, creatinine 0.6, calcium 7.7, phosphorus is 3.1, magnesium 1.5. CK level 780. Serum total protein is 6.5, albumin 3.1. Cortisol level is 0.66. TSH level is 1.670. Urinalysis showed specific gravity 1.010, pH 7.5, rbc 9, wbc 9. Urine osmolality 319. Urine sodium 106, urine creatinine 37.0. Impression And Plan: 1. Hyponatremia hypo-osmolar consistent with syndrome of inappropriate antidiuretic hormone secretion. The patient needs workup to rule out adrenal insufficiency. Plan is to check TSH level. Continue p.o. fluid restriction. The patient will take sodium chloride tablet to control hyponatremia. Plan is to monitor electrolytes. Adjust treatment accordingly. 2. Lung cancer. Management by Pulmonary Service. 3. Hypomagnesemia. Magnesium replacement as needed. 4. Monitor phosphorus level. 5. Malnutrition. Increase p.o. protein intake. MARTINA/BRIAN Voice ID: [id number] Report ID: [id number]
[2018-07-28] MEDS: ACETAMINOPHEN 500 MG TAB PO PRN ×4 (03:30→21:33)
[2018-07-28 05:54] LABS: Absolute Lymphocytes (CBC) 1.5 K/uL (0.7-4.9); Absolute Monocytes 0.5 K/uL (0.1-1.3); Absolute Neutrophil 2.4 K/uL (1.8-8.0); Basophils % 1.4 % (0-1.3); Eosinophils % 2.8 % (0-4.4); Hematocrit 33.9 % (39.6-49.0); Lymphocytes % 32.1 % (15.3-44.8); MCH 32.6 pg (27.0-35.0); MCV 90.6 fL (80-100); MPV 7.8 fL (7.6-11.3); Monocytes % 10.9 % (3.3-12.3); RBC Red Blood Cell Count 3.74 M/uL (4.33-5.43)
[2018-07-28 06:02] LABS: BUN Blood Urea Nitrogen 5 mg/dL (7-18); Bicarbonate 22 mmol/L (21-32); Glucose Level 79 mg/dL (74-106); Potassium 4.1 mmol/L (3.5-5.1)
[2018-07-28 06:03] LABS: Sodium Level 116 mmol/L (136-145)
[2018-07-28 06:21] LABS: Magnesium 1.8 mg/dL (1.8-2.4)
[2018-07-28] MEDS ORDERED: MAGNESIUM SULFATE 1 gm IVPB 1 GM/100 ML BAG IV ONE (06:22)
[2018-07-28] MEDS: SODIUM CHLORIDE 1 GM TAB PO SCH ×6 (07:35→20:48)
[2018-07-28] MEDS ORDERED: SODIUM CHLORIDE 1 GM TAB PO SCH (08:00)
[2018-07-28] MEDS: PANTOPRAZOLE 40MG TABLET PO SCH (08:53)
[2018-07-28] MEDS: THIAMINE 200 MG/2 ML INJ IVP SCH (08:54)
[2018-07-28] MEDS ORDERED: FUROSEMIDE 20 MG TABLET PO SCH (09:00)
[2018-07-28] MEDS ORDERED: DEMECLOCYCLINE HCL 150 MG TABLET PO SCH ×2 (09:00→21:00)
[2018-07-28] MEDS: DEMECLOCYCLINE HCL 300 MG PO SCH ×2 (09:27→20:48)
--- NOTE | 2018-07-28 14:16 | P.PN ---
Subjective Date of Service: 07/28/18 Patient seen and examined at bedside with RN. Chart reviewed. Case discussed with pathology, pulmonology, nephrology at this time. No complaints to offer overnight Patient however does complain of having some generalized weakness and forgetfulness for past couple of days. Denies having any nausea vomiting or any other associated symptoms. Pathology report is pending at this time. Review of Systems 10-point ROS is otherwise unremarkable Physical Examination - Vital Signs Temperature: 98.5 F Blood Pressure: 150/78 Pulse: 63 Respirations: 12 Pulse Ox (%): 98 - Physical Exam General: Alert, In no apparent distress, Cachectic HEENT: Atraumatic, PERRLA, EOMI Neck: Supple, JVD not distended Respiratory: Clear to auscultation bilaterally, Normal air movement Cardiovascular: Regular rate/rhythm, Normal S1 S2 Gastrointestinal: Normal bowel sounds, No tenderness Musculoskeletal: No tenderness Integumentary: No rashes Neurological: Normal speech, Normal tone, Normal affect Lymphatics: No axilla or inguinal lymphadenopathy - Studies Medications List Reviewed: Yes Assessment And Plan - Current Problems (Diagnosis) (1) Hyponatremia Onset Date: 07/28/18 Current Visit: Yes Status: Acute Plan: Symptomatic hyponatremia with sodium of 115 on admission. Euvolemic hyponatremia most likely secondary to SIADH 2.2 to Small Cell CA -nephrology consulted. recommendations appreciate at this time -patient started Demeclocycline 300mg BID -be cautious with normal saline as it could exacerbate his symptoms further. -will monitor closely for hyponatremia complications (2) Weakness Onset Date: 06/11/16 Current Visit: No Status: Acute Plan: Most likely secondary to low-sodium -PT consult at this time (3) Lung cancer Onset Date: 07/28/18 Current Visit: Yes Status: Acute Plan: Right-sided lung mass with recent biopsy with a pulmonology. Path Report pending presumed small cell CA -will follow up with biopsy results with pathology -pulmonology consulted. Appreciated recommendations at this time -Oncology consulted. Reccs awaiting Qualifiers: Laterality: right Lung location: unspecified part of lung Qualified Code( s): C34.91 - Malignant neoplasm of unspecified part of right bronchus or lung (4) HTN (hypertension) Onset Date: 07/28/18 Current Visit: Yes Status: Chronic Qualifiers: Hypertension type: essential hypertension (5) COPD (chronic obstructive pulmonary disease) Onset Date: 07/28/18 Current Visit: Yes Status: Chronic Qualifiers: COPD type: chronic bronchitis Chronic bronchitis type: mucopurulent Qualified Code(s): J41.1 - Mucopurulent chronic bronchitis (6) Carotid artery disease Onset Date: 07/28/18 Current Visit: Yes Status: Chronic Qualifiers: Carotid artery disease type: stenosis Laterality: bilateral Qualified Code(s): I65.23 - Occlusion and stenosis of bilateral carotid arteries Discharge Plan: Home Plan to discharge in: 48 Hours - Code Status/Comfort Care Code Status Assessed: Yes Critical Care: Yes
[2018-07-28 15:53] LABS: BUN Blood Urea Nitrogen 7 mg/dL (7-18); Bicarbonate 24 mmol/L (21-32); Glucose Level 95 mg/dL (74-106); Potassium 4.1 mmol/L (3.5-5.1)
[2018-07-28 16:10] LABS: Sodium Level 117 mmol/L (136-145)
[2018-07-28] MEDS: ENOXAPARIN 40 MG/0.4 ML SQ SCH (18:02)
[2018-07-28] MEDS: ONDANSETRON 4 MG/2 ML VIAL IV PRN (19:54)
--- NOTE | 2018-07-28 21:26 | P.CNS ---
Date of Consult: 07/28/18 (Oncology) Reason for consultation: Right lung mass with SIADH HPI: This is a 58-year-old male with extensive smoking and alcohol abuse history presents with to the ED complaining of having generalized weakness, AMS leading to falls. He was found to be in severe hypontremia with Na level 115. He had a recent hospital admission on 07/09/18 with similar complaints when he was noted to have a right lung mass. His Na was improved and he was discharged for OP follow up with pulmonology. He underwent a bronchoscopy on 07/25/18. Pathology report is still pending immunostain confirmation though apparently appears suspicious for small cell lung cancer. Pt currently under close observation to improve hyponatremia with fluid restriction, demeclocycline and salt tablets. In the past 24 hours, Na improved to 117. Patient and his report improvement of s/s though still feels fatigued and weak. Stable appetite and reportedly has gained some weight since recent admission secondary to steroids. 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 Intermittent mild headaches and balance issues lately. Chronic alcoholic intake, about 6pk beer a day for more than 30 years, which might explain prior mild hyponatremia atleast since 2012. Extensive 40pk year smoking history, also quit 3 weeks ago. ROS: a 14 point ROS was done and pertinent points as in HPI - Past Medical/Surgical History -: copd -: pancreatitis -: back pain -: bowel resection w/colostomy 2010 -: rt foot fx-1970 -: revision of colostomy 2014 -: Neck surgery-laminectomy 2016 - Family History Mom and dad had lung cancer (smokers/ unknown age/ both ) - Social History: Lives with . Has one son. Unemployed. Physical exam: General Appearance: thin framed, alert, cooperative, appears in no distress. Skin, Hair & Nails: skin dry, unkempt hair and nails. Head: normocephalic, atraumatic. Eyes: anicteric, no injection of conjunctivae; + pallor Ears: grossly intact Nose: nares patent. Mouth/Throat: poor dentition and oral hygiene, no erythema, no exudate. Neck: neck supple, without lymphadenopathy, no engorged veins. Chest/Respiratory: No chest wall collaterals, swellings, good respiratory effort, clear to auscultation; no wheezing. Cardiovascular: regular rate and rhythm, no murmurs, no cyanosis. Abdomen: bowel sounds present and equal in all four quadrants, abdomen is soft, nontender, nondistended, no masses, no hepatosplenomegaly. Peripheral Vascular: no edema, no calf tenderness Musculoskeletal: normal gait and posture; Neurological: AAOx3; power 5/5 all extremities; NFND Lymph: no palpable supraclavicular, submental, cervical, axillary, inguinal LAD. Psych: good mood, insight and judgement Labs: Reviewed trend. Na 117 Bun/cr 7/0.6 wbc 4.5/ Hb 12.2/ Plt 285 Ca 7.6 uric acid 1.8 Albumin 3.1 Imagin07/09/18: CT Chest: 4.3cm right hilar mass encases RLL pulm artery and BI. 1cm AP window LN 07/09/18: MRI brain without contrast: No mass; A few scattered areas of abnormal T2 signals Problems/ recommendations: 1. Right lung mass with severe hyponatremia: Possible Small cell lung cancer causing paraneoplastic symptomatology due to SIADH. Final pathology report pending immunostain confirmation. -SIADH paraneoplastic syndrome may likely be controlled/ improved with treatment of underlying cancer. Once diagnosis is confirmed, he will need chemotherapy +/- radiation. - He will need to complete staging work up to r/o metastatic disease. *CT abdomen/ pelvis with contrast in the meantime to r/o metastatic disease. * MRI brain to be done with and without contrast to better evaluate the small abnormal T2 signals. Lung mass seems to be in close proximity to RLL pulmonary artery and bronchus intermedius. C/w close monitoring. No evidence of SVC syndrome. Further discussion on treatment scenarios, prognosis discussion pending path report and staging. Will also discuss with Radiation oncology for few fractions of XRT in the meantime if any delay in discharge. 2. SIADH: as per problem #1. Hyponatremia seems to be slowly improving. Closely monitor BMP q 6 hourly. Maintain fluid restriction. He is also on salt tablets and demeclocycline. ? role of tolvaptan. Follow up with Nephrology. Patient and his seem to be aware of the possibility of cancer. They did ask several meaningful questions and all concerns answered to their satisfaction. We will closely follow. He will follow up with Oncology on discharge once Sodium level is stabilized.
[2018-07-28 23:28] LABS: BUN Blood Urea Nitrogen 9 mg/dL (7-18); Bicarbonate 22 mmol/L (21-32); Glucose Level 79 mg/dL (74-106); Potassium 4.1 mmol/L (3.5-5.1); Sodium Level 123 mmol/L (136-145)
--- NOTE | 2018-07-29 03:27 | PN ---
Date of Progress Note: 07/28/2018 Chief Complaint: Hypoosmolar hyponatremia. Subjective: The patient previously was diagnosed with SIADH. He was discharged on p.o. prednisone. Apparently, he stopped taking prednisone 10 days ago because he developed hallucinations. Review of Systems: Denies fever, chills. Denies nausea, vomiting. Denies dysuria, hematuria. Physical Examination: Lungs: Clear to auscultation bilaterally. Heart: S1, S2. Abdomen: Soft, benign. Extremities: No edema. Impression And Plan: Hyponatremia, hypoosmolar; SIADH. Continue p.o. fluid restriction. Start sodi um chloride tablets to correct hyponatremia. Recommend to avoid diuretics. At this point, the patient is off IV fluids because of hyponatremia an d the patient is started on sodium chloride tablet. The patient is started on demeclocycline for CESILIA DH and hyponatremia. Monitor fluid balance and uric acid level. MARTINA/MODL Voice ID: [id number] Report ID: [id number]
[2018-07-29 06:05] LABS: BUN Blood Urea Nitrogen 7 mg/dL (7-18); Bicarbonate 25 mmol/L (21-32); Glucose Level 92 mg/dL (74-106); Magnesium 1.6 mg/dL (1.8-2.4); Potassium 4.2 mmol/L (3.5-5.1); Sodium Level 122 mmol/L (136-145)
[2018-07-29] MEDS ORDERED: MAGNESIUM SULFATE 1 gm IVPB 1 GM/100 ML BAG IV ONE ×2 (07:43→09:00)
[2018-07-29] MEDS: PANTOPRAZOLE 40MG TABLET PO SCH (08:15)
[2018-07-29] MEDS ORDERED: NA CHLORIDE 0.9% 250 ML ONE (08:52)
[2018-07-29] MEDS: THIAMINE 200 MG/2 ML INJ IVP SCH (10:29)
--- NOTE | 2018-07-29 11:58 | RAD REPORT ---
EXAM DESCRIPTION: CT - Head Brain W/Wo Con - 07/29/2018 11:34 am CLINICAL HISTORY: Lung cancer COMPARISON: July 09, 2018 TECHNIQUE: Computed axial tomography of the head was obtained. Unenhanced enhanced images obtained. 50 cc Isovue-[address] All [address] scans are performed using dose optimization technique as appropriate and may include automated exposure control or mA/KV adjustment according to patient size. FINDINGS: An intracranial bleed is not seen . The ventricles are normal in caliber. No extra-axial fluid collection is noted. No abnormal enhancement is seen. Fluid within the sinuses/ mastoids is not seen. IMPRESSION: No evidence metastatic disease
--- NOTE | 2018-07-29 12:04 | RAD REPORT ---
EXAM DESCRIPTION: CT - Abdomen Pelvis W Contrast - 07/29/2018 11:34 am CLINICAL HISTORY: Abdominal pain. COMPARISON: 2013 TECHNIQUE: Computed axial tomography of the abdomen and pelvis was obtained. 100 cc Isovue-300 is ad ministered intravenously. Oral contrast was given. All CT scans are performed using dose optimization technique as appropriate and may include automated exposure control or mA/KV adjustment according to patient size. FINDINGS: 17 millimeter low-density mass abutting the anterior aspect of the left lobe of the liver is without significant change likely benign. Liver is otherwise unremarkable Spleen, pancreas, adrenals and kidneys appear unremarkable. The appendix is normal caliber. There is no evidence of diverticulitis. Small duodenal diverticulum. The wall of the distal stomach appears thickened A moderate amount stool is present within the colon. Mild laxity of the anterior abdominal wall. IMPRESSION: Thickening of the wall of the distal stomach may indicate pathology such as inflammation or be second albino to incomplete distention. Moderate amount stool throughout the colon
[2018-07-29] MEDS: DEMECLOCYCLINE HCL 300 MG PO SCH ×2 (12:09→20:36)
[2018-07-29] MEDS: SODIUM CHLORIDE 1 GM TAB PO SCH ×2 (12:09→20:36)
[2018-07-29 12:41] LABS: BUN Blood Urea Nitrogen 6 mg/dL (7-18); Bicarbonate 21 mmol/L (21-32); Glucose Level 96 mg/dL (74-106); Potassium 4.3 mmol/L (3.5-5.1); Sodium Level 120 mmol/L (136-145)
--- NOTE | 2018-07-29 15:29 | P.PN ---
Subjective Date of Service: 07/29/18 Patient seen and examined at bedside with RN. Chart reviewed. Case discussed with Oncology, pulmonology, nephrology at this time. Patient this morning is having intermittent confusion and alter state of mind. According to the at bedside he is not the same as he was before. Does appear to have some changes in his mentation today. During the physical exam and question during rounds patient did appear to be lethargic and drowsy was able to stay up for certain question and was dozing off during the other questions. Several things have to be repeated several times to the patient. Overnight has remained afebrile and no other complaints to offer Review of Systems 10-point ROS is otherwise unremarkable Physical Examination - Vital Signs Temperature: 99.3 F Blood Pressure: 177/81 Pulse: 70 Respirations: 20 Pulse Ox (%): 98 - Physical Exam General: In no apparent distress, Oriented x2, Confused (Intermittent) HEENT: Atraumatic, PERRLA, EOMI Neck: Supple, JVD not distended Respiratory: Normal air movement, Crackles/rales, Expiratory wheezes, Inspiratory wheezes Cardiovascular: Regular rate/rhythm, Normal S1 S2 Gastrointestinal: Normal bowel sounds, No tenderness Musculoskeletal: No tenderness Integumentary: No rashes Neurological: Normal speech, Normal tone, Normal affect Lymphatics: No axilla or inguinal lymphadenopathy - Studies Medications List Reviewed: Yes Assessment And Plan - Current Problems (Diagnosis) (1) Hyponatremia Onset Date: 07/28/18 Current Visit: Yes Status: Acute Plan: Symptomatic hyponatremia with sodium of 115 on admission. 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 Today with alteration in his mental status intermittently. Sodium did come up to 123 and not to 120. Patient does have a history of chronic hyponatremia however his recent sodium was 133 on 07/15 after he was started on Conivaptan. -nephrology consulted. recommendations appreciate at this time -patient started Demeclocycline 300mg BID and fluid restriction -be cautious with normal saline as it could exacerbate his symptoms further. -will monitor closely for hyponatremia complications. -initially the plan was to discharge patient home and follow up with his hyponatremia along with treatment for his small-cell cancer outpatient however given the changes in his mentation today patient will need a MRI of the brain to evaluate for any acute abnormality. -will get MRI of the brain at this time along with CT scan of the abdomen and pelvis as well (2) Weakness Onset Date: 06/11/16 Current Visit: No Status: Acute Plan: Most likely secondary to low-sodium -PT consult at this time -patient still complaining of having some generalized weakness (3) Lung cancer Onset Date: 07/28/18 Current Visit: Yes Status: Acute Plan: Right-sided lung mass with recent biopsy with a pulmonology. Path Report pending presumed small cell CA -will follow up with biopsy results with pathology -pulmonology consulted. Appreciated recommendations at this time -Oncology consulted. Reccs appreciated as well. -will start chemotherapy outpatient for the patient Qualifiers: Laterality: right Lung location: unspecified part of lung Qualified Code( s): C34.91 - Malignant neoplasm of unspecified part of right bronchus or lung (4) HTN (hypertension) Onset Date: 07/28/18 Current Visit: Yes Status: Chronic Qualifiers: Hypertension type: essential hypertension (5) COPD (chronic obstructive pulmonary disease) Onset Date: 07/28/18 Current Visit: Yes Status: Chronic Qualifiers: COPD type: chronic bronchitis Chronic bronchitis type: mucopurulent Qualified Code(s): J41.1 - Mucopurulent chronic bronchitis (6) Carotid artery disease Onset Date: 07/28/18 Current Visit: Yes Status: Chronic Qualifiers: Carotid artery disease type: stenosis Laterality: bilateral Qualified Code(s): I65.23 - Occlusion and stenosis of bilateral carotid arteries - Plan Patient is pending clinical improvement at this time. Given the acute worsening of his altered mental status this morning. It is necessary the patient be evaluated for any acute abnormality given his hypernatremia and recent diagnosis of lung cancer. We will at this time get a CT scan of the abdomen and pelvis and MRI of the brain to evaluate further for his altered mental status. If both of these results were within normal limits then patient' s altered mental status could be secondary to his hyponatremia and patient has been treated for hyponatremia with demeclocycline at this time. Will monitor his sodium levels closely here in the hospital not to overcorrected too fast. Patient and at bedside both were educated extensively regarding this and will follow up with patient tomorrow morning Discharge Plan: Other Plan to discharge in: 48 Hours - Code Status/Comfort Care Code Status Assessed: Yes Critical Care: No
--- NOTE | 2018-07-29 15:55 | RAD REPORT ---
EXAM DESCRIPTION: MRI - Brain W/Wo Cont - 07/29/2018 3:27 pm CLINICAL HISTORY: Lung cancer with leg weakness COMPARISON: [address] TECHNIQUE: Axial, sagittal, and coronal magnetic images of the brain were obtained. Thirteen cc Mult iHance administered intravenously FINDINGS: A 7 millimeter enhancing lesion is present within the suprasellar region abutting the opti c chiasm. It has intermediate to high signal on T2 weighted sequences. The ventricles are normal in caliber. Diffusion-weighted sequences do not demonstrate evidence of an acute infarction. No additional abnormal enhancement within the brain is seen. An extra-axial fluid collection is not noted. Sinuses and mastoids are clear. IMPRESSION: 7 millimeter enhancing lesion within the suprasellar region abutting the optic chiasm. I t is not clearly seen on the 2016 exam. This may represent a metastasis.
[2018-07-29] MEDS: ENOXAPARIN 40 MG/0.4 ML SQ SCH (17:04)
[2018-07-29] MEDS: ACETAMINOPHEN 500 MG TAB PO PRN (17:04)
--- NOTE | 2018-07-29 20:12 | P.PN ---
Subjective Date of Service: 07/29/18 Subjective: No new changes Pt recently diagnosed with lung Ca, recently admitted ffor hyponatremia presented for AMS hyponatremic , mildly improved on fluid restriction Physical Examination - Vital Signs Temperature: 99.4 F Blood Pressure: 146/82 Pulse: 73 Respirations: 16 Pulse Ox (%): 98 - Physical Exam General: Oriented x3 HEENT: Atraumatic Neck: Supple, Without JVD or thyroid abnormality Respiratory: Clear to auscultation bilaterally, Normal air movement Cardiovascular: No edema Gastrointestinal: Normal bowel sounds, No ascites, No tenderness - Studies Medications List Reviewed: Yes Assessment And Plan - Current Problems (Diagnosis) (1) Hyponatremia Onset Date: 07/28/18 Current Visit: Yes Status: Acute (2) Lung cancer Onset Date: 07/28/18 Current Visit: Yes Status: Chronic Qualifiers: Laterality: right Lung location: unspecified part of lung Qualified Code( s): C34.91 - Malignant neoplasm of unspecified part of right bronchus or lung (3) Weakness Onset Date: 07/28/18 Current Visit: Yes Status: Acute - Plan Hyponatremia Likely SIADH NA improved to 122, target 129 by tomorrow water restriction to 800ml/day F/U TSH and cortisol and uric acid level Cont demclocyclin high urine osmol and Na again cortisol level is low , last admission cosyntropin test was -ve will consider tolvaptan if ni improvement Lung CA brain MRI 7mm lesion Oncology and pul f/u Hx of alcohol abuse no tremors
[2018-07-29] MEDS: ONDANSETRON 4 MG/2 ML VIAL IV PRN (20:34)
[2018-07-29 20:56] LABS: BUN Blood Urea Nitrogen 8 mg/dL (7-18); Bicarbonate 22 mmol/L (21-32); Glucose Level 103 mg/dL (74-106); Potassium 4.1 mmol/L (3.5-5.1); Sodium Level 122 mmol/L (136-145)
[2018-07-29] MEDS ORDERED: CYCLOBENZAPRINE 10 MG TAB PO PRN (22:53)
[2018-07-29] MEDS ORDERED: HYDROCODONE/APAP 10/325 TAB PO PRN (22:55)
[2018-07-30 02:08] LABS: BUN Blood Urea Nitrogen 7 mg/dL (7-18); Bicarbonate 25 mmol/L (21-32); Glucose Level 86 mg/dL (74-106); Potassium 4.2 mmol/L (3.5-5.1); Sodium Level 121 mmol/L (136-145)
[2018-07-30 07:02] LABS: Magnesium 1.6 mg/dL (1.8-2.4)
[2018-07-30 07:15] LABS: BUN Blood Urea Nitrogen 7 mg/dL (7-18); Bicarbonate 25 mmol/L (21-32); Glucose Level 73 mg/dL (74-106); Potassium 4.2 mmol/L (3.5-5.1); Sodium Level 122 mmol/L (136-145); Uric Acid 2.2 mg/dL (3.5-7.2)
[2018-07-30] MEDS: THIAMINE 200 MG/2 ML INJ IVP SCH (08:49)
[2018-07-30] MEDS: PANTOPRAZOLE 40MG TABLET PO SCH (08:50)
[2018-07-30] MEDS ORDERED: NICOTINE 14 MG/PAT TD SCH (09:00)
[2018-07-30] MEDS ORDERED: MAGNESIUM SULFATE 1 gm IVPB 1 GM/100 ML BAG IV ONE (09:00)
[2018-07-30] MEDS: ONDANSETRON 4 MG/2 ML VIAL IV PRN (09:45)
[2018-07-30] MEDS ORDERED: INFLUENZA VACCINE (for 3y+) 0.5 ML DOSE IMVAC ONE (10:00)
[2018-07-30] MEDS: DEMECLOCYCLINE HCL 300 MG PO SCH (10:11)
[2018-07-30] MEDS: SODIUM CHLORIDE 1 GM TAB PO SCH (10:11)
--- NOTE | 2018-07-30 12:42 | P.CNS ---
Date of Consult: 07/28/18 Reason for Consult: Hyponatremia lung mass Chief Complaint: Feeling weak History of Present Illness: Patient is 58 years of age well known to me with a history of right-sided lung mass he did undergo IR biopsy on Saturday the nurses presume small-cell lung cancer admitted again with hyponatremia and weakness Allergies codeine Adverse Reaction (Verified 07/25/18 12:09) Nausea/Vomiting hydromorphone Adverse Reaction (Verified 07/25/18 12:09) Nausea/Vomiting Home Medications: Albuterol Sulfate [Proair Hfa] 8.5 gm IH TID PRN #1 hfa.aer.ad 07/15/18 Budesonide/Formoterol Fumarate [Symbicort 160-4.5 Mcg Inhaler] 2 puff IH BID #1 hfa.aer.ad 07/15/18 Pantoprazole [Protonix Tab] 40 mg PO DAILY #30 tab 07/15/18 Thiamine HCl [Vitamin B-1*] 100 mg PO DAILY #90 tablet 07/15/18 Acetaminophen [Tylenol Extra Strength] 500 mg PO PRN PRN 07/25/18 - Past Medical/Surgical History Diabetic: No -: copd -: pancreatitis -: back pain -: Lung Cancer -: Hyponatremia presumed SIADH -: bowel resection w/colostomy 2010 -: rt foot fx-1970 -: revision of colostomy 2014 -: Neck surgery-laminectomy 2015 - Family History Mother Medical History: Cancer Brother Medical History: Hypertension, Diabetes Father Medical History: Cancer Notes: father and mother both lung cancer - Social History Smoking Status: Current every day smoker Alcohol use: No CD- Drugs: No Caffeine use: No Review of Systems General: Weakness Physical Examination Temp Pulse Resp BP Pulse Ox 97 F 73 20 137/89 100 07/30/18 08:00 07/30/18 08:00 07/30/18 08:00 07/30/18 08:00 07/30/18 08:00 General: Alert, Oriented x3 HEENT: Atraumatic Neck: Supple Respiratory: Expiratory wheezes Cardiovascular: No edema, Regular rate/rhythm - Problems (1) Small cell lung cancer Current Visit: Yes Status: Acute Plan: Patient almost certainly has small-cell lung cancer presumptive diagnosis on the biopsy discuss with pathologies tumor markers percent patient is a syndrome of inappropriate ADH secretion I suggest adding demeclocycline in addition to Lasix and the salt tablets oncology consult possible discharge in 1 or 2 days continue with the demeclocycline at home patient knows also has COPD takes bronchodilators
[2018-07-30] MEDS: NICOTINE 14 MG/PAT TD SCH (15:00)
--- NOTE | 2018-07-30 15:37 | P.PN ---
Subjective Date of Service: 07/30/18 Chief Complaint: Feeling weak Patient seen and examined at bedside with RN. Chart reviewed. Case discussed with Oncology, pulmonology, nephrology at this time. Patient complaining of having headaches this morning. Has been having intermittent confusion as well. Patient and at bedside both educated extensively on the nature of his disease and the results for the CT scan of the abdomen and pelvis along with a brain MRI. at bedside complaints of patient complaining of vision changes along with gait problems when trying to get out of bed. Patient advised to use stay in bed at this time and radiation oncology has been consulted to be seen here in the hospital Review of Systems 10-point ROS is otherwise unremarkable Physical Examination - Vital Signs Temperature: 97 F Blood Pressure: 137/89 Pulse: 73 Respirations: 20 Pulse Ox (%): 100 - Physical Exam General: In no apparent distress, Oriented x2, Confused HEENT: Atraumatic, PERRLA, EOMI Neck: Supple, JVD not distended Respiratory: Normal air movement, Expiratory wheezes, Inspiratory wheezes Cardiovascular: Regular rate/rhythm, Normal S1 S2 Gastrointestinal: Normal bowel sounds, No tenderness Musculoskeletal: No tenderness Integumentary: No rashes Neurological: Normal speech, Normal tone, Normal affect Lymphatics: No axilla or inguinal lymphadenopathy - Studies Medications List Reviewed: Yes Assessment And Plan - Current Problems (Diagnosis) (1) Lung cancer Onset Date: 07/28/18 Current Visit: Yes Status: Chronic Plan: Right-sided lung mass with recent biopsy with a pulmonology. 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 Appreciated recommendations at this time -Oncology consulted. Reccs appreciated as well. Qualifiers: Laterality: right Lung location: unspecified part of lung Qualified Code( s): C34.91 - Malignant neoplasm of unspecified part of right bronchus or lung (2) Hyponatremia Onset Date: 07/28/18 Current Visit: Yes Status: Acute Plan: Symptomatic hyponatremia with sodium of 115 on admission. 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 Today with alteration in his mental status intermittently. -nephrology consulted. recommendations appreciate at this time -patient switched to conivaptan at this time -awaiting improvement at this time for his hyponatremia -case management consulted to Jose for the medication at home (3) Weakness Onset Date: 06/11/16 Current Visit: No Status: Acute Plan: Weakness and headache with intermittent confusion. Most likely secondary to hyponatremia versus encephalopathy versus Mirena -PT consult at this time. Appreciated recommendations -patient with ataxic gait. -Bed rest at this time until evaluated further by the radiation oncologist for the brain mass (4) HTN (hypertension) Onset Date: 07/28/18 Current Visit: Yes Status: Chronic Qualifiers: Hypertension type: essential hypertension (5) COPD (chronic obstructive pulmonary disease) Onset Date: 07/28/18 Current Visit: Yes Status: Chronic Qualifiers: COPD type: chronic bronchitis Chronic bronchitis type: mucopurulent Qualified Code(s): J41.1 - Mucopurulent chronic bronchitis (6) Carotid artery disease Onset Date: 07/28/18 Current Visit: Yes Status: Chronic Qualifiers: Carotid artery disease type: stenosis Laterality: bilateral Qualified Code(s): I65.23 - Occlusion and stenosis of bilateral carotid arteries - Plan Patient is pending clinical improvement at this time. Given the symptoms of altered mental status, headaches, blurred vision It is necessary the patient be evaluated for any acute abnormality given his hypernatremia and findings of brain mass on the MRI awaiting radiation oncology recommendations at this time. Patient and at bedside both were educated extensively regarding the disease process and the next steps to be taken once a radiation oncology has provided with the recommendations. Discharge Plan: Home Plan to discharge in: Greater than 2 days - Code Status/Comfort Care Code Status Assessed: Yes Critical Care: No
[2018-07-30] MEDS: ACETAMINOPHEN 500 MG TAB PO PRN (17:22)
[2018-07-30] MEDS: ENOXAPARIN 40 MG/0.4 ML SQ SCH (17:23)
[2018-07-30 17:24] LABS: BUN Blood Urea Nitrogen 10 mg/dL (7-18); Bicarbonate 24 mmol/L (21-32); Glucose Level 157 mg/dL (74-106); Potassium 4.3 mmol/L (3.5-5.1); Sodium Level 124 mmol/L (136-145)
--- NOTE | 2018-07-30 22:10 | PN ---
Date of Progress Note: 07/30/2018 NEPHROLOGY FOLLOWUP Subjective: The patient was admitted with hyponatremia, workup showed brain metastasis. Physical Examination: Vital Signs: When I saw the patient, the patient's blood pressure 137/89, pulse of 73, T-max 100.2. Chest: Clear to auscultation. Heart: S1 and S2, regular. Abdomen: Soft and nontender. Extremities: No edema. Laboratory Data: WBC 4.5, H and H of 11.2 and 33.9, platelets of 285. Sodium 122, potassium of 4.2, bicarb 25, BUN 7, creatinine 0.6, and calcium of 8. Current Medications: The patient is on, 1.Demeclocycline. 2.Hydrocodone. 3.Prednisone. 4.Zofran. 5.Thiamine. Assessment And Plan: 1.Hyponatremia secondary to possible pituitary tumor/syndrome of inappropriate antidiuretic hormone. The patient was failing on demeclocycline. Given the condition, the patient will need to be placed on tolvaptan. We will start the patient on tolvaptan 7.5 giving the fact that last time when we sta rted him on the full dose of 15 mg, he was corrected, will follow up the labs in 12 hours and we will monitor. 2.Hypertension, controlled, continue current monitoring. 3.Tumor with metastasis. We will follow up with Oncology. HEATHER Voice ID: [id number] Report ID: [id number]
[2018-07-30] MEDS ORDERED: DIPHENHYDRAMINE 50 MG/ML VIAL IV ONE (22:14)
--- NOTE | 2018-07-30 23:55 | PN ---
Date of Progress Note: 07/30/2018 History Of Present Illness: The patient doing well. The patient was admitted with hyponatremia. CT show metastasis to the brain. Physical Examination: Vital Signs: When I saw the patient, blood pressure of 115/69, pulse of 78. Chest: Clear to auscultation. Heart: S1, S2. Regular. Abdomen: Soft, nontender. Extremities: No edema. Laboratory Data: H and H 12.2/33.9. Sodium 124, potassium 4.3, bicarb 24, BUN 10, creatinine 0.8, e arlier sodium 122. Urine specific gravity of , sodium in the urine 115. 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 The patient is going to need to be started on Samsca as he is not going to respond to demeclocycli ne or salt tablet. We will discontinue demeclocycline and salt tablet and start the patient on Samsc a. We will start him on 7.5. At last admission when we started him on 15, he overcorrected. We jourdan l follow up the lab tomorrow. 2.Hypertension, controlled optimal. We will follow up the patient. 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 We will follow up with Oncology. 4.Hypomagnesemia, status post supplement. LEIF/BRIAN Voice ID: [id number] Report ID: [id number]
[2018-07-31] MEDS: PANTOPRAZOLE 40MG TABLET PO SCH (06:38)
[2018-07-31 07:32] LABS: BUN Blood Urea Nitrogen 7 mg/dL (7-18); Bicarbonate 25 mmol/L (21-32); Glucose Level 96 mg/dL (74-106); Magnesium 2.2 mg/dL (1.8-2.4); Potassium 4.5 mmol/L (3.5-5.1); Sodium Level 133 mmol/L (136-145)
[2018-07-31] MEDS ORDERED: SAMSCA 15 MG PO SCH ×2 (09:00→13:00)
[2018-07-31] MEDS: methylPREDNISolone 4 MG TAB PO SCH (10:43)
[2018-07-31] MEDS: THIAMINE 200 MG/2 ML INJ IVP SCH (10:44)
--- NOTE | 2018-07-31 12:28 | RAD REPORT ---
EXAM DESCRIPTION: CT - Rad Therapy Fld Place Head - 07/31/2018 10:35 am CLINICAL HISTORY: Radiation therapy planning. CT scan for Radiation Therapy for Brain Mass COMPARISON: Head Brain W/Wo Con dated 07/29/2018; Head Brain Wo Cont dated 07/09/2018; Brain W/Wo Co nt dated 07/29/2018 TECHNIQUE: Non-contrast radiation therapy planning study was performed. All CT scans are performed using dose optimization technique as appropriate and may include automated exposure control or mA/KV adjustment according to patient size. FINDINGS: No acute hemorrhage, hydrocephalus or midline shift is seen. Soft tissue fullness in the sellar region is again noted. The visualized paranasal sinuses and mastoi ds are clear. No destructive bone lesion. IMPRESSION: Radiation planning CT head as detailed above.
--- NOTE | 2018-07-31 12:38 | P.PN ---
Subjective Date of Service: 07/31/18 Chief Complaint: Feeling weak Patient seen and examined at bedside with RN. Chart reviewed. Case discussed with Oncology, pulmonology, nephrology at this time. Patient complaining of having headaches. Has been having intermittent confusion as well. at bedside complaints of patient complaining of vision changes along with gait problems when trying to get out of bed. Patient scheduled for CT head radiation therapy today Review of Systems 10-point ROS is otherwise unremarkable Physical Examination - Vital Signs Temperature: 99.6 F Blood Pressure: 118/65 Pulse: 92 Respirations: 20 Pulse Ox (%): 97 - Physical Exam General: Alert, In no apparent distress, Oriented x2, Confused (Intermittent) HEENT: Atraumatic, PERRLA, EOMI Neck: Supple, JVD not distended Respiratory: Clear to auscultation bilaterally, Normal air movement Cardiovascular: Regular rate/rhythm, Normal S1 S2 Gastrointestinal: Normal bowel sounds, No tenderness Musculoskeletal: No tenderness Integumentary: No rashes Neurological: Normal speech, Normal tone, Normal affect Lymphatics: No axilla or inguinal lymphadenopathy - Studies Medications List Reviewed: Yes Assessment And Plan - Current Problems (Diagnosis) (1) Lung cancer Onset Date: 07/28/18 Current Visit: Yes Status: Chronic Plan: Lung cancer with metastasis to the brain -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 Appreciated recommendations at this time -Oncology consulted. Reccs appreciated as well. Qualifiers: Laterality: right Lung location: unspecified part of lung Qualified Code( s): C34.91 - Malignant neoplasm of unspecified part of right bronchus or lung (2) Hyponatremia Onset Date: 07/28/18 Current Visit: Yes Status: Acute Plan: Symptomatic hyponatremia with sodium of 115 on admission. 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 -intermittent confusion at this time -nephrology consulted. recommendations appreciate at this time -patient switched to conivaptan at this time -case management consulted to arrange for the medication at home -sodium at 130 today (3) Weakness Onset Date: 06/11/16 Current Visit: No Status: Acute Plan: Weakness and headache with intermittent confusion. -Most likely secondary to hyponatremia versus encephalopathy versus brain mets -PT consult at this time. Appreciated recommendations -patient with ataxic gait. Will most likely need a rolling walker at the house (4) HTN (hypertension) Onset Date: 07/28/18 Current Visit: Yes Status: Chronic Qualifiers: Hypertension type: essential hypertension (5) COPD (chronic obstructive pulmonary disease) Onset Date: 07/28/18 Current Visit: Yes Status: Chronic Qualifiers: COPD type: chronic bronchitis Chronic bronchitis type: mucopurulent Qualified Code(s): J41.1 - Mucopurulent chronic bronchitis (6) Carotid artery disease Onset Date: 07/28/18 Current Visit: Yes Status: Chronic Qualifiers: Carotid artery disease type: stenosis Laterality: bilateral Qualified Code(s): I65.23 - Occlusion and stenosis of bilateral carotid arteries - Plan Patient is pending clinical improvement at this time. Given the symptoms of altered mental status, headaches, blurred vision It is necessary the patient be evaluated for any acute abnormality given his [id number] and findings of brain mass on the MRI. Will follow up with the radiation oncologist on further recommendations at this time. After patient has gotten CT radiation head done Discharge Plan: Home Plan to discharge in: 48 Hours - Code Status/Comfort Care Code Status Assessed: Yes Critical Care: No
[2018-07-31] MEDS ORDERED: NA CHLORIDE 0.9% 250 ML IV ONE (13:44)
[2018-07-31] MEDS: NICOTINE 14 MG/PAT TD SCH (14:04)
[2018-07-31 14:41] LABS: Absolute Lymphocytes (CBC) 0.3 K/uL (0.7-4.9); Absolute Monocytes 0.2 K/uL (0.1-1.3); Absolute Neutrophil 5.4 K/uL (1.8-8.0); Basophils % 0.4 % (0-1.3); Eosinophils % 2.4 % (0-4.4); Hematocrit 36.8 % (39.6-49.0); Lymphocytes % 5.3 % (15.3-44.8); MCH 32.8 pg (27.0-35.0); MCV 92.6 fL (80-100); Monocytes % 3.7 % (3.3-12.3); RBC Red Blood Cell Count 3.97 M/uL (4.33-5.43)
[2018-07-31 14:51] LABS: Potassium 4.2 mmol/L (3.5-5.1)
[2018-07-31 15:06] LABS: Blood Morphology Comment NOT SEEN (NOT SEEN); Platelet Estimate ADEQ; Urine White Blood Cell Casts OK
[2018-07-31] MEDS: ENOXAPARIN 40 MG/0.4 ML SQ SCH (17:06)
[2018-07-31] MEDS ORDERED: DIPHENHYDRAMINE 50 MG/ML VIAL IV ONE (17:10)
[2018-07-31 20:58] LABS: Potassium 4.5 mmol/L (3.5-5.1)
--- NOTE | 2018-07-31 21:02 | P.PN ---
Subjective Date of Service: 07/31/18 Chief Complaint: Feeling weak Pt recently diagnosed with lung Ca, recently admitted ffor hyponatremia presented for AMS hyponatremic , switched to tolvaptan NA today 132 AM , target 136 bt tomorrow 5PM liberalize fluid intake will cont to monitor and give D5w if needed Physical Examination - Vital Signs Temperature: 99 F Blood Pressure: 139/72 Pulse: 88 Respirations: 18 Pulse Ox (%): 99 - Physical Exam General: Oriented x3 HEENT: Atraumatic Respiratory: Clear to auscultation bilaterally Cardiovascular: No edema, Regular rate/rhythm, Normal S1 S2 Gastrointestinal: Normal bowel sounds - Studies Medications List Reviewed: Yes Assessment And Plan - Current Problems (Diagnosis) (1) Hyponatremia Onset Date: 07/28/18 Current Visit: Yes Status: Acute (2) Lung cancer Onset Date: 07/28/18 Current Visit: Yes Status: Chronic Qualifiers: Laterality: right Lung location: unspecified part of lung Qualified Code( s): C34.91 - Malignant neoplasm of unspecified part of right bronchus or lung (3) Weakness Onset Date: 07/28/18 Current Visit: Yes Status: Acute - Plan Hyponatremia Likely SIADH TSH ok, low uric acid level Cont demclocyclin high urine osmol and Na low cortsol levl , pt was taking steroids improved on tolvaptan liberalize fluid intake while on tolvaptan Lung CA brain MRI 7mm lesion Oncology and pul f/u plan for brain radiation Hx of alcohol abuse no tremors
[2018-07-31] MEDS ORDERED: D5W 500 ML IV SCH (22:00)
[2018-07-31] MEDS ORDERED: D5W 1,000 ML IV SCH (23:00)
[2018-08-01] MEDS: ACETAMINOPHEN 500 MG TAB PO PRN ×2 (02:30→06:38)
[2018-08-01 05:12] LABS: BUN Blood Urea Nitrogen 9 mg/dL (7-18); Bicarbonate 23 mmol/L (21-32); Glucose Level 135 mg/dL (74-106); Potassium 4.1 mmol/L (3.5-5.1); Sodium Level 137 mmol/L (136-145)
[2018-08-01] MEDS: PANTOPRAZOLE 40MG TABLET PO SCH (06:35)
[2018-08-01] MEDS: THIAMINE 200 MG/2 ML INJ IVP SCH (08:25)
[2018-08-01] MEDS: methylPREDNISolone 4 MG TAB PO SCH (08:25)
--- NOTE | 2018-08-01 10:59 | P.PN ---
Subjective Date of Service: 08/01/18 Chief Complaint: Feeling weak Pt recently diagnosed with lung Ca, recently admitted for hyponatremia presented for AMS hyponatremic , switched to tolvaptan NA today 137 AM , target 136 bt today 5PM liberalize fluid intake On D5W , will cont to monitor BMP and Hold if Na at target Physical Examination - Vital Signs Temperature: 98.3 F Blood Pressure: 129/77 Pulse: 89 Respirations: 16 Pulse Ox (%): 99 - Physical Exam General: Oriented x3 HEENT: Atraumatic Neck: Supple, Without JVD or thyroid abnormality Respiratory: Clear to auscultation bilaterally Cardiovascular: No edema, Regular rate/rhythm, Normal S1 S2, No rubs Gastrointestinal: Normal bowel sounds - Studies Medications List Reviewed: Yes Assessment And Plan - Current Problems (Diagnosis) (1) Hyponatremia Onset Date: 07/28/18 Current Visit: Yes Status: Acute (2) Lung cancer Onset Date: 07/28/18 Current Visit: Yes Status: Chronic Qualifiers: Laterality: right Lung location: unspecified part of lung Qualified Code( s): C34.91 - Malignant neoplasm of unspecified part of right bronchus or lung (3) Weakness Onset Date: 07/28/18 Current Visit: Yes Status: Acute - Plan Hyponatremia Likely SIADH TSH ok, low uric acid level high urine osmol and Na low cortsol levl , pt was taking steroids Pt was on demclocylin and salt tablet but with no improvement recived 1 dose of tolvaptan and pt Na overcorrected Now na close to target Lung CA brain MRI 7mm lesion Oncology and pul f/u plan for brain radiation and chemo therapy Hx of alcohol abuse no tremors
[2018-08-01 12:32] LABS: BUN Blood Urea Nitrogen 7 mg/dL (7-18); Bicarbonate 24 mmol/L (21-32); Glucose Level 133 mg/dL (74-106); Potassium 4.3 mmol/L (3.5-5.1); Sodium Level 137 mmol/L (136-145)
--- NOTE | 2018-08-01 14:42 | P.PN ---
Subjective Date of Service: 08/01/18 Chief Complaint: Feeling weak Patient seen and examined at bedside with RN. Chart reviewed. Case discussed with Oncology, pulmonology, nephrology at this time. Patient complaining of having headaches. Has been having intermittent confusion as well. at bedside complaints of patient complaining of vision changes along with gait problems when trying to get out of bed. The above symptoms are Improving today. Review of Systems 10-point ROS is otherwise unremarkable Physical Examination - Vital Signs Temperature: 98.8 F Blood Pressure: 164/87 Pulse: 84 Respirations: 16 Pulse Ox (%): 93 - Physical Exam General: Alert, In no apparent distress HEENT: Atraumatic, PERRLA, EOMI Neck: Supple, JVD not distended Respiratory: Clear to auscultation bilaterally, Normal air movement Cardiovascular: Regular rate/rhythm, Normal S1 S2 Gastrointestinal: Normal bowel sounds, No tenderness Musculoskeletal: No tenderness Integumentary: No rashes Neurological: Normal speech, Normal tone, Normal affect Lymphatics: No axilla or inguinal lymphadenopathy - Studies Medications List Reviewed: Yes Assessment And Plan - Current Problems (Diagnosis) (1) Lung cancer Onset Date: 07/28/18 Current Visit: Yes Status: Chronic Plan: Lung cancer with metastasis to the brain -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 Appreciated recommendations at this time -Oncology consulted. Reccs appreciated as well. -Radiation Oncology consulted. 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 -nephrology consulted. recommendations appreciate at this time -patient on SAMSCA -case management consulted to arrange for the medication at home if not able to do so will discharge on NACL tabs and Demenocycline (3) Weakness Onset Date: 06/11/16 Current Visit: No Status: Acute Plan: Weakness and headache with intermittent confusion. -Most likely secondary to hyponatremia versus encephalopathy versus brain mets -PT consult at this time. Appreciated recommendations -patient with ataxic gait. Will most likely need a rolling walker at the house (4) HTN (hypertension) Onset Date: 07/28/18 Current Visit: Yes Status: Chronic Qualifiers: Hypertension type: essential hypertension (5) COPD (chronic obstructive pulmonary disease) Onset Date: 07/28/18 Current Visit: Yes Status: Chronic Qualifiers: COPD type: chronic bronchitis Chronic bronchitis type: mucopurulent Qualified Code(s): J41.1 - Mucopurulent chronic bronchitis (6) Carotid artery disease Onset Date: 07/28/18 Current Visit: Yes Status: Chronic Qualifiers: Carotid artery disease type: stenosis Laterality: bilateral Qualified Code(s): I65.23 - Occlusion and stenosis of bilateral carotid arteries - Plan Patient is pending clinical improvement at this time. Case management to arrange for a medication for SIADH. Once arrange patient can be discharged home safely Discharge Plan: Home Plan to discharge in: 48 Hours - Code Status/Comfort Care Code Status Assessed: Yes Critical Care: No
[2018-08-01] MEDS: NICOTINE 14 MG/PAT TD SCH (15:58)
[2018-08-01] MEDS: ENOXAPARIN 40 MG/0.4 ML SQ SCH (17:47)
[2018-08-02 05:47] LABS: ALT/SGPT 27 U/L (12-78); AST/SGOT 23 U/L (15-37); Absolute Lymphocytes (CBC) 1.9 K/uL (0.7-4.9); Absolute Monocytes 0.5 K/uL (0.1-1.3); Absolute Neutrophil 3.6 K/uL (1.8-8.0); Albumin 3.1 g/dL (3.4-5.0); Alkaline Phosphatase 61 U/L (45-117); BUN Blood Urea Nitrogen 10 mg/dL (7-18); Basophils % 0.5 % (0-1.3); Bicarbonate 27 mmol/L (21-32); Bilirubin Total 0.3 mg/dL (0.2-1.0); Eosinophils % 8.2 % (0-4.4); Glucose Level 84 mg/dL (74-106); Hematocrit 33.7 % (39.6-49.0); Lymphocytes % 28.8 % (15.3-44.8); MCH 32.7 pg (27.0-35.0); MCV 92.3 fL (80-100); MPV 8.1 fL (7.6-11.3); Monocytes % 7.6 % (3.3-12.3); Potassium 4.2 mmol/L (3.5-5.1); Protein, Total 6.9 g/dL (6.4-8.2); RBC Red Blood Cell Count 3.65 M/uL (4.33-5.43); Sodium Level 139 mmol/L (136-145)
[2018-08-02 07:21] LABS: Blood Morphology Comment NOT SEEN (NOT SEEN); Platelet Estimate ADEQ
[2018-08-02] MEDS ORDERED: SAMSCA 15 MG PO SCH (09:00)
[2018-08-02] MEDS: THIAMINE 200 MG/2 ML INJ IVP SCH (09:03)
[2018-08-02] MEDS: methylPREDNISolone 4 MG TAB PO SCH (09:04)
[2018-08-02] MEDS: PANTOPRAZOLE 40MG TABLET PO SCH (09:04)
--- NOTE | 2018-08-02 13:55 | P.PN ---
Subjective Date of Service: 08/02/18 Chief Complaint: Feeling weak Pt recently diagnosed with lung Ca, recently admitted for hyponatremia presented for AMS hyponatremic , switched to tolvaptan NA 139 this morning initial approved for tolvaptan as an OP , waiting for full approval on Saturday will give tolvaptan today liberalize fluid intake, discussed with pt Physical Examination - Vital Signs Temperature: 98.6 F Blood Pressure: 188/105 Pulse: 76 Respirations: 16 Pulse Ox (%): 97 - Physical Exam General: Oriented x3 HEENT: Atraumatic Neck: Supple Respiratory: Clear to auscultation bilaterally Cardiovascular: No edema, Normal S1 S2, No gallops, No rubs, No murmurs Gastrointestinal: Normal bowel sounds - Studies Medications List Reviewed: Yes Assessment And Plan - Current Problems (Diagnosis) (1) Hyponatremia Onset Date: 07/28/18 Current Visit: Yes Status: Acute (2) Lung cancer Onset Date: 07/28/18 Current Visit: Yes Status: Chronic Qualifiers: Laterality: right Lung location: unspecified part of lung Qualified Code( s): C34.91 - Malignant neoplasm of unspecified part of right bronchus or lung (3) Weakness Onset Date: 07/28/18 Current Visit: Yes Status: Acute - Plan Hyponatremia , resolved SIADH TSH ok, low uric acid level high urine osmol and Na low cortsol levl , pt was taking steroids Pt was on demclocylin and salt tablet but with no improvement respnded to tolvaptan will give tolvaptan today liberalize fluid intake, discussed with pt Lung CA brain MRI 7mm lesion Oncology and pul f/u plan for brain radiation and chemo therapy Hx of alcohol abuse no tremors
--- NOTE | 2018-08-02 14:52 | P.PN ---
Subjective Date of Service: 08/02/18 Chief Complaint: Feeling weak Patient seen and examined at bedside with RN. Chart reviewed. Case discussed with Oncology, pulmonology, nephrology at this time. Pending Approval of [facility] for discharge. Review of Systems 10-point ROS is otherwise unremarkable Physical Examination - Vital Signs Temperature: 98.6 F Blood Pressure: 188/105 Pulse: 76 Respirations: 16 Pulse Ox (%): 97 - Physical Exam General: Alert, In no apparent distress HEENT: Atraumatic, PERRLA, EOMI Neck: Supple, JVD not distended Respiratory: Clear to auscultation bilaterally, Normal air movement Cardiovascular: Regular rate/rhythm, Normal S1 S2 Gastrointestinal: Normal bowel sounds, No tenderness Musculoskeletal: No tenderness Integumentary: No rashes Neurological: Normal speech, Normal tone, Normal affect Lymphatics: No axilla or inguinal lymphadenopathy - Studies Medications List Reviewed: Yes Assessment And Plan - Current Problems (Diagnosis) (1) Lung cancer Onset Date: 07/28/18 Current Visit: Yes Status: Chronic Plan: Lung cancer with metastasis to the brain -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 Appreciated recommendations at this time -Oncology consulted. Reccs appreciated as well. -Radiation Oncology consulted. 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 -nephrology consulted. recommendations appreciate at this time -patient on SAMSCA -case management consulted to arrange for the medication at home as this is First line and best clinical therapy for the patient. -if not able to do so will discharge on NACL tabs and Demenocycline as 2nd line (3) Weakness Onset Date: 06/11/16 Current Visit: No Status: Acute Plan: Weakness and headache with intermittent confusion. -Most likely secondary to hyponatremia versus encephalopathy versus brain mets -PT consult at this time. Appreciated recommendations -patient with ataxic gait. Will most likely need a rolling walker at the house (4) HTN (hypertension) Onset Date: 07/28/18 Current Visit: Yes Status: Chronic Qualifiers: Hypertension type: essential hypertension (5) COPD (chronic obstructive pulmonary disease) Onset Date: 07/28/18 Current Visit: Yes Status: Chronic Qualifiers: COPD type: chronic bronchitis Chronic bronchitis type: mucopurulent Qualified Code(s): J41.1 - Mucopurulent chronic bronchitis (6) Carotid artery disease Onset Date: 07/28/18 Current Visit: Yes Status: Chronic Qualifiers: Carotid artery disease type: stenosis Laterality: bilateral Qualified Code(s): I65.23 - Occlusion and stenosis of bilateral carotid arteries - Plan Patient is pending clinical improvement at this time. Case management to arrange for a medication for SIADH. Once arrange patient can be discharged home safely Discharge Plan: Home Plan to discharge in: 48 Hours - Code Status/Comfort Care Code Status Assessed: Yes Critical Care: No
[2018-08-02] MEDS: NICOTINE 14 MG/PAT TD SCH (15:00)
[2018-08-02] MEDS: ENOXAPARIN 40 MG/0.4 ML SQ SCH (16:10)
[2018-08-02] MEDS: HYDRALAZINE HCL 20 MG/ML VIAL IV PRN (17:01)
[2018-08-02 22:08] LABS: BUN Blood Urea Nitrogen 14 mg/dL (7-18); Bicarbonate 26 mmol/L (21-32); Glucose Level 92 mg/dL (74-106); Potassium 4.1 mmol/L (3.5-5.1); Sodium Level 142 mmol/L (136-145)
[2018-08-03] MEDS: HYDRALAZINE HCL 20 MG/ML VIAL IV PRN (03:55)
[2018-08-03 05:07] LABS: Absolute Lymphocytes (CBC) 2.6 K/uL (0.7-4.9); Absolute Monocytes 0.5 K/uL (0.1-1.3); Absolute Neutrophil 3.5 K/uL (1.8-8.0); Basophils % 0.2 % (0-1.3); Eosinophils % 8.5 % (0-4.4); Hematocrit 35.2 % (39.6-49.0); Lymphocytes % 35.8 % (15.3-44.8); MCV 91.1 fL (80-100); MPV 8.2 fL (7.6-11.3); Monocytes % 7.5 % (3.3-12.3); RBC Red Blood Cell Count 3.86 M/uL (4.33-5.43)
[2018-08-03 05:49] LABS: ALT/SGPT 30 U/L (12-78); AST/SGOT 22 U/L (15-37); Albumin 3.3 g/dL (3.4-5.0); Alkaline Phosphatase 59 U/L (45-117); BUN Blood Urea Nitrogen 13 mg/dL (7-18); Bicarbonate 23 mmol/L (21-32); Bilirubin Total 0.5 mg/dL (0.2-1.0); Glucose Level 96 mg/dL (74-106); Potassium 3.7 mmol/L (3.5-5.1); Protein, Total 7.6 g/dL (6.4-8.2); Sodium Level 138 mmol/L (136-145)
[2018-08-03] MEDS ORDERED: POTASSIUM CL SA 10 MEQ TAB PO ONE (06:00)
[2018-08-03 06:27] LABS: Blood Morphology Comment NOTED (NOT SEEN); Burr Cells 1+; Platelet Estimate ADEQ
[2018-08-03] MEDS: SAMSCA 15 MG PO SCH (08:49)
[2018-08-03] MEDS: methylPREDNISolone 4 MG TAB PO SCH (08:49)
[2018-08-03] MEDS: PANTOPRAZOLE 40MG TABLET PO SCH (08:49)
[2018-08-03] MEDS: THIAMINE 200 MG/2 ML INJ IVP SCH (08:50)
[2018-08-03] MEDS: ACETAMINOPHEN 500 MG TAB PO PRN (11:30)
--- NOTE | 2018-08-03 11:34 | P.PN ---
Subjective Date of Service: 08/03/18 Chief Complaint: Feeling weak Pt recently diagnosed with lung Ca, recently admitted for hyponatremia presented for AMS hyponatremic , switched to tolvaptan will cont tolvaptan 7.5mg po daily initial approved for tolvaptan as an OP , waiting for full approval on Saturday can be discharged once approved for tolvaptan at home need nephrology f/u with 1-2wks liberalize fluid intake, discussed with pt Physical Examination - Vital Signs Temperature: 98.2 F Blood Pressure: 148/94 Pulse: 103 Respirations: 16 Pulse Ox (%): 91 - Physical Exam General: In no apparent distress, Oriented x3 HEENT: Atraumatic Neck: Supple, Without JVD or thyroid abnormality Respiratory: Clear to auscultation bilaterally, Normal air movement Cardiovascular: No edema, Regular rate/rhythm, Normal S1 S2 Gastrointestinal: Normal bowel sounds - Studies Medications List Reviewed: Yes Assessment And Plan - Current Problems (Diagnosis) (1) Hyponatremia Onset Date: 07/28/18 Current Visit: Yes Status: Acute (2) Lung cancer Onset Date: 07/28/18 Current Visit: Yes Status: Chronic Qualifiers: Laterality: right Lung location: unspecified part of lung Qualified Code( s): C34.91 - Malignant neoplasm of unspecified part of right bronchus or lung (3) Weakness Onset Date: 07/28/18 Current Visit: Yes Status: Acute - Plan Hyponatremia , resolved SIADH TSH ok, low uric acid level high urine osmol and Na low cortsol levl , pt was taking steroids Pt was on demclocylin and salt tablet but with no improvement responded to tolvaptan Will cont tolvaptan 7.5mg po daily liberalize fluid intake, discussed with pt Lung CA brain MRI 7mm lesion Oncology and pul f/u plan for brain radiation and chemo therapy Hx of alcohol abuse no tremors
--- NOTE | 2018-08-03 12:47 | P.PN ---
Subjective Date of Service: 08/03/18 Chief Complaint: Feeling weak Patient seen and examined at bedside with RN. Chart reviewed. Case discussed with Oncology, pulmonology, nephrology at this time. Pending Approval of [facility] for discharge. to call the Eligibility line peyman at 8AM and will have an answer for us regarding approval. CM to help with the process. Review of Systems 10-point ROS is otherwise unremarkable Physical Examination - Vital Signs Temperature: 98.2 F Blood Pressure: 148/94 Pulse: 103 Respirations: 16 Pulse Ox (%): 91 - Physical Exam General: Alert, In no apparent distress HEENT: Atraumatic, PERRLA, EOMI Neck: Supple, JVD not distended Respiratory: Clear to auscultation bilaterally, Normal air movement Cardiovascular: Regular rate/rhythm, Normal S1 S2 Gastrointestinal: Normal bowel sounds, No tenderness Musculoskeletal: No tenderness Integumentary: No rashes Neurological: Normal speech, Normal tone, Normal affect Lymphatics: No axilla or inguinal lymphadenopathy - Studies Medications List Reviewed: Yes Assessment And Plan - Current Problems (Diagnosis) (1) Lung cancer Onset Date: 07/28/18 Current Visit: Yes Status: Chronic Plan: Lung cancer with metastasis to the brain -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 Appreciated recommendations at this time -Oncology consulted. Reccs appreciated as well. -Radiation Oncology consulted. 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 -nephrology consulted. recommendations appreciate at this time -patient on SAMSCA -case management consulted to arrange for the medication at home as this is First line and best clinical therapy for the patient. -if not able to do so will discharge on NACL tabs and Demenocycline as 2nd line (3) Weakness Onset Date: 06/11/16 Current Visit: No Status: Acute Plan: Weakness and headache with intermittent confusion. -Most likely secondary to hyponatremia versus encephalopathy versus brain mets -PT consult at this time. Appreciated recommendations -patient with ataxic gait. Will most likely need a rolling walker at the house (4) HTN (hypertension) Onset Date: 07/28/18 Current Visit: Yes Status: Chronic Qualifiers: Hypertension type: essential hypertension (5) COPD (chronic obstructive pulmonary disease) Onset Date: 07/28/18 Current Visit: Yes Status: Chronic Qualifiers: COPD type: chronic bronchitis Chronic bronchitis type: mucopurulent Qualified Code(s): J41.1 - Mucopurulent chronic bronchitis (6) Carotid artery disease Onset Date: 07/28/18 Current Visit: Yes Status: Chronic Qualifiers: Carotid artery disease type: stenosis Laterality: bilateral Qualified Code(s): I65.23 - Occlusion and stenosis of bilateral carotid arteries - Plan Patient is pending clinical improvement at this time. Case management to arrange for a medication for SIADH. Once arrange patient can be discharged home safely Discharge Plan: Home Plan to discharge in: 48 Hours - Code Status/Comfort Care Code Status Assessed: Yes Critical Care: No
[2018-08-03] MEDS: NICOTINE 14 MG/PAT TD SCH (14:14)
[2018-08-03] MEDS: ENOXAPARIN 40 MG/0.4 ML SQ SCH (16:33)
[2018-08-03 22:30] VITALS: O2SAT 98
[2018-08-04] MEDS: HYDRALAZINE HCL 20 MG/ML VIAL IV PRN (00:42)
[2018-08-04 06:32] LABS: Absolute Lymphocytes (CBC) 2.8 K/uL (0.7-4.9); Absolute Monocytes 0.6 K/uL (0.1-1.3); Absolute Neutrophil 2.8 K/uL (1.8-8.0); Basophils % 0.4 % (0-1.3); Eosinophils % 7.5 % (0-4.4); Hematocrit 36.4 % (39.6-49.0); Lymphocytes % 41.8 % (15.3-44.8); MCV 92.7 fL (80-100); MPV 8.2 fL (7.6-11.3); Monocytes % 8.9 % (3.3-12.3); RBC Red Blood Cell Count 3.93 M/uL (4.33-5.43)
[2018-08-04 06:46] LABS: ALT/SGPT 28 U/L (12-78); AST/SGOT 20 U/L (15-37); Albumin 3.7 g/dL (3.4-5.0); Alkaline Phosphatase 64 U/L (45-117); BUN Blood Urea Nitrogen 16 mg/dL (7-18); Bicarbonate 26 mmol/L (21-32); Bilirubin Total 0.5 mg/dL (0.2-1.0); Glucose Level 86 mg/dL (74-106); Potassium 4.2 mmol/L (3.5-5.1); Protein, Total 8.2 g/dL (6.4-8.2); Sodium Level 141 mmol/L (136-145)
[2018-08-04 06:51] VITALS: BMI 17.9
[2018-08-04] MEDS: PANTOPRAZOLE 40MG TABLET PO SCH (08:21)
[2018-08-04 08:40] LABS: Blood Morphology Comment NOT SEEN (NOT SEEN); Platelet Estimate ADEQ
[2018-08-04 08:47] LABS: Urine White Blood Cell Casts OK
[2018-08-04] MEDS: THIAMINE 200 MG/2 ML INJ IVP SCH (09:09)
[2018-08-04] MEDS: methylPREDNISolone 4 MG TAB PO SCH (09:10)
[2018-08-04] MEDS: SAMSCA 15 MG PO SCH (09:43)
[2018-08-04] MEDS ORDERED: ACETAMINOPHEN 500 MG TAB PO PRN (14:04)
--- NOTE | 2018-08-04 14:04 | P.DS ---
Admission Date: 07/27/18 Discharge Date: 08/04/18 Primary Care Provider: Dr. Kendall; Nephrology-Dr. Kirkpatrick; Pulmonary-Dr. Brenner ; Oncology-Dr. Olson Disposition: ROUTINE DISCHARGE Discharge Condition: GOOD Reason for Admission: Feeling weak Consultations: Pulmonology-Dr. Phillips Nephrology-Dr. Kirkpatrick Oncology-Dr. Rolon Radiation Oncology-Dr. Patterson Procedures: CT abdomen pelvis: COMPARISON: 2013 TECHNIQUE: Computed axial tomography of the abdomen and pelvis was obtained. 100 cc Isovue-300 is administered intravenously. Oral contrast was given. All CT scans are performed using dose optimization technique as appropriate and may include automated exposure control or mA/KV adjustment according to patient size. FINDINGS: 17 millimeter low-density mass abutting the anterior aspect of the left lobe of the liver is without significant change likely benign. Liver is otherwise unremarkable Spleen, pancreas, adrenals and kidneys appear unremarkable. The appendix is normal caliber. There is no evidence of diverticulitis. Small duodenal diverticulum. The wall of the distal stomach appears thickened A moderate amount stool is present within the colon. Mild laxity of the anterior abdominal wall. IMPRESSION: Thickening of the wall of the distal stomach may indicate pathology such as inflammation or be secondary to incomplete distention. Moderate amount stool throughout the colon Brain MRI: COMPARISON: [address] TECHNIQUE: Axial, sagittal, and coronal magnetic images of the brain were obtained. Thirteen cc MultiHance administered intravenously FINDINGS: A 7 millimeter enhancing lesion is present within the suprasellar region abutting the optic chiasm. It has intermediate to high signal on T2 weighted sequences. The ventricles are normal in caliber. Diffusion-weighted sequences do not demonstrate evidence of an acute infarction. No additional abnormal enhancement within the brain is seen. An extra-axial fluid collection is not noted. Sinuses and mastoids are clear. IMPRESSION: 7 millimeter enhancing lesion within the suprasellar region abutting the optic chiasm. It is not clearly seen on the 2016 exam. This may represent a metastasis. 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 Patient with recent diagnosis of small-cell lung cancer and hyponatremia secondary to SIADH. Patient with recent hospitalization. Patient found to be hypernatremic. Patient admitted for further evaluation. Hospital Course: Patient admitted for symptomatic hyponatremia. Patient presented with headaches , weakness and ataxic gait. Patient found to be hyponatremic. Patient with recent diagnosis of small-cell lung cancer to the right side with noted SIADH. Patient further evaluated by nephrology, oncology, and radiation oncology during his stay. Patient had MRI brain showing possible metastasis with a 7 mm enhancing lesion within the suprasellar region abutting the optic chiasm. Patient was stabilized. Patient received Tolvaptan 7.5 daily for his hyponatremia. This improved. Symptoms also improved. Prior to discharge radiation oncology recommended to start radiation therapy for his lung cancer. This would help with his SIADH. Prior to discharge arrangements for him to get Tolvaptan was addressed with the help of geriatric social work professor. Patient will continue with this medication at discharge. If the patient is not able to afford this, patient will need to be on sodium tablets 2 g twice daily and Demeclocycline 300 mg 1 pill twice daily. At discharge patient will go directly to radiation oncology to receive treatment. Recommendation to recheck BMP in the next 2 days. Patient will also need to follow up with nephrology in 1 week to follow up this hospitalization. Patient will continue with follow up with oncology and radiation oncology. Patient found to have possible metastasis to the brain. At discharge patient will continue with Medrol 4 mg daily for 7 days. Patient may follow up with oncology to further monitor and address. Patient will need to be evaluated as an outpatient for possible pituitary tumor. Patient with elevated blood pressure. This remained stable during his stay. He is to monitor his blood pressures daily. No need for medication at this time. If blood pressure remains above 150/90 consistently the patient may require medication. Lisinopril 10 mg 1 pill daily can be added at that time. This can be further addressed by his PCP. Patient has COPD. Patient will continue with Symbicort 160 mcg 2 puffs twice daily and Pro air 2 puffs 3 times a day as needed for shortness of breath. Patient will follow up with pulmonology as directed. Patient with history of alcohol use. Patient will continue with thiamine 100 mg daily. Alcohol cessation education will continue. Patient has GERD. Patient will continue with Protonix 40 mg 1 pill once daily. Vital Signs/Physical Exam: Temp Pulse Resp BP Pulse Ox 98 F 92 H 18 147/79 H 98 08/04/18 08:00 08/04/18 08:00 08/04/18 08:00 08/04/18 08:00 08/04/18 08:00 General: Alert, In no apparent distress, Oriented x3, Cooperative HEENT: Atraumatic Neck: Supple Respiratory: Clear to auscultation bilaterally, Normal air movement Cardiovascular: Normal pulses, Regular rate/rhythm Gastrointestinal: Normal bowel sounds, Soft and benign, Non-distended, No tenderness, No masses, No rebound, No guarding Musculoskeletal: No erythema, No tenderness, No warmth Integumentary: No tenderness/swelling, No erythema, No warmth, No cyanosis Neurological: Normal speech, Normal strength at 5/5 x4 extr, Normal tone, Normal affect Laboratory Data at Discharge: WBC 6.7 K/uL (4.3-10.9) 08/04/18 05:52 Hgb 12.6 g/dL (13.6-17.9) L 08/04/18 05:52 Hct 36.4 % (39.6-49.0) L 08/04/18 05:52 Plt Count 292 K/uL (152-406) 08/04/18 05:52 PT 12.3 SECONDS (9.5-12.5) 07/27/18 00:12 INR 1.04 07/27/18 00:12 Sodium 141 mmol/L (136-145) 08/04/18 05:52 Potassium 4.2 mmol/L (3.5-5.1) 08/04/18 05:52 BUN 16 mg/dL (7-18) 08/04/18 05:52 Creatinine 0.80 mg/dL (0.55-1.3) 08/04/18 05:52 Glucose 86 mg/dL (74-106) 08/04/18 05:52 Uric Acid Cancelled 07/30/18 07:00 Phosphorus 3.1 mg/dL (2.5-4.9) 07/27/18 10:10 Magnesium 2.2 mg/dL (1.8-2.4) D 07/31/18 07:05 Total Bilirubin 0.5 mg/dL (0.2-1.0) 08/04/18 05:52 AST 20 U/L (15-37) 08/04/18 05:52 ALT 28 U/L (12-78) 08/04/18 05:52 Alkaline Phosphatase 64 U/L (45-117) 08/04/18 05:52 Home Medications: Albuterol Sulfate [Proair Hfa] 8.5 gm IH TID PRN #1 hfa.aer.ad 07/15/18 Budesonide/Formoterol Fumarate [Symbicort 160-4.5 Mcg Inhaler] 2 puff IH BID #1 hfa.aer.ad 07/15/18 Pantoprazole [Protonix Tab*] 40 mg PO DAILY #30 tab 07/15/18 Thiamine HCl [Vitamin B-1*] 100 mg PO DAILY #90 tablet 07/15/18 Acetaminophen [Tylenol Extra Strength] 500 mg PO PRN PRN 07/25/18 Tolvaptan [Samsca] 15 mg PO DAILY #30 tablet 08/04/18 methylPREDNISolone [Medrol*] 4 mg PO DAILY #7 tab 08/04/18 New Medications: methylPREDNISolone [Medrol*] 4 mg PO DAILY #7 tab Tolvaptan [Samsca] 15 mg PO DAILY #30 tablet Patient Discharge Instructions: 1. Patient will need to follow up with his PCP in 1 week to follow up this hospitalization. 2. Patient admitted for symptomatic hyponatremia. Patient presented with headaches, weakness and ataxic gait. Patient found to be hyponatremic. Patient with recent diagnosis of small-cell lung cancer to the right side with noted SIADH. Patient further evaluated by nephrology, oncology, and radiation oncology during his stay. Patient had MRI brain showing possible metastasis with a 7 mm enhancing lesion within the suprasellar region abutting the optic chiasm. Patient was stabilized. Patient received Tolvaptan 7.5 daily for his hyponatremia. This improved. Symptoms also improved. Prior to discharge radiation oncology recommended to start radiation therapy for his lung cancer. This would help with his SIADH. Prior to discharge arrangements for him to get Tolvaptan was addressed with the help of geriatric social work professor. Patient will continue with this medication at discharge. If the patient is not able to afford this, patient will need to be on sodium tablets 2 g twice daily and Demeclocycline 300 mg 1 pill twice daily. At discharge patient will go directly to radiation oncology to receive treatment. Recommendation to recheck BMP in the next 2 days. Patient will also need to follow up with nephrology in 1 week to follow up this hospitalization. Patient will continue with follow up with oncology and radiation oncology. 3. Patient found to have possible metastasis to the brain. At discharge patient will continue with Medrol 4 mg daily for 7 days. Patient may follow up with oncology to further monitor and address. Patient will need to be evaluated as an outpatient for possible pituitary tumor. 4. Patient with elevated blood pressure. This remained stable during his stay. He is to monitor his blood pressures daily. No need for medication at this time. If blood pressure remains above 150/90 consistently the patient may require medication. Lisinopril 10 mg 1 pill daily can be added at that time. This can be further addressed by his PCP. 5. Patient has COPD. Patient will continue with Symbicort 160 mcg 2 puffs twice daily and Pro air 2 puffs 3 times a day as needed for shortness of breath. Patient will follow up with pulmonology as directed. 6. Patient with history of alcohol use. Patient will continue with thiamine 100 mg daily. Alcohol cessation education will continue. 7. Patient has GERD. Patient will continue with Protonix 40 mg 1 pill once daily. Diet: AHA Activity: Fall precautions Time spent managing pt's care (in minutes): 55
[2018-08-04] MEDS ORDERED: PROAIR HFA IH PRN (14:15)
[2018-08-04 14:37] VITALS: BP 146/89; TEMP 98.1
[2018-08-04] MEDS: NICOTINE 14 MG/PAT TD SCH (15:00)
[2018-08-04] MEDS: ENOXAPARIN 40 MG/0.4 ML SQ SCH (17:00)
[2018-08-04] MEDS ORDERED: HOME MED 1 EA UNK (Budesonide/Formoterol Fumarate [Symbicort 160-4.5 Mcg Inhaler] 2 PUFF) IH SCH (21:00)
--- NOTE | 2018-08-04 22:39 | CON ---
Date of Consultation: 07/31/2018 Reason For Consultation: Small cell carcinoma with brain metastasis. History Of Present Illness: A 58-year-old man who presented to the emergency room a few weeks ago with complaints of nausea and weakness and was found to have hyponatremia. A chest x-ray on 07/27/2018 showed a right hilar mass. He was seen by Pulmonology for further evaluation. He was discharged after initial improvement of hyponatremia. A bronchoscopy on 07/25/2018 was performed with findings suspicious for small cell lung cancer. A CT of the abdomen and pelvis on 07/29/2018 showed a 17-mm low-density mass abutting the anterior aspect of the left lower lobe of the liver without significant change, likely benign, and thickening in the wall of distal stomach, possibly just from secondary incomplete distention, otherwise no evidence of distant metastasis. MRI of the brain on 07/29/2018 showed a 7-mm enhancing lesion within the suprasellar region abutting the optic chiasm, not clearly seen on the previous CT of the head in 2015, felt to represent a metastasis in the infundibular stalk. In retrospect, the patient reports some slow progressive decrease in visual acuity in the past year, but no visual field deficits or diplopia. Past Medical History: Chronic alcohol abuse, about 6 pack of beer a day for more than 30 years, COPD, pancreatitis, back pain, bowel resection with colostomy in 2010, right foot fracture in 1970, revision colostomy 2014, neck surgery with laminectomy in 2016. Family History: Mother and father had lung cancer. Social History: He lives with his in [place], [place], and has 1 grown son. He reports quitting smoking 3 weeks ago, but has at least a 40 pack-year smoking history as well as 6 packs of beer a day for more than 30 years. Review of Systems: General: Generalized weakness. Unquantified weight loss over the past year. Head and Neck: No diplopia, no dysphagia, no trismus. No icterus or jaundice. Cardiac: No chest pain or palpitations. No peripheral edema. Pulmonary: Mild exertional dyspnea with cough. GI: No abdominal pain. No diarrhea or constipation or rectal bleeding. Neurologic: No gait ataxia. No localized extremity weakness. No memory loss. Mild headache and mild subjective visual acuity loss. Physical Examination: General: Moderate to well developed. Head and Neck: Anicteric sclerae. Oral cavity and oropharynx without lesions. Neck, no palpable adenopathy. Chest: Mild diminished breath sounds on right. No dullness to percussion. Cardiac: Regular rate and rhythm. Abdomen: Nontender. Extremities: No cyanosis, clubbing, or edema. Neurologic: Visual field check on direct confrontation with no obvious field deficits, extraocular movements intact, remaining cranial nerves intact, visual acuity at close and several feet intact to fingers, but not to fine print at 6 feet away. Gait, no ataxia. Cerebellar exam, [id number] intact. Assessment: Small cell carcinoma of the lung with a right hilar mass, and an infundibular, pituitary/suprasellar mass abutting the optic chiasm. This is a potential solitary brain metastasis. Plan: We will perform simulation CT of the brain for outpatient treatment focally to the suprasellar mass as a test dose of 4-5 treatments, which should respond well if small cell metastasis. The plan would be to proceed with chemotherapy afterwards and reserve whole-brain treatment for after completion of chemotherapy, plus or minus thoracic treatment. We can proceed with whole- brain radiation after chemotherapy and thoracic radiation, if there is treatment response or stable disease, per guidelines. DEMARIO/BRIAN Voice ID: [id number] Report ID: [id number] JENNYFER
--- NOTE | 2018-08-05 04:52 | PN ---
Date of Progress Note: 08/04/2018 Chief Complaint: Hyponatremia, hypo-osmolar SIADH. History: The patient recently was diagnosed with lung cancer, was admitted primarily for hyponatremia. On previous occasion he presented with altered mental status during previous admission. The patient during this admission was treated with sodium chloride tablets and subsequently he was switched to tolvaptan. He is to continue tolvaptan 7.5 mg daily and is awaiting approval for outpatient tolvaptan and prescription will be filled as soon as insurance approves medication. Review of Systems: Denies fever, chills. Physical Examination: NAD Heart: S1, S2. Abdomen: Soft, benign. Extremities: No edema. Laboratory Work: Showed hemoglobin 12.6, WBC 6.7, platelet count 292,000. Sodium 141, potassium 4.2, chloride 106, CO2 26, BUN 16, creatinine 0.8, calcium 9.4, uric acid 2.2. Impression And Plan: Hypo-osmolar, hyponatremia corrected gradually and over last 4 days sodium level has been in stable range on tolvaptan. The patient is to continue current dose and plan is to schedule blood work as soon as possible. The patient was instructed to call Nephrology office to arrange outpatient lab work. When the patient on tolvaptan he will need have labs outpatient to monitor electrolytes and adjust dose of tolvaptan as needed. Lung cancer per Pulmonary. EB/MODL Voice ID: [id number] Report ID: [id number] JENNYFER
[2018-08-05] MEDS ORDERED: THIAMINE HCL 100 MG TABLET PO SCH (09:00)
== END 2018-08-04 17:58 | disposition home or self-care (01) | DRG 644 ==
LOC: ER 23:26 → ERHOLD 07-27 02:04 → 3RD-ICU 07-27 07:27 → 2ND 07-28 14:34
PROVIDERS: ADMIT Internal Medicine; ATTEND Family Medicine
DX: E22.2 Syndrome of inappropriate secretion of antidiuretic hormone (principal); C34.91 Malignant neoplasm of unspecified part of right bronchus or lung; E46 Unspecified protein-calorie malnutrition; Z68.1 Body mass index [BMI] 19.9 or less, adult; C79.31 Secondary malignant neoplasm of brain; C79.89 Secondary malignant neoplasm of other specified sites; R26.0 Ataxic gait; E83.42 Hypomagnesemia; J44.9 Chronic obstructive pulmonary disease, unspecified; I10 Essential (primary) hypertension; I65.23 Occlusion and stenosis of bilateral carotid arteries; F17.200 Nicotine dependence, unspecified, uncomplicated
CPT/HCPCS: 36415; 70553; 71045; 74177; 76770; 77295; 77300; 77334; 80048; 80053; 80076; 80307; 81001; 81003; 82533; 82550; 82570; 82962; 83735; 83880; 83930; 83935; 84100; 84300; 84443; 84484; 84550; 85025; 85610; 93005; 94760; 96374; 97163; 99285; A9577; J0360; J1650; J2405; J3411; J3475; J7030; J7509; Q9967

== ENCOUNTER 2019-06-01 02:20 | Observation (INO) | payer OTHER ==
--- OUTSIDE RECORDS SUMMARY | 2019-06-01 02:22 | XMS REPORT | Clinical Summary ---
:1960 Author Organization [facility] Address [address] [place] [address] Care Team Providers Name Role Phone Huey Kendall Katia Primary Care Provider Allergies Active Allergy Reactions Severity Noted Date Comments Codeine Nausea And Vomiting High 06/13/2016 Medications Medication Sig Dispensed Refills Start Date End Date Status LIPASE/PROTEASE/AMYLA Take by mouth 4 0 Active SE (CREON ORAL) (four) times daily after meals and nightly. [id number] Take 2 capsules 30 capsule 1 06/20/2016 [...] Not on file Implants Implanted Type Area Telephone Collector Device Shelf Model / Identifier Expiration Serial / Date Lot Tiss Live Kt Lyo Thrombin 8ml 2993 - [id number] Cement/Fi N/A: Spine J &J: ETHICON 11/06/2017 [id number] / Implanted: Qty: 2 on 06/14/2016 by Chilo Diaz MD ller/Adhe Cervical / sive [id number] Set Scr M6 [id number] - [id number] Spine N/A: Spine MEDTRONIC:SPINA [id number] / Implanted: Qty: 6 on 06/14/2016 by Chilo Diaz MD Cervical L BIOLOGICS / Scr Vertex 14mm [id number] - [id number] Spine N/A: Spine MEDTRONIC:SPINA [id number] / Implanted: Qty: 4 on 06/14/2016 by Chilo Diaz MD Cervical L BIOLOGICS / Scr Multiaxial 3.5x16mm [id number] - [id number] Spine N/A: Spine MEDTRONIC: SPINA [id number] / Implanted: Qty: 2 on 06/14/2016 by Chilo Diaz MD Cervical L BIOLOGICS / Alonzo Precut 3.5x40mm [id number] - [id number] Spine N/A: Spine MEDTRONIC:SPINA [id number] / Implanted: Qty: 2 on 06/14/2016 by Chilo Diaz MD Cervical L BIOLOGICS / Orthoblend Small N/A: Spine MEDTRONIC 02/21/2018 [id number] / Implanted: Qty: 1 on 06/14/2016 by Chilo Diaz MD Cervical [id number] / Results Not on fileafter 05/31/2018 Insurance Payer Benefit Plan / Group Subscriber ID Type Phone Address [facility] xxxxxxxxxxx PPO ([place]) [place] [address] Advance Directives For more information, please contact:[address] [phone] Code Status Date Activated Date Inactivated Comments Full Code 06/13/2016 11:47 PM 06/20/2016 8:18 PM This code status was determined by: Patient
[2019-06-01] MEDS ORDERED: NA CHLORIDE 0.9% 2,000 ML ONE (03:04)
[2019-06-01 03:17] LABS: Absolute Lymphocytes (CBC) 1.9 K/uL (0.7-4.9); Basophils % 1.1 % (0-1.3); Hematocrit 30.2 % (39.6-49.0); Lymphocytes % 24.1 % (15.3-44.8); MPV 9.1 fL (7.6-11.3); RBC Red Blood Cell Count 3.44 M/uL (4.33-5.43)
[2019-06-01 03:18] LABS: Protime INR 1.06
[2019-06-01] MEDS ORDERED: ONDANSETRON 4 MG/2 ML VIAL ONE ×2 (03:19→07:13)
[2019-06-01] MEDS ORDERED: MORPHINE 4 MG/ML SYR ONE ×2 (03:19→04:46)
[2019-06-01 03:36] LABS: ALT/SGPT 15 U/L (12-78); AST/SGOT 13 U/L (15-37); Albumin 3.6 g/dL (3.4-5.0); Alkaline Phosphatase 56 U/L (45-117); BUN Blood Urea Nitrogen 16 mg/dL (7-18); Bicarbonate 26 mmol/L (21-32); Bilirubin Direct < 0.1 mg/dL (0-0.2); Bilirubin Total 0.3 mg/dL (0.2-1.0); Glucose Level 102 mg/dL (74-106); Magnesium 1.1 mg/dL (1.8-2.4); NT PRO-BNP 69 pg/mL (<125); Potassium 3.6 mmol/L (3.5-5.1); Protein, Total 6.6 g/dL (6.4-8.2); Sodium Level 134 mmol/L (136-145); Troponin (Emerg Dept Use Only) < 0.02 ng/mL (0.0-0.045)
[2019-06-01] MEDS ORDERED: Magnesium Sulfate 2gm IVPB 2 G/50 ML BAG IV ONE ×2 (04:46→21:00)
--- NOTE | 2019-06-01 04:56 | EDPHYS ---
Physician Documentation [facility] Name: Anuj Madirgal Jr Age: 59 yrs Sex: Male : 1960 Arrival Date: 06/01/2019 Time: 02:23 Bed 20 Private MD: ED Physician Arnoldo Lopez HPI: 06/01 05:24 This 59 yrs old Male presents to ER via Wheelchair with complaints of Chest tw4 Pain. 05:24 The patient or guardian reports chest pain that is located primarily in the substernal tw4 area. Onset: today. The pain does not radiate. Associated signs and symptoms: The patient has no apparent associated signs or symptoms. The chest pain is described as a heaviness. Duration: The patient or guardian reports a single episode, that is still ongoing. Modifying factors: The symptoms are alleviated by nothing. the symptoms are aggravated by nothing. Severity of pain: At its worst the pain was moderate in the emergency department the pain is unchanged. The patient has not experienced similar symptoms in the past. Historical: - Allergies: 02:36 Codeine; bb - Home Meds: 02:36 Symbicort inhalation inhalation [Active]; ProAir HFA inhalation inhalation [Active]; bb Meclizine Oral [Active]; - PMHx: 02:36 Back pain; COPD; Diverticulitis; Lung CA; Pancreatitis; bb 07:58 SMALL CELL CANCER, METATSTISIS TO BRAIN AND OTHER BODY PARTS; ch - PSHx: 02:36 Bowel resection; laminectomy; bowel reconstruction; bb - Immunization history:: Adult Immunizations up to date. - Social history:: Smoking status: unknown. - Ebola Screening: : No symptoms or risks identified at this time. ROS: 05:24 Constitutional: Negative for fever, chills, and weight loss, Respiratory: Negative for tw4 shortness of breath, cough, wheezing, and pleuritic chest pain, Abdomen/GI: Negative for abdominal pain, nausea, vomiting, diarrhea, and constipation, Back: Negative for injury and pain, MS/Extremity: Negative for injury and deformity, Skin: Negative for injury, rash, and discoloration, Neuro: Negative for headache, weakness, numbness, tingling, and seizure. 05:24 Cardiovascular: Positive for chest pain, Negative for edema, orthopnea, palpitations. Exam: 05:24 Constitutional: This is a well developed, well nourished patient who is awake, alert, tw4 and in no acute distress. 05:24 Cardiovascular: Regular rate and rhythm with a normal S1 and S2. No gallops, murmurs, or rubs. Normal PMI, no JVD. No pulse deficits. Respiratory: Lungs have equal breath sounds bilaterally, clear to auscultation and percussion. No rales, rhonchi or wheezes noted. No increased work of breathing, no retractions or nasal flaring. Abdomen/GI: Soft, non-tender, with normal bowel sounds. No distension or tympany. No guarding or rebound. No evidence of tenderness throughout. Back: No spinal tenderness. No costovertebral tenderness. Full range of motion. MS/ Extremity: Pulses equal, no cyanosis. Neurovascular intact. Full, normal range of motion. Neuro: Awake and alert, GCS 15, oriented to person, place, time, and situation. Cranial nerves II-XII grossly intact. Motor strength 5/5 in all extremities. Sensory grossly intact. Cerebellar exam normal. Normal gait. 05:24 Eyes: Conjunctiva: pale, bilaterally, Sclera: Vital Signs: 02:36 BP 106 / 71; Pulse 105; Resp 16 S; Temp 97.7(O); Pulse Ox 100% on R/A; Weight 53.52 kg bb (R); Height 5 ft. 10 in. (177.80 cm) (R); Pain 10/10; 03:00 BP 51 / 37; Pulse 79; Resp 24 S; Pulse Ox 100% on R/A; Pain 10/10; jd3 03:05 BP 67 / 51; Pulse 82; Resp 23 S; Pulse Ox 100% on R/A; Pain 10/10; jd3 03:15 BP 123 / 84; Pulse 98; Resp 17 S; Pulse Ox 99% on R/A; Pain 10/10; jd3 03:30 BP 128 / 96; Pulse 99; Resp 20 S; Pulse Ox 99% on 2 lpm NC; Pain 10/10; jd3 04:45 BP 112 / 75; Pulse 103; Resp 20 S; Pulse Ox 100% on 2 lpm NC; Pain 10/10; jd3 05:09 Weight 57.4 kg (M); jd3 05:41 BP 110 / 83; Pulse 111; Resp 20 S; Pulse Ox 100% on 2 lpm NC; Pain 7/10; jd3 06:29 BP 115 / 64; Pulse 118; Resp 17 S; Pulse Ox 99% on 2 lpm NC; Pain 7/10; jd3 07:01 BP 116 / 82; Pulse 106; Pulse Ox 100% on R/A; ch 07:27 BP 102 / 68; Pulse 114; Resp 24; Pulse Ox 98% on 2 lpm NC; Pain 7/10; ch 05:09 Body Mass Index 18.16 (57.40 kg, 177.80 cm) jd3 MDM: 02:27 Patient medically screened. tw4 05:24 HEART Score: History: Moderately Suspicious (1), ECG: Significant ST-deviation (2), tw4 Age: > 45 and < 65 years (1), Risk Factors: 1 or 2 risk factors (1), Troponin: < or = 1 x Normal Limit (0), Total Score = 5. The patient's pulmonary embolism risk score was calculated as follows: suspected deep vein thrombosis (3 Pts) the patients heart rate is greater than 100 beats per minute (1.5 Pts) malignancy Total Score: 3-6 points. This patient was found to be at moderate risk for a pulmonary embolism by using the Well's assessment criteria. Data reviewed: vital signs, nurses notes. Data reviewed: lab test result(s), cardiac enzymes, CPK, CK MB, troponin i, CBC, white blood cell count, hemoglobin, hematocrit, platelets, electrolytes, sodium, potassium, chloride, serum bicarbonate, BUN, creatinine, serum glucose, EKG, radiologic studies, plain films. Data interpreted: day guard: rhythm is sinus tachycardia, Pulse oximetry: Interpretation: normal. Test interpretation: by ED physician or midlevel provider: ECG, plain radiologic studies. Counseling: I had a detailed discussion with the patient and/or guardian regarding: the historical points, exam findings, and any diagnostic results supporting the discharge/admit diagnosis, lab results, radiology results. Physician consultation: Celestine Faustin DO regarding admission, to the telemetry unit. patient's condition, need to come to ED to see patient, and will see patient in ED. 06/01 02:27 Order name: Basic Metabolic Panel; Complete Time: 04:22 tw4 06/01 04:22 Interpretation: Normal except: NA 134; GFR 75. tw4 09/23 02:27 Order name: CBC with Diff; Complete Time: 04:22 06/01 04:22 Interpretation: Normal except: RBC 3.44; HGB 10.4; HCT 30.2; MCV 87.9; EOSINOPHIL % 6.2.06/01 02:27 Order name: LFT's; Complete Time: 04:22 06/01 04:22 Interpretation: Abnormal: AST 13. 06/01 02:27 Order name: Magnesium; Complete Time: 04:22 06/01 04:22 Interpretation: Abnormal: MG 1.1. 06/01 02:27 Order name: NT PRO-BNP; Complete Time: 04:22 06/01 04:23 Interpretation: Within normal limits: NT PRO-BNP 69. 06/01 02:27 Order name: PT-INR; Complete Time: 04:22 06/01 04:23 Interpretation: Within normal limits: PT 12.5. 06/01 02:27 Order name: Troponin (emerg Dept Use Only); Complete Time: 04:22 06/01 04:23 Interpretation: Within normal limits: TROPED < 0.02. 06/01 02:27 Order name: XRAY Chest (1 view) 06/01 03:05 Order name: CT Chest For PE Angio 06/01 04:55 Order name: ABG 06/01 02:27 Order name: EKG; Complete Time: 02:29 06/01 02:27 Order name: Cardiac monitoring; Complete Time: 03:11 06/01 02:27 Order name: EKG - Nurse/Tech; Complete Time: 03:11 06/01 02:27 Order name: IV Saline Lock; Complete Time: 03:11 06/01 02:27 Order name: Labs collected and sent; Complete Time: 03:11 06/01 02:27 Order name: O2 Per Protocol; Complete Time: 03:11 06/01 02:27 Order name: O2 Sat Monitoring; Complete Time: 03:11 06/01 08:13 Order name: Diet Regular; Complete Time: 08:13 ch EC:22 Rate is 102 beats/min. Rhythm is regular, Sinus tachycardia. QRS [place] is Normal. MD tw4 interval is normal. QRS interval is normal. QT interval is normal. No Q waves. T waves are Normal. ST Segment is depressed in leads V4, V5, V6, <1mm. Clinical impression: NSR w/ Non-specific ST/T Changes and Cardiac ischemia. Interpreted by me. Reviewed by me. Administered Medications: 03:00 Drug: NS 0.9% 1000 ml Route: IV; Rate: 1 bolus; Site: right antecubital; jd3 05:40 Follow up: Response: No adverse reaction; IV Status: Completed infusion; IV Intake: jd3 1000ml 03:00 Drug: NS 0.9% 1000 ml Route: IV; Rate: 1 bolus; Site: right antecubital; jd3 05:41 Follow up: Response: No adverse reaction; IV Status: Completed infusion; IV Intake: jd3 1000ml 03:20 Drug: morphine 4 mg Route: IVP; Site: right antecubital; jd3 04:20 Follow up: Response: No adverse reaction; RASS: Alert and Calm (0) jd3 03:20 Drug: Zofran 4 mg Route: IVP; Site: right antecubital; jd3 04:20 Follow up: Response: No adverse reaction jd3 04:50 Drug: morphine 4 mg Route: IVP; Site: right jugular; jd3 05:40 Follow up: Response: No adverse reaction; RASS: Alert and Calm (0) jd3 04:51 Drug: Magnesium Sulfate 2 grams Route: IVPB; Infused Over: 2 hrs; Site: right jugular; jd3 06:50 Follow up: Response: No adverse reaction; IV Status: Completed infusion jd3 05:36 Drug: Heparin (DVT/PE Drip) 18 units/kg/hr - (HEParin 47469 units, D5W 500 ml) jd3 {Co-Signature: jb4 (Kaiden Faye RN).} Route: IV; Rate: calculated rate; Site: right jugular; 08:30 Follow up: IV Status: Infusion continued upon admission ch 05:39 Drug: Heparin (DVT/PE- Bolus per protocol) - HEParin 80 units/kg {Co-Signature: jb4 jd3 (Kaiden Faye RN).} Route: IVP; Site: right jugular; 06:30 Follow up: Response: No adverse reaction jd3 07:10 Drug: Zofran 4 mg {Note: given in R EJ.} Route: IVP; Site: Other; 08:14 Follow up: Response: No adverse reaction Disposition: 06/01/19 04:54 Hospitalization ordered by Celestine Faustin for Inpatient Admission. Preliminary diagnosis are Chest pain, unspecified, Tachycardia, unspecified. - Bed requested for Telemetry/MedSurg (Inpatient). - Status is Inpatient Admission. - Condition is Stable. - Problem is new. - Symptoms have improved. UTI on Admission? No Signatures: Dispatcher [employer] EDMS Madeline Rojas, RN RN Emilee Mccall, RN RN Susana Aleman RN RN Darian Robertson RN RN jArnoldo Pereyra MD MD tw4 Kaiden Faye RN jb4 Corrections: (The following items were deleted from the chart) 05:17 04:54 Hospitalization Ordered by Celestine Faustin DO for Inpatient Admission. Preliminary diagnosis is Chest pain, unspecified; Tachycardia, unspecified. Bed requested for Telemetry/MedSurg (Inpatient). Status is Inpatient Admission. Condition is Stable. Problem is new. Symptoms have improved. UTI on Admission? No. tw4 07:58 07:01 PMHx: currently getting treatment for lung ca-2019; [facility] 09:20 05:17 06/01/2019 04:54 Hospitalization Ordered by Celestine Faustin DO for Inpatient Admission. Preliminary diagnosis is Chest pain, unspecified; Tachycardia, unspecified. Bed requested for Telemetry/MedSurg (Inpatient). Status is Inpatient Admission. Condition is Stable. Problem is new. Symptoms have improved. UTI on Admission? No. cg
--- NOTE | 2019-06-01 04:56 | ER ---
Nurse's Notes [facility] Name: Anuj Madrigal Jr Age: 59 yrs Sex: Male : 1960 Arrival Date: 06/01/2019 Time: 02: Bed 20 Private MD: Diagnosis: Chest pain, unspecified;Tachycardia, unspecified Presentation: 06/01 02:33 Presenting complaint: Patient states: he is having severe chest pain since approx 0100 bb tonight the pain is worse with respirations and moving currently it is 10/10 pt also has had a headache all day. Transition of care: patient was not received from another setting of care. Onset of symptoms was May 31, 2019. Risk Assessment: Do you want to hurt yourself or someone else? Patient reports no desire to harm self or others. Initial Sepsis Screen: Does the patient meet any 2 criteria? No. Patient's initial sepsis screen is negative. Does the patient have a suspected source of infection? No. Patient's initial sepsis screen is negative. Care prior to arrival: None. 02:33 Method Of Arrival: Wheelchair bb 02:33 Acuity: QUENTIN 2 bb Historical: - Allergies: 02:36 Codeine; bb - Home Meds: 02:36 Symbicort inhalation inhalation [Active]; ProAir HFA inhalation inhalation [Active]; bb Meclizine Oral [Active]; - PMHx: 02:36 Back pain; COPD; Diverticulitis; Lung CA; Pancreatitis; bb 07:58 SMALL CELL CANCER, METATSTISIS TO BRAIN AND OTHER BODY PARTS; ch - PSHx: 02:36 Bowel resection; laminectomy; bowel reconstruction; bb - Immunization history:: Adult Immunizations up to date. - Social history:: Smoking status: unknown. - Ebola Screening: : No symptoms or risks identified at this time. Screenin:11 Abuse screen: Denies threats or abuse. Nutritional screening: No deficits noted. jd3 Tuberculosis screening: No symptoms or risk factors identified. Fall Risk Ambulatory Aid- None/Bed Rest/Nurse Assist (0 pts). Gait- Normal/Bed Rest/Wheelchair (0 pts) Mental Status- Oriented to own ability (0 pts). Total [place] Fall Scale indicates No Risk (0-24 pts). Assessment: 02:45 General: Appears in no apparent distress. uncomfortable, Behavior is calm, cooperative, jd3 appropriate for age. Pain: Complains of pain in chest Pain does not radiate. Pain currently is 10 out of 10 on a pain scale. Quality of pain is described as sharp, shooting, Pain began suddenly. Neuro: Level of Consciousness is awake, alert, obeys commands, Oriented to person, place, time, situation. Cardiovascular: Reports chest pain, shortness of breath, Heart tones S1 S2 present Capillary refill < 3 seconds Patient's skin is warm and dry. Rhythm is sinus tachycardia. Respiratory: Reports shortness of breath at rest pain with respiration Airway is patent Respiratory effort is even, unlabored, Respiratory pattern is regular, symmetrical, Breath sounds are clear bilaterally. GI: No signs and/or symptoms were reported involving the gastrointestinal system. : No signs and/or symptoms were reported regarding the genitourinary system. EENT: No signs and/or symptoms were reported regarding the EENT system. Derm: Skin is intact, Skin is dry, Skin is pale, Skin temperature is warm. Musculoskeletal: Circulation, motion, and sensation intact. Range of motion: intact in all extremities. 03:00 Reassessment: pt reporting blurred vision and dizziness. low blood pressure recorded. jd3 provider notified. new orders received. 03:05 Reassessment: pt denies dizziness and blurred vision at this time. jd3 03:35 Reassessment: Patient and/or family updated on plan of care and expected duration. Pain jd3 level reassessed. Patient is alert, oriented x 3, equal unlabored respirations, skin warm/dry/pink. pt reported pain is now tolerable, but still a sharp 10/10 pain in the middle of his chest. 03:50 Reassessment: pt's IV infiltrated in CT. charge nurse notified. assisted with IV jd3 attempts while in CT. 04:30 Reassessment: Patient and/or family updated on plan of care and expected duration. Pain jd3 level reassessed. Patient is alert, oriented x 3, equal unlabored respirations, skin warm/dry/pink. pt back in room. 05:41 Reassessment: Patient appears in no apparent distress at this time. Patient and/or jd3 family updated on plan of care and expected duration. Pain level reassessed. Patient is alert, oriented x 3, equal unlabored respirations, skin warm/dry/pink. pt reports a lesser pain sensation. 06:29 Reassessment: Patient appears in no apparent distress at this time. Patient and/or jd3 family updated on plan of care and expected duration. Pain level reassessed. Patient is alert, oriented x 3, equal unlabored respirations, skin warm/dry/pink. awaiting admission. 07:00 Reassessment: Patient appears in no apparent distress at this time. Patient and/or ch family updated on plan of care and expected duration. Pain level reassessed. Patient is alert, oriented x 3, equal unlabored respirations, skin warm/dry/pink. General: Appears in no apparent distress. uncomfortable, Behavior is calm, cooperative, appropriate for age. Pain: Complains of pain in chest Pain does not radiate. Pain currently is 7 out of 10 on a pain scale. Quality of pain is described as aching, sharp, throbbing, Pain began suddenly. Neuro: Level of Consciousness is awake, alert, obeys commands, Oriented to person, place, time, situation, Copy Technician are equal bilaterally Moves all extremities. Speech is normal, pt is oriented x4, but gets confused and doesn't always answer questions correctly. Respiratory: Airway is patent Respiratory effort is even, unlabored, Breath sounds are coarse Breath sounds with wheezes bilaterally. Respiratory: Breath sounds with crackles bilaterally. GI: Abdomen is flat, non-distended, Pt is actively vomiting bile, Bowel sounds present X 4 quads. 07:00 : No signs and/or symptoms were reported regarding the genitourinary system. Derm: Skin is fragile, Skin is pale. 07:27 Reassessment: attempted to call report, will call back. 07:58 Reassessment: PT AND UPDATED THAT WE ARE WAITING ON THE FLOOR TO RETURN MY CALL ch FOR REPORT. PT LEANED BACK AND STARTS TO VOMIT. PT STOPS AFTER THREE ROUNDS. STATES HE FEELS BETTER. PT GIVEN CLOTH, STATES HE FEELS BETTER. 08:09 Reassessment: Patient appears in no apparent distress at this time. Patient and/or ch family updated on plan of care and expected duration. Pain level reassessed. Awaiting floor to return my call and take report. pt and family verb understanding. 08:43 Reassessment: Patient appears in no apparent distress at this time. report given to maggie Draper RN. Vital Signs: 02:36 BP 106 / 71; Pulse 105; Resp 16 S; Temp 97.7(O); Pulse Ox 100% on R/A; Weight 53.52 kg bb (R); Height 5 ft. 10 in. (177.80 cm) (R); Pain 10/10; 03:00 BP 51 / 37; Pulse 79; Resp 24 S; Pulse Ox 100% on R/A; Pain 10/; jd3 03:05 BP 67 / 51; Pulse 82; Resp 23 S; Pulse Ox 100% on R/A; Pain 10/10; jd3 03:15 BP 123 / 84; Pulse 98; Resp 17 S; Pulse Ox 99% on R/A; Pain 10/10; jd3 03:30 BP 128 / 96; Pulse 99; Resp 20 S; Pulse Ox 99% on 2 lpm NC; Pain 10/10; jd3 04:45 BP 112 / 75; Pulse 103; Resp 20 S; Pulse Ox 100% on 2 lpm NC; Pain 10/10; jd3 05:09 Weight 57.4 kg (M); jd3 05:41 BP 110 / 83; Pulse 111; Resp 20 S; Pulse Ox 100% on 2 lpm NC; Pain 7/10; jd3 06:29 BP 115 / 64; Pulse 118; Resp 17 S; Pulse Ox 99% on 2 lpm NC; Pain 7/10; jd3 07:01 BP 116 / 82; Pulse 106; Pulse Ox 100% on R/A; ch 07:27 BP 102 / 68; Pulse 114; Resp 24; Pulse Ox 98% on 2 lpm NC; Pain 7/10; ch 05:09 Body Mass Index 18.16 (57.40 kg, 177.80 cm) jd3 ED Course: 02:23 Patient arrived in ED. ds1 02:27 Arnoldo Lopez MD is Attending Physician. tw4 02:34 Triage completed. bb 02:36 Arm band placed on Patient placed in an exam room, on a stretcher, on gambling monitor, bb on pulse oximetry. EKG completed in triage. Results shown to MD. Family accompanied patient. 02:37 Patient has correct armband on for positive identification. Placed in gown. Bed in low jd3 position. Call light in reach. Side rails up X2. Adult w/ patient. quality assurance monitor final on. Pulse ox on. NIBP on. 02:50 Missed attempt(s): 22 gauge in right forearm. Bleeding controlled, band aid applied, yand3 catheter tip intact. Missed attempt(s): 22 gauge in left antecubital area. Bleeding controlled, band aid applied, catheter tip intact. 03:00 Initial lab(s) drawn, by me, sent to lab. Inserted saline lock: 22 gauge in right bb antecubital area, using aseptic technique. Blood collected. 03:09 XRAY Chest (1 view) In Process Unspecified. EDMS 03:10 Darian Robertson, RN is Primary Nurse. jd3 03:12 Patient maintains SpO2 saturation greater than 95% on room air. jd3 03:36 Notified ED physician of a critical lab result(s). Magnesium of 1.1 Dr Lopez notified. bb 04:45 Inserted saline lock: 20 gauge in right EJ, using aseptic technique. placed by Dr. sobeida Lopez. 04:53 Celestine Faustin DO is Hospitalizing Provider. tw4 04:54 CT Chest For PE Angio In Process Unspecified. EDMS 04:55 No provider procedures requiring assistance completed. jd3 06:59 Primary Nurse role handed off by Darian Robertson RN ch 07:00 Madeline Rojas, RN is Primary Nurse. ch 07:17 Report given to Madeline WOO. jd3 08:45 Patient admitted, IV remains in place. ch Administered Medications: 03:00 Drug: NS 0.9% 1000 ml Route: IV; Rate: 1 bolus; Site: right antecubital; jd3 05:40 Follow up: Response: No adverse reaction; IV Status: Completed infusion; IV Intake: jd3 1000ml 03:00 Drug: NS 0.9% 1000 ml Route: IV; Rate: 1 bolus; Site: right antecubital; jd3 05:41 Follow up: Response: No adverse reaction; IV Status: Completed infusion; IV Intake: jd3 1000ml 03:20 Drug: morphine 4 mg Route: IVP; Site: right antecubital; jd3 04:20 Follow up: Response: No adverse reaction; RASS: Alert and Calm (0) jd3 03:20 Drug: Zofran 4 mg Route: IVP; Site: right antecubital; jd3 04:20 Follow up: Response: No adverse reaction jd3 04:50 Drug: morphine 4 mg Route: IVP; Site: right jugular; jd3 05:40 Follow up: Response: No adverse reaction; RASS: Alert and Calm (0) jd3 04:51 Drug: Magnesium Sulfate 2 grams Route: IVPB; Infused Over: 2 hrs; Site: right jugular; jd3 06:50 Follow up: Response: No adverse reaction; IV Status: Completed infusion jd3 05:36 Drug: Heparin (DVT/PE Drip) 18 units/kg/hr - (HEParin 05923 units, D5W 500 ml) jd3 {Co-Signature: jb4 (Kaiden Faye RN).} Route: IV; Rate: calculated rate; Site: right jugular; 08:30 Follow up: IV Status: Infusion continued upon admission 05:39 Drug: Heparin (DVT/PE- Bolus per protocol) - HEParin 80 units/kg {Co-Signature: elver vidales (Kaiden Faye RN).} Route: IVP; Site: right jugular; 06:30 Follow up: Response: No adverse reaction jd3 07:10 Drug: Zofran 4 mg {Note: given in R EJ.} Route: IVP; Site: Other; 08:14 Follow up: Response: No adverse reaction Intake: 05:40 IV: 1000ml; Total: 1000ml. jd3 05:41 IV: 1000ml; Total: 2000ml. jd3 Outcome: 04:54 Decision to Hospitalize by Provider. tw4 08:44 Admitted to Med/surg accompanied by nurse, room 425, with chart, Report called to Baron 08:44 Condition: stable 08:44 Instructed on the need for admit. 09:20 Patient left the ED. Signatures: Dispatcher [employer] EDMS Madeline Rojas, Yanni Beck RN, ch ds1 Emliee Mccall RN RN bb Davies, Jonathon, RN RN jd3 Wadley, Terrence, MD MD tw4 Kaiden Faye RN jb4 Corrections: (The following items were deleted from the chart) 03:43 02:45 Cardiovascular: Heart tones S1 S2 present Capillary refill < 3 seconds Patient's jd3 skin is warm and dry. Rhythm is sinus tachycardia jd3 03:43 02:45 Respiratory: Reports shortness of breath at rest pain with respiration Airway is jd3 patent Respiratory effort is even, unlabored, Respiratory pattern is regular, symmetrical, Breath sounds are clear bilaterally. jd3 03:44 03:43 BP 128 / 96; Pulse 99bpm; Resp 20bpm; Spontaneous; Pulse Ox 99% 2 lpm Nasal jd3 Cannula; Pain 06/18; jd3 07:58 07:01 PMHx: currently getting treatment for lung ca-2019; [facility]
--- NOTE | 2019-06-01 05:20 | P.HP ---
Certification for Inpatient Patient admitted to: Observation With expected LOS: <2 Midnights Patient will require the following post-hospital care: Other Practitioner: I am a practitioner with admitting privileges, knowledge of patient current condition, hospital course, and medical plan of care. Services: Services provided to patient in accordance with Admission requirements found in Title 42 Section 412.3 of the Code of Federal Regulations Patient History Date of Service: 06/01/19 Primary Care Provider: Dr. Smyth; Pulmonary-Dr. Brenner; Oncology-Dr. Rolon Reason for admission: Shortness of breath History of Present Illness: 59-year-old male presented to the emergency room with acute shortness of breath. 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 Patient also with history of COPD, tobacco abuse, hypertension, carotid arterial disease, and anemia of chronic disease. Patient reported acute shortness of breath early this morning around 1:30 a.m.. He was in the process of going to sleep. Shortness of breath was acute. He reported some chest pain to the center of the chest is well. Prior to this he had a mild headache. He denied any fever, chills. He came to the ER for further evaluation. In the ER patient evaluated. Patient slightly tachycardic with a rate of 105. Blood pressure 112/75. Oxygen saturations within normal range. Lab showed hemoglobin of 10.4, white count 7.9. Sodium 134, potassium 3.6. BUN creatinine within normal range. Magnesium level 1.1. Troponin less than 0.02. INR 1.06. CT of the chest pending at this time. CT angiogram of the chest could not be done as the patient had poor IV access. ER provider was suspicious for pulmonary embolism due to his multiple risk factors. Heparin to be started. Patient was admitted for further evaluation and treatment. When I saw the patient the ER, he appeared comfortable after getting IV pain medication. He appeared stable. He did not appear in any respiratory distress. Patient reports getting chemotherapy and radiation over the last several months. He is in the process of following up with oncology soon to go over recent MRI reports. MRI brain shows new mass and metastasis to the left frontal lobe. MRI abdomen shows liver and adrenal mass suspected for metastasis. Allergies codeine Adverse Reaction (Verified 07/25/18 12:09) Nausea/Vomiting hydromorphone Adverse Reaction (Verified 07/25/18 12:09) Nausea/Vomiting Home medications list reviewed: Yes Home Medications: Albuterol Sulfate [Proair Hfa] 8.5 gm IH TID PRN #1 hfa.aer.ad 07/15/18 Budesonide/Formoterol Fumarate [Symbicort 160-4.5 Mcg Inhaler] 2 puff IH BID #1 hfa.aer.ad 07/15/18 Pantoprazole [Protonix Tab*] 40 mg PO DAILY #30 tab 07/15/18 Thiamine HCl [Vitamin B-1*] 100 mg PO DAILY #90 tablet 07/15/18 Acetaminophen [Tylenol Extra Strength] 500 mg PO PRN PRN 07/25/18 Demeclocycline HCl [Declomycin] 300 mg PO BID #14 tablet 08/04/18 Methylprednisolone [Medrol dosepack] 4 mg PO DIRECTED #1 jack 08/04/18 Sodium Chloride Tab [Sodium Chloride*] 2 gm PO BID #28 tab 08/04/18 - Past Medical/Surgical History Diabetic: No -: COPD -: Small-cell lung cancer with metastasis to the brain/liver/adrenal -: Chronic back pain -: Tobacco abuse -: Carotid arterial disease -: Hypertension -: bowel resection w/colostomy 2010 -: rt foot fx-1970 -: revision of colostomy 2014 -: Neck surgery-laminectomy 2015 Psychosocial/ Personal History: Patient is - Family History Mother -: Cancer (Lung cancer) Brother -: Hypertension, Diabetes Father -: Cancer (Lung cancer) Notes: father and mother both lung cancer - Social History Smoking Status: Heavy Tobacco smoker (>10 cigarettes/day) Counseled patient to stop smoking for: less than 10 minutes Smoking therapy provided: Yes Patient receptive to therapy: Yes Alcohol use: No CD- Drugs: No Caffeine use: No Place of Residence: Home Review of Systems General: As per HPI Eyes: Unremarkable ENT: Unremarkable Respiratory: Shortness of Breath, As per HPI Cardiovascular: Light Headedness, As per HPI Gastrointestinal: Unremarkable Genitourinary: Unremarkable Musculoskeletal: Unremarkable Integumentary: Unremarkable Neurological: Unremarkable Lymphatics: Unremarkable Physical Examination - Physical Exam General: Alert, In no apparent distress, Oriented x3, Cooperative, Cachectic, Other (Patient appears pale.) HEENT: Atraumatic, Normocephalic, Mucous membr. moist/pink (Dry mucous membranes ) Neck: Supple, No Thyromegaly Respiratory: Clear to auscultation bilaterally, Normal air movement Cardiovascular: Normal pulses, Regular rate/rhythm Gastrointestinal: Normal bowel sounds, Soft and benign, Non-distended, No tenderness, No masses, No rebound, No guarding Musculoskeletal: No erythema, No tenderness, No warmth Integumentary: No tenderness/swelling, No erythema, No warmth, No cyanosis Neurological: Normal speech, Normal strength at 5/5 x4 extr, Normal tone, Normal affect - Studies Laboratory Data (last 24 hrs) 06/01/19 03:00: PT 12.5, INR 1.06 06/01/19 03:00: WBC 7.9, Hgb 10.4 L, Hct 30.2 L, Plt Count 184 06/01/19 03:00: Sodium 134 L, Potassium 3.6, BUN 16, Creatinine 1.02, Glucose 102, Magnesium 1.1 L* D, Total Bilirubin 0.3, AST 13 L, ALT 15, Alkaline Phosphatase 56 Assessment and Plan - Plan Impression: Shortness of breath, chest pain suspect pulmonary embolism COPD Small-cell lung cancer with metastasis to the brain/liver/adrenal gland Tobacco abuse Hypomagnesia Anemia likely of chronic disease Plan: Shortness of breath, chest pain suspect pulmonary embolism: Patient admitted for further evaluation and treatment. Patient has multiple risk factors for pulmonary embolism. Patient started on heparin protocol for pulmonary embolism. Will need to get another IV line in to obtain CT chest-PE protocol to further evaluate. Will continue with COPD medication. Respiratory to maintain sats above 93%. Will obtain echocardiogram to further assess. Continue to monitor cardiac enzymes and telemetry. Consult pulmonology to further evaluate. Await recommendation. Daytime hospitalist will continue his care. Anticipate possible discharge in the next 48 hr pending clinical improvement and findings. COPD: Continue with COPD medication-Brovana/Xopenex/Atrovent. Maintain sats above 93%. Pulmonology consulted to further address. Small-cell lung cancer with metastasis to the brain/liver/adrenal gland: Recent repeat MRI brain shows metastasis to the brain. Recent repeat MRI abdomen shows liver and adrenal metastasis. Patient reports having received chemotherapy and radiation in the past. He is in the process of following up with Oncology to go over recent MRI reports. Await further recommendation. Will need to address advanced directives in detail with the patient. Will have social work help in this process. May need to contact Oncology for further recommendation and address plan of care for the future. Tobacco abuse: Will provide nicotine patch. Encourage tobacco cessation. Hypomagnesia: Replace magnesium. Replacement protocol in place. Anemia likely of chronic disease: Will monitor hemoglobin. Will check iron and B12 studies. Patient may require supplementation. Discharge Plan: Home Plan to discharge in: 48 Hours - Advance Directives Does patient have a Living Will: No Does patient have a Durable POA for Healthcare: No - Code Status/Comfort Care Code Status Assessed: No (Patient to fully address with manager social responsibility.) Time Spent Managing Pts Care (In Minutes): 55
[2019-06-01 05:22] LABS: Arterial Blood Carboxyhemoglob 1.9 % (0-1.5); Blood Gas Oxyhemoglobin 91.1 % (94-97); Blood O2 Saturation 93.7 % (92-98.5)
[2019-06-01] MEDS ORDERED: HEPARIN 5000 UNIT/ML 1 ML VIAL ONE (05:25)
[2019-06-01] MEDS ORDERED: HEPARIN/D5W 25,000 UNIT/500 ML BAG IV ONE (05:26)
--- NOTE | 2019-06-01 08:21 | RAD REPORT ---
EXAM DESCRIPTION: RAD - Chest Single View - 06/01/2019 3:01 am CLINICAL HISTORY: CHEST PAIN Chest pain. COMPARISON: Chest Single View dated 07/27/2018; Chest Single View dated 07/25/2018; Chest Single Vie w dated 07/09/2018; Chest Single View dated 06/10/2016 FINDINGS: Portable technique limits examination quality. The lungs are emphysematous but grossly clear. The heart is normal in size. No displaced fractures. IMPRESSION: Prominent COPD.
[2019-06-01 09:26] VITALS: BMI 17.0
[2019-06-01] MEDS ORDERED: ONDANSETRON 4 MG/2 ML VIAL IV PRN (09:26)
[2019-06-01] MEDS ORDERED: TRAMADOL HCL 50 MG TAB PO PRN (09:26)
[2019-06-01] MEDS: ARFORMOTEROL TARTRATE 15 MCG/2 ML VIAL.NEB NEB SCH ×2 (09:26→20:00)
[2019-06-01] MEDS ORDERED: MORPHINE 2 MG/ML SYR IV PRN (09:26)
[2019-06-01] MEDS ORDERED: IPRATROPIUM BROM 0.5MG/2.5ML NEB PRN (09:26)
[2019-06-01] MEDS ORDERED: LEVALBUTEROL 0.63 MG/3 ML NEB NEB PRN (09:26)
[2019-06-01] MEDS: NICOTINE 21 MG/PAT TD SCH (09:26)
[2019-06-01] MEDS ORDERED: ACETAMINOPHEN 500 MG TAB PO PRN (09:26)
[2019-06-01] MEDS ORDERED: HEPARIN/D5W 25,000 UNIT/500 ML BAG IV SCH (09:26)
--- NOTE | 2019-06-01 09:58 | RAD REPORT ---
EXAM DESCRIPTION: CT chest angiography with intravenous contrast CLINICAL HISTORY: 59-year-old male with chest pain. TECHNIQUE: Following the administration of intravenous contrast, multiple high-resolution axial imag es of the chest were performed followed by sagittal and coronal reconstructed images. The CT study is performed according to ALARA (as low as reasonably achievable) or ALARA/IMAGE GENTLY, with automatic adjustment of mA and/or kV according to patient size. Performed on: 06/01/2019 at 4:10 AM COMPARISON: Prior CT scan of the chest performed on 05/20/2019 FINDINGS: Please note that the patient's IV failed and approximately 40 mL of IV contrast infiltrate d into the right antecubital fossa as per the technologist. There is no contrast opacification of the pulmonary arteries on this examination. This examination is completely nondiagnostic for evaluation of pulmonary emboli. The mediastinal vessels are normal in caliber and contour. There is no evidence of aortic aneurysm. The lungs are well expanded. There is mild, grossly stable airspace consolidation along the posterior medial right lower lobe likely due to atelectasis and/or fibrosis. There is also mild atelectasis or inflammatory changes in the right perihilar region. No dense airspace consolidation with air broncho grams is identified. There are no pleural effusions. There is no pneumothorax. The lungs are otherwis e essentially clear. The heart is normal in size. There is no pericardial effusion. There is no evidence of hilar, mediastinal or axillary lymphadenopathy. No acute osseous abnormality is identified. There is irregularity of the mid sternum on the sagittal projection likely related to motion artifact. A fracture is considered less likely. The visualized upper abdominal structures are unremarkable. There is a subtle area of decreased atten uation along the periphery of the right hepatic lobe better appreciated on the prior CT scan performe d on 05/20/2019. IMPRESSION: 1. Nondiagnostic study for pulmonary embolism. There is no enhancement of the pulmonary arteries on this examination as the patient's IV infiltrated into the right antecubital fossa. 2. Probable atelectasis and/or fibrosis along the posterior medial right lower lobe and right perihil ar region. 3. Findings are otherwise stable when compared to the prior study performed on 06/01/2019. Electronically signed by: Maddison Liao DO 06/01/2019 5:40 AM CDT Due to temporary technical issues with the PACS/Fluency reporting system, reports are being signed by the in house radiologist as a courtesy to ensure prompt reporting. The interpreting radiologist is f ully responsible for the content of the report.
--- NOTE | 2019-06-01 11:56 | P.CNS ---
Date of Consult: 06/01/19 Primary Care Provider: Dr. Smyth; Pulmonary-Dr. Brenner; Oncology-Dr. Rolon Chief Complaint: Shortness of breath and chest pain History of Present Illness: Patient is 59 years of age with a history of metastatic small cell cancer he was treated 9 months ago as following up by Oncology was admitted with a sudden onset of retrosternal chest pain a CT scan was nondiagnostic had worsening shortness of breath he has a history of COPD significant weight loss compliant with his inhalers Allergies codeine Adverse Reaction (Verified 07/25/18 12:09) Nausea/Vomiting hydromorphone Adverse Reaction (Verified 07/25/18 12:09) Nausea/Vomiting Home Medications: Albuterol Sulfate [Proair Hfa] 2 puff IH DAILY PRN 06/01/19 Budesonide/Formoterol Fumarate [Symbicort 160-4.5 Mcg Inhaler] 2 puff IH BID Meclizine HCl 1 tab PO TID PRN 06/01/19 - Past Medical/Surgical History Diabetic: No -: COPD -: Small-cell lung cancer with metastasis to the brain/liver/adrenal -: Chronic back pain -: Tobacco abuse -: Carotid arterial disease -: Hypertension -: bowel resection w/colostomy 2010 -: rt foot fx-1970 -: revision of colostomy 2014 -: Neck surgery-laminectomy 2015 Psychosocial/ Personal History: Patient is - Family History Mother Medical History: Cancer (Lung cancer) Brother Medical History: Hypertension, Diabetes Father Medical History: Cancer (Lung cancer) Notes: father and mother both lung cancer - Social History Smoking Status: Unknown if ever smoked Alcohol use: No CD- Drugs: No Caffeine use: No Place of Residence: Home Review of Systems General: Weakness, Other (Weight loss) Respiratory: Cough, Shortness of Breath Cardiovascular: Chest Pain Physical Examination Temp Pulse Resp BP Pulse Ox 98.7 F 117 H 20 105/79 100 06/01/19 09:15 06/01/19 09:15 06/01/19 09:15 06/01/19 09:15 06/01/19 09:15 General: Alert, Oriented x3, Mild distress Respiratory: Clear to auscultation bilaterally, Diminished Cardiovascular: No edema, Regular rate/rhythm, Normal S1 S2 Gastrointestinal: Normal bowel sounds, Soft and benign Laboratory Data (last 24 hrs) 06/01/19 03:00: PT 12.5, INR 1.06 06/01/19 03:00: WBC 7.9, Hgb 10.4 L, Hct 30.2 L, Plt Count 184 06/01/19 03:00: Sodium 134 L, Potassium 3.6, BUN 16, Creatinine 1.02, Glucose 102, Magnesium 1.1 L* D, Total Bilirubin 0.3, AST 13 L, ALT 15, Alkaline Phosphatase 56 - Problems (1) Chest pain Current Visit: Yes Status: Acute Plan: Patient is 59 years of age history of small-cell lung cancer treated 9 months ago is scheduled to have another treatment CT scan shows a significant reduction in the mass in the right lung strongly suspect that he may have pulmonary embolism he is got all the risk factors V/Q scan ordered including lower extremity Doppler and 2D echocardiogram change to Lovenox he is hemodynamically stable (2) COPD (chronic obstructive pulmonary disease) Current Visit: Yes Status: Acute Plan: Continue with bronchodilators and low-dose steroids oxygenation satisfactory
[2019-06-01] MEDS: PANTOPRAZOLE 40MG TABLET PO SCH (12:21)
[2019-06-01] MEDS: HYDROCODONE/APAP 7.5/325 MG TAB PO PRN (12:22)
[2019-06-01] MEDS: predniSONE 10 MG TAB PO SCH ×2 (12:22→21:42)
--- NOTE | 2019-06-01 13:07 | RAD REPORT ---
EXAM DESCRIPTION: US - Extrem Venous W Compress Mauricio - 06/01/2019 12:56 pm CLINICAL HISTORY: r/o dvt Bilateral leg edema and swelling. COMPARISON: EXT VENOUS UNI LTD dated 10/11/2013 TECHNIQUE: Real-time sonographic interrogation of the left and right lower extremity deep venous sys tems was performed. FINDINGS: Normal compressibility, flow augmentation, phasic flow and spontaneous flow is identified in both the left and right lower extremity deep venous systems. IMPRESSION: No sonographic evidence of left or right lower extremity deep venous thrombosis.
--- NOTE | 2019-06-01 13:36 | EKG ---
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
--- NOTE | 2019-06-01 13:45 | RAD REPORT ---
EXAM DESCRIPTION: NM - Vent Perfusion VQ Scan - 06/01/2019 1:31 pm CLINICAL HISTORY: R/o PE Chest pain, shortness of breath COMPARISON: FLUORO-GUIDE FOR BRONCH UPT1HR dated 07/25/2018 TECHNIQUE: 20.7mCi Xe-133 gas inhaled and 7.5mCi Tc-MAA IV. Planar ventilation scan was performed in posterior projection after Xe-133 gas inhalation (wash-in, e quilibrium, and wash-out phases) followed by perfusion scan with Tc-MAA IV in multiple projections. Examination is correlated with recent chest radiograph. FINDINGS: Homogeneous ventilation is seen with moderate air trapping. Several segmental defects are present on perfusion which are mismatched. IMPRESSION: High probability of pulmonary thromboembolism.
[2019-06-01] MEDS: ENOXAPARIN 60 MG/0.6 ML SQ SCH ×2 (13:46→21:42)
[2019-06-01] MEDS ORDERED: NA CHLORIDE 0.9% 500 ML IV ONE (15:21)
--- NOTE | 2019-06-01 15:45 | ECHO ---
HEIGHT: 5 ft 10 in WEIGHT: 119 lb 0 oz DATE OF STUDY: 06/01/[address]: Celestine Faustin DO 2-DIMENSIONAL: YES M.MODE: YES DOPPLER: YES COLOR FLOW: YES TDS: NO PORTABLE: NO DEFINITY: NO BUBBLE STUDY: NO DIAGNOSIS: SHORTNESS OF BREATH, LUNG CANCER CARDIAC HISTORY: CATHERIZATION: NO SURGERY: NO PROSTHETIC VALVE: NO PACEMAKER: NO MEASUREMENTS (cm) DIASTOLIC (NORMALS) SYSTOLIC (NORMALS) IVSd 0.8 (0.6-1.2) LA Diam 2.1 (1.9-4.0) LVEF 59% LVIDd 4.3 (3.5-5.7) LVIDs 3.0 (2.0-3.5) %FS 31% LVPWd 0.9 (0.6-1.2) Ao Diam 3.1 (2.0-3.7) 2 DIMENSIONAL ASSESSMENT: RIGHT ATRIUM: NORMAL LEFT ATRIUM: NORMAL RIGHT VENTRICLE: NORMAL LEFT VENTRICLE: NORMAL TRICUSPID VALVE: NORMAL MITRAL VALVE: NORMAL PULMONIC VALVE: NORMAL AORTIC VALVE: NORMAL PERICARDIAL EFFUSION: NONE AORTIC ROOT: NORMAL LEFT VENTRICULAR WALL MOTION: NORMAL. DOPPLER/COLOR FLOW: NORMAL. COMMENTS: NORMAL 2D ECHO WITH DOPPLER. TECHNOLOGIST: CHINYERE JONES
[2019-06-01 16:39] LABS: Urine Appearance CLEAR; Urine Bilirubin NEGATIVE (NEG); Urine Blood NEGATIVE (NEG); Urine Color YELLOW; Urine Glucose NEGATIVE (NEG); Urine Protein NEGATIVE (NEG); Urine Specific Gravity 1.025 (1.005-1.030); Urine Urobilinogen 0.2 mg/dL (0.2-1.0)
[2019-06-01 16:40] LABS: Urine Microscopic Reflex NO UMIC
--- NOTE | 2019-06-01 17:38 | RAD REPORT ---
EXAM DESCRIPTION: RAD - Chest Single View - 06/01/2019 5:32 pm CLINICAL HISTORY: Device placement PICC line placement IMPRESSION: PICC line with its tip in the distal superior vena cava
[2019-06-01] MEDS ORDERED: ALBUTEROL INHALER 60 PUFF/8 GM IH PRN (17:59)
[2019-06-01] MEDS ORDERED: MECLIZINE HCL 12.5 MG TAB PO PRN (17:59)
[2019-06-01] MEDS: HOME MED 1 EA UNK (Budesonide/Formoterol Fumarate [Symbicort 160-4.5 Mcg Inhaler] 2 PUFF) IH SCH (21:00)
[2019-06-01] MEDS ORDERED: POTASSIUM CL SA 10 MEQ TAB PO ONE (21:00)
[2019-06-01 21:14] LABS: CKMB Creatine Kinase MB 6.5 ng/mL (0.3-3.6); Creatine Phosphokinase 440 U/L (39-308); Ferritin 359.3 ng/mL (26-388); Thyroid Stimulating Hormone 0.703 uIU/mL (0.360-3.740); Transferrin 142 mg/dL (200-360); Troponin I < 0.02 ng/mL (0.0-0.045)
[2019-06-02] MEDS: HYDROCODONE/APAP 7.5/325 MG TAB PO PRN (00:03)
[2019-06-02 06:18] LABS: Absolute Lymphocytes (CBC) 0.8 K/uL (0.7-4.9); Basophils % 0.4 % (0-1.3); Lymphocytes % 7.8 % (15.3-44.8); RBC Red Blood Cell Count 2.85 M/uL (4.33-5.43)
[2019-06-02] MEDS: PANTOPRAZOLE 40MG TABLET PO SCH (06:27)
[2019-06-02 06:28] LABS: BUN Blood Urea Nitrogen 14 mg/dL (7-18); Bicarbonate 24 mmol/L (21-32); Glucose Level 143 mg/dL (74-106); Magnesium 1.9 mg/dL (1.8-2.4); Potassium 4.4 mmol/L (3.5-5.1); Sodium Level 135 mmol/L (136-145)
[2019-06-02] MEDS: ARFORMOTEROL TARTRATE 15 MCG/2 ML VIAL.NEB NEB SCH (07:38)
[2019-06-02 08:29] VITALS: TEMP 99.2
--- NOTE | 2019-06-02 08:40 | P.PN ---
Subjective Date of Service: 06/02/19 Primary Care Provider: Dr. Smyth; Pulmonary-Dr. Brenner; Oncology-Dr. Rolon Chief Complaint: Pulmonary embolism Patient's chest pain is better still has some shortness of breath V/Q scan high probability no evidence of DVT is echocardiogram is normal blood pressure is slightly low Review of Systems General: Weakness Respiratory: Shortness of Breath Physical Examination - Vital Signs Temperature: 99.2 F Blood Pressure: 81/58 Pulse: 86 Respirations: 18 Pulse Ox (%): 97 - Physical Exam General: Alert, Oriented x3, Mild distress Respiratory: Clear to auscultation bilaterally Cardiovascular: No edema, Regular rate/rhythm Assessment & Plan - Problems (Diagnosis) (1) COPD (chronic obstructive pulmonary disease) Current Visit: Yes Status: Acute Plan: Continue with bronchodilators and low-dose steroids oxygenation satisfactory he may qualify for home O2 check room air pulse ox patient needs refills for his Symbicort and pro air continue with prednisone 10 mg once a day Qualifiers: COPD type: unspecified COPD Qualified Code(s): J44.9 - Chronic obstructive pulmonary disease, unspecified (2) Pulmonary embolism Current Visit: Yes Status: Acute Plan: Patient's V/Q scan shows high probability he has risk factor for pulmonary embolism 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 Eliquis 10 mg twice a day 1st 7 days and then 5 mg twice a day most likely indefinite anticoagulation as scheduled to restart chemotherapy patient is mildly anemic his blood pressure is slightly low echocardiogram is normal
[2019-06-02] MEDS ORDERED: APIXABAN 5 MG TABLET PO SCH (09:00)
[2019-06-02] MEDS: NICOTINE 21 MG/PAT TD SCH (09:00)
[2019-06-02] MEDS: HOME MED 1 EA UNK (Budesonide/Formoterol Fumarate [Symbicort 160-4.5 Mcg Inhaler] 2 PUFF) IH SCH (09:00)
[2019-06-02] MEDS: predniSONE 10 MG TAB PO SCH (09:46)
[2019-06-02 11:15] VITALS: O2SAT 97
[2019-06-02 12:12] VITALS: BP 88/54
--- NOTE | 2019-06-02 12:37 | P.SSS ---
Patient History Date of Service: 06/02/19 Primary Care Provider: Dr. Smyth; Pulmonary-Dr. Brenner; Oncology-Dr. Rolon Reason for admission: Pulmonary embolism History of Present Illness: 59-year-old male presented to the emergency room with acute shortness of breath. 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 Patient also with history of COPD, tobacco abuse, hypertension, carotid arterial disease, and anemia of chronic disease. Patient reported acute shortness of breath early this morning around 1:30 a.m.. He was in the process of going to sleep. Shortness of breath was acute. He reported some chest pain to the center of the chest is well. Prior to this he had a mild headache. He denied any fever, chills. He came to the ER for further evaluation. In the ER patient evaluated. Patient slightly tachycardic with a rate of 105. Blood pressure 112/75. Oxygen saturations within normal range. Lab showed hemoglobin of 10.4, white count 7.9. Sodium 134, potassium 3.6. BUN creatinine within normal range. Magnesium level 1.1. Troponin less than 0.02. INR 1.06. CT of the chest pending at this time. CT angiogram of the chest could not be done as the patient had poor IV access. ER provider was suspicious for pulmonary embolism due to his multiple risk factors. Heparin to be started. Patient was admitted for further evaluation and treatment. When I saw the patient the ER, he appeared comfortable after getting IV pain medication. He appeared stable. He did not appear in any respiratory distress. Patient reports getting chemotherapy and radiation over the last several months. He is in the process of following up with oncology soon to go over recent MRI reports. MRI brain shows new mass and metastasis to the left frontal lobe. MRI abdomen shows liver and adrenal mass suspected for metastasis. Allergies codeine Adverse Reaction (Verified 07/25/18 12:09) Nausea/Vomiting hydromorphone Adverse Reaction (Verified 07/25/18 12:09) Nausea/Vomiting Home Medications: Meclizine HCl 1 tab PO TID PRN 06/01/19 Albuterol Sulfate [Proair Hfa] 2 puff IH DAILY PRN 90 Days #3 hfa.aer.ad Apixaban [Eliquis] 10 mg PO BID 30 Days #74 tablet 06/02/19 Budesonide/Formoterol Fumarate [Symbicort 160-4.5 Mcg Inhaler] 2 puff IH BID 90 Days #3 hfa.aer.ad 06/02/19 predniSONE [Deltasone*] 10 mg PO BID #30 tab 06/02/19 - Past Medical/Surgical History Has patient received pneumonia vaccine in the past: No Diabetic: No -: COPD -: Small-cell lung cancer with metastasis to the brain/liver/adrenal -: Chronic back pain -: Tobacco abuse -: Carotid arterial disease -: Hypertension -: bowel resection w/colostomy 2010 -: rt foot fx-1970 -: revision of colostomy 2014 -: Neck surgery-laminectomy 2015 Psychosocial/ Personal History: Patient is - Family History Mother -: Cancer (Lung cancer) Brother -: Hypertension, Diabetes Father -: Cancer (Lung cancer) Notes: father and mother both lung cancer - Social History Smoking Status: Heavy Tobacco smoker (>10 cigarettes/day) Alcohol use: No CD- Drugs: No Caffeine use: No Place of Residence: Home Review of Systems 10-point ROS is otherwise unremarkable Physical Examination - Vital Signs Temperature: 99.2 F Blood Pressure: 88/54 Pulse: 86 Respirations: 18 Pulse Ox (%): 98 - Physical Exam General: Alert, In no apparent distress HEENT: Atraumatic, PERRLA, Mucous membr. moist/pink, EOMI, Sclerae nonicteric Neck: Supple, 2+ carotid pulse no bruit, No LAD, Without JVD or thyroid abnormality Respiratory: Clear to auscultation bilaterally, Normal air movement Cardiovascular: Regular rate/rhythm, Normal S1 S2 Gastrointestinal: Normal bowel sounds, No tenderness Musculoskeletal: No tenderness Integumentary: No rashes Neurological: Normal gait, Normal speech, Normal strength at 5/5 x4 extr, Normal tone, Normal affect Lymphatics: No axilla or inguinal lymphadenopathy - Diagnosis (Problem(s)) (1) Pulmonary embolism Current Visit: Yes Status: Acute Qualifiers: Pulmonary embolism type: other Chronicity: acute Acute cor pulmonale presence: without acute cor pulmonale Qualified Code(s): I26.99 - Other pulmonary embolism without acute cor pulmonale (2) Small cell lung cancer Current Visit: No Status: Chronic (3) COPD (chronic obstructive pulmonary disease) Onset Date: 06/11/16 Current Visit: No Status: Chronic Qualifiers: COPD type: unspecified COPD Qualified Code(s): J44.9 - Chronic obstructive pulmonary disease, unspecified (4) Carotid artery disease Onset Date: 07/28/18 Current Visit: No Status: Chronic Qualifiers: Carotid artery disease type: stenosis Laterality: bilateral Qualified Code(s): I65.23 - Occlusion and stenosis of bilateral carotid arteries (5) HTN (hypertension) Onset Date: 07/28/18 Current Visit: No Status: Chronic Qualifiers: Hypertension type: essential hypertension Treatment Summary: Overall during the hospital stay patient main stable Patient was initially admitted to the hospital for shortness of breath was concerning for pulmonary embolism. CTA was done which was inconclusive given the fact that patient was not able to get IV contrast as he has poor IV access. A VQ scan was done here in the hospital. Which was consistent with high probability of pulmonary embolism. Patient's PE was most likely secondary to hypercoagulable state with cancer and immobility at home. Patient was started on Eliquis here in the hospital and did well. Patient then was discharged home under stable condition and home health was arranged for him to go to the house. Pt also had Eliquis Sent to the pharmacy - Disposition Disposition: ROUTINE DISCHARGE Condition: GOOD Diet: Regular Activity: Ad mignon
== END 2019-06-02 15:24 | disposition home or self-care (01) ==
LOC: ER 02:20 → ERHOLD 05:06 → 4TH 08:48
PROVIDERS: ADMIT Family Medicine; ATTEND Family Medicine
PROC: 02HV33Z Insertion of Infusion Device into Superior Vena Cava, Percutaneous Approach (ICD-10-PCS; principal; 2019-06-01)
DX: I26.99 Other pulmonary embolism without acute cor pulmonale (principal); J44.9 Chronic obstructive pulmonary disease, unspecified; C34.90 Malignant neoplasm of unspecified part of unspecified bronchus or lung; C78.7 Secondary malignant neoplasm of liver and intrahepatic bile duct; C79.31 Secondary malignant neoplasm of brain; C79.70 Secondary malignant neoplasm of unspecified adrenal gland; E83.42 Hypomagnesemia; D63.8 Anemia in other chronic diseases classified elsewhere; I65.23 Occlusion and stenosis of bilateral carotid arteries; F17.210 Nicotine dependence, cigarettes, uncomplicated
CPT/HCPCS: 96365; 96361; 96368; 93005; 93306; 85025 ×2; 80048 ×2; 36415 ×2; 83735 ×3; 82550; 85610; 80076; 85730; 84443; 81003; 84484 ×2; 82553; 84439; 82728; 82607; 83540; 83880; 84466; 71275; 71045 ×2; 93970; 97116; 97161; 94640 ×3; 82805; 78582; 96375; 99285; 36569; Q9967; J1644; J7512 ×3; J1650 ×2; J3475 ×2; J7605 ×2; J7030; J2405 ×2; A9558; A9540; G0378 ×3

== ENCOUNTER 2019-07-16 08:35 | Day surgery (SDC) | payer OTHER ==
[2019-07-16] MEDS ORDERED: LIDOCAINE 2% MPF 5 ML VIAL ONE (08:36)
[2019-07-16] MEDS ORDERED: MIDAZOLAM HCL 2 MG/2 ML INJ ONE (08:36)
[2019-07-16] MEDS ORDERED: FENTANYL CITR 100 MCG/2 ML ONE (08:36)
[2019-07-16] MEDS ORDERED: PROPOFOL 200 MG/20 ML VIAL IV ONE (08:36)
[2019-07-16] MEDS ORDERED: NS 0.9% VIAL 20 ML ONE (08:42)
[2019-07-16] MEDS ORDERED: LIDOCAINE 1% 20 ML MDV ONE (08:43)
[2019-07-16] MEDS ORDERED: HEPARIN 5000 UNIT/ML 1 ML VIAL ONE (08:43)
[2019-07-16] MEDS ORDERED: CEFAZOLIN/SWI 1gm 1 GM/10 ML SYR ONE (08:58)
[2019-07-16] MEDS ORDERED: Ringers Lactate 1,000 ML IV ONE (08:58)
[2019-07-16] MEDS ORDERED: NS 0.9% VIAL 10 ML ONE ×2 (09:02→09:59)
[2019-07-16] MEDS ORDERED: Phenylephrine HCl 10 MG/ML 1 ML VIAL ONE (09:02)
[2019-07-16 09:14] LABS: Absolute Lymphocytes (CBC) 2.2 K/uL (0.7-4.9); Basophils % 0.3 % (0-1.3); Hematocrit 31.4 % (39.6-49.0); Lymphocytes % 31.5 % (15.3-44.8); MPV 8.7 fL (7.6-11.3); RBC Red Blood Cell Count 3.44 M/uL (4.33-5.43)
[2019-07-16] MEDS ORDERED: EPHEDRINE SULF 50 MG/ML VIAL ONE (09:59)
[2019-07-16] MEDS ORDERED: Mastisol Adhesive Liq ONE (10:17)
--- NOTE | 2019-07-16 10:34 | RAD REPORT ---
EXAM DESCRIPTION: RAD - Fluoroscopy <1 Hour - 07/16/2019 10:28 am CLINICAL HISTORY: Device placement central venous catheter placement FINDINGS: A central venous catheter was placed into the superior vena cava.4 fluoroscopic spot image s are submitted. The examination was performed by Dr. Narayan Fluoroscopy time 0.6 minutes
--- NOTE | 2019-07-16 11:04 | RAD REPORT ---
EXAM DESCRIPTION: Reyes Single View07/16/2019 10:54 am CLINICAL HISTORY: Device placement/central venous catheter placement FINDINGS: Tip of a central venous catheter lies within the superior vena cava. A pneumothorax is not present. The heart is normal size IMPRESSION: Central venous catheter with its tips in the superior vena cava
[2019-07-16 12:45] VITALS: BP 95/67; TEMP 97; O2SAT 100
--- NOTE | 2019-07-16 22:23 | OP ---
Date of Procedure: 07/16/2019 Surgeon: Miller Narayan MD Dry Janitor: JENNIFER Snider. Preoperative Diagnosis: Lung cancer metastatic. Postoperative Diagnosis: Lung cancer metastatic. Procedure: Placement of right IJ Port-A-Cath device and interpretation of intraoperative fluoroscopy . Estimated Blood Loss: Minimal. Specimen: None. Findings: Normal anatomy. Anesthesia: MAC. Complications: None. Disposition: The patient tolerated the procedure in stable condition, taken to Recovery in good gene ral condition. Procedure In Detail: Patient was brought to the OR and placed in supine position. MAC anesthesia be gun. Patient was prepped and draped in usual sterile fashion. Lidocaine 1% infiltrated locally. An 18-gauge needle was used to access the right IJ vein. Guidewire was passed. Position was confirmed with fluoroscopy. A 3 cm counter incision made on the right anterior chest. Pocket was created. T unneling device was used to tunnel the catheter between the 2 wounds. Then, Seldinger technique used and tip of the catheter under fluoroscopy placed in the SVC. The catheter cut to appropriate size a ttached to the Port-A-Cath device. Port-A-Cath device was attached to the subcutaneous tissue with 3 -0 Vicryl and then 2-0 chromic used to approximate the subcutaneous tissue and closed skin. Catheter flushed with heparin and packed with heparin with good blood flow. Sterile dressing was applied. P atient was awakened and taken to Recovery in good general condition. Chest x-ray has been ordered. If okay, the patient will be discharged to home. Disposition: Home. Condition: Stable. Discharge Instructions: Resume home medications and diet. Activity as tolerated. No heavy lifting. Remove outer dressing in 2 days. Shower. Keep wound clean and dry. Follow up in my office in 2 w eeks. Call for appointment. [facility] up in the [facility]. Ultracet 1 tablet p.o. q.4 p.r.n. pain . /MODL Voice ID: [id number] Report ID: [id number]
--- OUTSIDE RECORDS SUMMARY | 2019-07-20 02:57 | XMS REPORT ---
:1960 [facility] Address [address] [place] [address] Dr. Cui [address] [place] [address] Care Team Providers Name Role Phone Unavailable Unavailable Unavailable Problems This patient has no known problems. Allergies, Adverse Reactions, Alerts This patient has no known allergies or adverse reactions. Medications This patient has no known medications. Encounters Start End Encounter Admission Attending Care Care Encounter Date/Time Date/Time Type Type Clinicians Facility Department ID 2019-07-06 2019-07-06 Outpatient [facility] [id number] 07:58:00 07:58:00
== END 2019-07-16 12:22 | disposition home or self-care (01) ==
LOC: OR 08:35
PROVIDERS: ATTEND Surgery
PROC: 0JH63WZ Insertion of Totally Implantable Vascular Access Device into Chest Subcutaneous Tissue and Fascia, Percutaneous Approach (ICD-10-PCS; principal; 2019-07-16 09:30)
DX: C34.90 Malignant neoplasm of unspecified part of unspecified bronchus or lung (principal); F17.200 Nicotine dependence, unspecified, uncomplicated; Z88.6 Allergy status to analgesic agent; Z80.9 Family history of malignant neoplasm, unspecified
CPT/HCPCS: 36558; 85025; 36415; 71045; 76000; J2704; J2370; J1644 ×2; J3010; J0690; J7120; C1788 ×2; J2250

== ENCOUNTER 2019-08-03 16:55 | Emergency (ER) | payer OTHER ==
--- OUTSIDE RECORDS SUMMARY | 2019-08-03 16:57 | XMS REPORT ---
:1960 [facility] Address [address] [place] [address] Dr. Cui [address] [place] [address] Care Team Providers Name Role Phone Unavailable Unavailable Unavailable Problems This patient has no known problems. Allergies, Adverse Reactions, Alerts This patient has no known allergies or adverse reactions. Medications This patient has no known medications. Encounters Start End Encounter Admission Attending Care Care Encounter Date/Time Date/Time Type Type Clinicians Facility Department ID 2019-07-06 2019-07-06 Outpatient [facility] [id number] 07:58:00 07:58:00
[2019-08-03 17:59] LABS: Absolute Lymphocytes (CBC) 1.6 K/uL (0.7-4.9); Basophils % 0.8 % (0-1.3); Hematocrit 30.8 % (39.6-49.0); Lymphocytes % 25.5 % (15.3-44.8); MPV 8.8 fL (7.6-11.3); RBC Red Blood Cell Count 3.43 M/uL (4.33-5.43)
[2019-08-03 18:17] LABS: Albumin 3.5 g/dL (3.4-5.0); Bilirubin Direct 0.1 mg/dL (0-0.2); Bilirubin Total 0.4 mg/dL (0.2-1.0); Potassium 4.5 mmol/L (3.5-5.1); Protein, Total 7.2 g/dL (6.4-8.2)
--- NOTE | 2019-08-03 19:00 | RAD REPORT ---
EXAM DESCRIPTION: CT - Chest Abdomen Pelvis W Cont - 08/03/2019 6:44 pm CLINICAL HISTORY: Chest and abdomen pain. Left posterior rib pain COMPARISON: Chest Abdomen Pelvis W Cont dated 05/20/2019; Chest Abdomen Pelvis W Cont dated 02/16/2019 ; Chest Abdomen Pelvis W Cont dated 11/12/2018; Mri Abdomen W/Wo Cont dated 05/27/2019 TECHNIQUE: Approximately 100 mL nonionic IV contrast was administered to the patient. All CT scans are performed using dose optimization technique as appropriate and may include automated exposure control or mA/KV adjustment according to patient size. FINDINGS: Small bilateral pleural effusions are present, slightly greater on the left. Ill-defined m atted soft tissue in the sub- carinal in medial right lower lung is again noted, similar to comparati ve study.Linear subsegmental atelectasis is present in both lung bases.No pericardial fluid.No intrat horacic adenopathy. Metastatic disease in the liver is again noted, showing evidence of progression since comparative nova dy. For example, metastatic deposit along the right lateral lobe of the liver on today's examination measures 25 x 15 mm, previously 17 x 14 mm. The spleen is intact. Vague area of diminished density is seen in the pancreatic neck region, without well-defined margins. This correlates with recent MR fin dings remains of unclear etiology. Prominent duodenal diverticulum the noted adjacent to the pancreat ic head. Cholelithiasis. Left adrenal gland is normal. Kidneys show no hydronephrosis or mass. Right adrenal mass is again noted, appearing increased in size since prior study, currently measuring 18 mm (previously 11 mm). No bowel obstruction, free air, free fluid or abscess. Minimal fracture involves the left posterior t enth rib. IMPRESSION: Minimally displaced fracture involves the left posterior tenth rib. Mild progression is seen in the liver and right adrenal metastatic disease since comparative study. Small bilateral pleural effusions. Cholelithiasis.
--- NOTE | 2019-08-03 19:23 | ER ---
Nurse's Notes [facility] Name: Anuj Madrigal Jr Age: 59 yrs Sex: Male : 1960 Arrival Date: 08/03/2019 Time: 16:57 Bed 27 Private MD: José Swenson Diagnosis: Fracture of one rib, left side Presentation: 08/03 17:09 Presenting complaint: Patient states: I fell about 3 days ago and hit my side on the la1 vanity. My doctor sent me to make sure I do not have any internal bleeding. Transition of care: patient was not received from another setting of care. Onset of symptoms was August 03, 2019. Risk Assessment: Do you want to hurt yourself or someone else? Patient reports no desire to harm self or others. Initial Sepsis Screen: Does the patient meet any 2 criteria? No. Patient's initial sepsis screen is negative. Does the patient have a suspected source of infection? No. Patient's initial sepsis screen is negative. Care prior to arrival: None. 17:09 Method Of Arrival: Wheelchair la1 17:09 Acuity: QUENTIN 3 la1 Historical: - Allergies: 17:09 Codeine; la1 - Home Meds: 18:24 Meclizine Oral [Active]; ProAir HFA inhalation [Active]; Symbicort inhalation [Active]; mg2 - PMHx: 17:09 COPD; Back pain; Diverticulitis; Lung CA; Pancreatitis; SMALL CELL CANCER, METATSTISIS la1 TO BRAIN AND OTHER BODY PARTS; - Immunization history:: Adult Immunizations up to date. - Social history:: Smoking status: unknown. - Ebola Screening: : No symptoms or risks identified at this time. Screenin:24 Abuse screen: Denies threats or abuse. Denies injuries from another. Nutritional mg2 screening: No deficits noted. Tuberculosis screening: No symptoms or risk factors identified. Fall Risk Fall in past 12 months (25 points). Assessment: 18:19 General: Appears in no apparent distress. comfortable, Behavior is calm, cooperative. mg2 Pain: Complains of pain in back Pain does not radiate. Neuro: Level of Consciousness is awake, alert, obeys commands, Oriented to person, place, time, situation. Cardiovascular: Capillary refill < 3 seconds Patient's skin is warm and dry. Respiratory: Airway is patent Respiratory effort is even, unlabored, Respiratory pattern is regular, symmetrical. GI: No signs and/or symptoms were reported involving the gastrointestinal system. : No signs and/or symptoms were reported regarding the genitourinary system. EENT: No signs and/or symptoms were reported regarding the EENT system. Derm: Skin is intact, is healthy with good turgor, Skin is pink, warm \T\ dry. normal. Musculoskeletal: Circulation, motion, and sensation intact. Capillary refill < 3 seconds, Reports pain in back. Vital Signs: 17:07 BP 100 / 69; Pulse 97; Resp 16; Temp 98.0; Pulse Ox 98% on R/A; Weight 58.97 kg; Height la1 5 ft. 9 in. (175.26 cm); 18:21 BP 118 / 70; Pulse 71; Resp 18; Pulse Ox 98% on R/A; mg2 19:45 BP 122 / 78; Pulse 71; Resp 18; Temp 98; Pulse Ox 100% on R/A; mg2 17:07 Body Mass Index 19.20 (58.97 kg, 175.26 cm) la1 ED Course: 16:57 Patient arrived in ED. as 16:58 José Swenson MD is Private Physician. as 17:08 Arm band placed on left wrist. la1 17:09 Triage completed. la1 17:16 Omar Hopkins NP is PHCP. pm1 17:16 Elias Restrepo MD is Attending Physician. pm1 17:23 Samson Cummings, AMNA is Primary Nurse. mg2 17:47 Radiology exam delayed due to lab results not completed at this time. (BUN/Creatinine). nj 18:13 Radiology exam delayed due to lab results not completed at this time. (BUN/Creatinine). nj 18:21 Patient has correct armband on for positive identification. Pulse ox on. NIBP on. Door mg2 closed. Warm blanket given. 18:21 No provider procedures requiring assistance completed. Inserted saline lock: 22 gauge mg2 in right forearm, using aseptic technique. Blood collected. 18:46 CT Chest, Abdomen, Pelvis - W/Contrast In Process Unspecified. EDMS 19:22 José Swenson MD is Referral Physician. pm1 19:45 IV discontinued, intact, bleeding controlled, No redness/swelling at site. Pressure mg2 dressing applied. Administered Medications: No medications were administered Outcome: 19:22 Discharge ordered by MD. pm1 19:46 Discharged to home via wheelchair, with family. mg2 19:46 Condition: stable 19:46 Discharge instructions given to patient, family, Instructed on discharge instructions, follow up and referral plans. medication usage, Demonstrated understanding of instructions, follow-up care, medications, Prescriptions given X 1. 19:46 Patient left the ED. mg2 Signatures: Dispatcher [employer] EDAyesha Domínguez Lee, RN RN la1 Omar Hopkins, ARI CARTOON ANIMATOR pm1 Edward Cardenas Michele, RN RN mg2
--- NOTE | 2019-08-03 19:23 | EDPHYS ---
Physician Documentation [facility] Name: Anuj Madrigal Jr Age: 59 yrs Sex: Male : 1960 Arrival Date: 08/03/2019 Time: 16:57 Bed 27 Private MD: José Swenson ED Physician Elias Restrepo HPI: 08/03 17:39 This 59 yrs old Male presents to ER via Wheelchair with complaints of Fall pm1 Injury, Back Pain. 17:39 Details of fall: The patient fell from an upright position, while standing, and struck pm1 hit his back against the counter. Onset: The symptoms/episode began/occurred 3 day(s) ago. Associated injuries: The patient sustained left lateral posterior chest. Severity of symptoms: in the emergency department the symptoms are unchanged. The patient has not experienced similar symptoms in the past. The patient has been recently seen by a physician: the patient's primary care provider, Dr. Swenson earlier today. Patient with fall three days ago while getting up from the toilet. His sock slipped on the floor and he hit his left side of his back against the counter. Patient without any head injury, neck pain, LOC, headache. No shortness of breath or fever. Saw his PCP today who recommended imaging to ensure no bleeding present due to him taking eliquis . Historical: - Allergies: 17:09 Codeine; la1 - Home Meds: 18:24 Meclizine Oral [Active]; ProAir HFA inhalation [Active]; Symbicort inhalation [Active]; mg2 - PMHx: 17:09 COPD; Back pain; Diverticulitis; Lung CA; Pancreatitis; SMALL CELL CANCER, METATSTISIS la1 TO BRAIN AND OTHER BODY PARTS; - Immunization history:: Adult Immunizations up to date. - Social history:: Smoking status: unknown. - Ebola Screening: : No symptoms or risks identified at this time. ROS: 17:39 Constitutional: Negative for fever, chills, and weight loss, Eyes: Negative for injury, pm1 pain, redness, and discharge, ENT: Negative for injury, pain, and discharge, Neck: Negative for injury, pain, and swelling, Cardiovascular: Negative for chest pain, palpitations, and edema, Respiratory: Negative for shortness of breath, cough, wheezing, and pleuritic chest pain, Abdomen/GI: Negative for abdominal pain, nausea, vomiting, diarrhea, and constipation. 17:39 : Negative for injury, bleeding, discharge, and swelling, MS/Extremity: Negative for injury and deformity, Skin: Negative for injury, rash, and discoloration, Neuro: Negative for headache, weakness, numbness, tingling, and seizure. 17:39 Back: Positive for of the left lateral posterior chest. Exam: 17:39 Constitutional: This is a well developed, well nourished patient who is awake, alert, pm1 and in no acute distress. Head/Face: Normocephalic, atraumatic. Neck: Trachea midline, no thyromegaly or masses palpated, and no cervical lymphadenopathy. Supple, full range of motion without nuchal rigidity, or vertebral point tenderness. No Meningismus. Chest/axilla: Normal chest wall appearance and motion. Nontender with no deformity. No lesions are appreciated. Cardiovascular: Regular rate and rhythm with a normal S1 and S2. No gallops, murmurs, or rubs. Normal PMI, no JVD. No pulse deficits. Respiratory: Lungs have equal breath sounds bilaterally, clear to auscultation and percussion. No rales, rhonchi or wheezes noted. No increased work of breathing, no retractions or nasal flaring. Abdomen/GI: Soft, non-tender, with normal bowel sounds. No distension or tympany. No guarding or rebound. No evidence of tenderness throughout. 17:39 Skin: Warm, dry with normal turgor. Normal color with no rashes, no lesions, and no evidence of cellulitis. MS/ Extremity: Pulses equal, no cyanosis. Neurovascular intact. Full, normal range of motion. 17:39 Back: pain, that is moderate, of the focal point to left lateral posterior mid back, normal spinal alignment noted, vertebral tenderness, is not appreciated. 17:39 Neuro: Orientation: is normal, Motor: is normal, moves all fours. Vital Signs: 17:07 BP 100 / 69; Pulse 97; Resp 16; Temp 98.0; Pulse Ox 98% on R/A; Weight 58.97 kg; Height la1 5 ft. 9 in. (175.26 cm); 18:21 BP 118 / 70; Pulse 71; Resp 18; Pulse Ox 98% on R/A; mg2 19:45 BP 122 / 78; Pulse 71; Resp 18; Temp 98; Pulse Ox 100% on R/A; mg2 17:07 Body Mass Index 19.20 (58.97 kg, 175.26 cm) la1 MDM: 17:18 Patient medically screened. pm1 19:21 Data reviewed: vital signs. Data interpreted: Pulse oximetry: on room air is 98 %. pm1 Interpretation: normal. Counseling: I had a detailed discussion with the patient and/or guardian regarding: the historical points, exam findings, and any diagnostic results supporting the discharge/admit diagnosis, lab results, radiology results, the need for outpatient follow up, to return to the emergency department if symptoms worsen or persist or if there are any questions or concerns that arise at home. 08/03 17:29 Order name: Basic Metabolic Panel; Complete Time: 18:29 pm1 08/03 17:29 Order name: CBC with Diff pm1 08/03 17:28 Order name: CT Chest, Abdomen, Pelvis - W/Contrast; Complete Time: 19:11 pm1 08/03 17:29 Order name: Creatinine for Radiology; Complete Time: 18:29 pm1 08/03 17:29 Order name: Hepatic Function; Complete Time: 18:29 pm1 08/03 19:26 Order name: INCENTIVE SPIROMETRY pm1 08/03 17:29 Order name: IV Saline Lock; Complete Time: 17:50 pm1 08/03 17:29 Order name: Labs collected and sent; Complete Time: 17:50 pm1 Administered Medications: No medications were administered Disposition: 08/04 17:49 Co-signature as Attending Physician, Elias Restrepo MD Did not see or evaluate patient. ps1 Chart signed for administrative purposes. Not an endorsement of care. . Disposition: 08/03/19 19:22 Discharged to Home. Impression: Fracture of one rib, left side. - Condition is Stable. - Discharge Instructions: Fall Prevention in the Home, Rib Fracture, Incentive Spirometer. - Prescriptions for Tramadol 50 mg Oral Tablet - take 1 tablet by ORAL route every 8 hours as needed; 20 tablet. - Medication Reconciliation Form, Thank You Letter, Antibiotic Education, Prescription Opioid Use form. - Follow up: Emergency Department; When: As needed; Reason: Worsening of condition. Follow up: José Swenson MD; When: 2 - 3 days; Reason: Recheck today's complaints, Continuance of care, Re-evaluation by your physician. - Problem is new. - Symptoms have improved. Signatures: Dispatcher [employer] EDMS Beto Alcaraz RN RN la1 Omar Hopkins, IT ASSOCIATE IT ASSOCIATE pm1 Elias Restrepo MD MD ps1 Samson Cummings RN RN mg2 Corrections: (The following items were deleted from the chart) 08/03 19:46 19:22 08/03/2019 19:22 Discharged to Home. Impression: Fracture of one rib, left side. mg2 Condition is Stable. Forms are Medication Reconciliation Form, Thank You Letter, Antibiotic Education, Prescription Opioid Use. Follow up: Emergency Department; When: As needed; Reason: Worsening of condition. Follow up: José Swenson; When: 2 - 3 days; Reason: Recheck today's complaints, Continuance of care, Re-evaluation by your physician. Problem is new. Symptoms have improved. pm1
[2019-08-03 19:47] LABS: Platelet Estimate ADEQ; Urine White Blood Cell Casts OK
[2019-08-03 19:48] LABS: Blood Morphology Comment NOTED (NOT SEEN); Poikilocytosis 1+
[2019-08-03 20:22] VITALS: BP 122/78; TEMP 98; O2SAT 100
== END 2019-08-03 19:46 | disposition home or self-care (01) ==
LOC: ER 16:55
DX: S22.32XA Fracture of one rib, left side, initial encounter for closed fracture (principal); W01.198A Fall on same level from slipping, tripping and stumbling with subsequent striking against other object, initial encounter; Y93.89 Activity, other specified; Y92.002 Bathroom of unspecified non-institutional (private) residence as the place of occurrence of the external cause; Z79.01 Long term (current) use of anticoagulants; Z88.5 Allergy status to narcotic agent; Z85.118 Personal history of other malignant neoplasm of bronchus and lung; Z85.841 Personal history of malignant neoplasm of brain; J44.9 Chronic obstructive pulmonary disease, unspecified
CPT/HCPCS: 85025; 80048; 36415; 80076; 71260; 74177; 99284; Q9967

== ENCOUNTER 2019-08-09 16:25 | Emergency (ER) | payer OTHER ==
--- OUTSIDE RECORDS SUMMARY | 2019-08-09 16:28 | XMS REPORT ---
:1960 [facility] Address [address] [place] [address] Dr[address]ui [address] [place] [address] Care Team Providers Name Role Phone Unavailable Unavailable Unavailable Problems This patient has no known problems. Allergies, Adverse Reactions, Alerts This patient has no known allergies or adverse reactions. Medications This patient has no known medications. Encounters Start End Encounter Admission Attending Care Care Encounter Date/Time Date/Time Type Type Clinicians Facility Department ID 2019-07-06 2019-07-06 Outpatient [facility] MED [id number] 07:58:00 07:58:00
[2019-08-09] MEDS ORDERED: NA CHLORIDE 0.9% 1,000 ML ONE (17:41)
[2019-08-09 17:47] LABS: Absolute Lymphocytes (CBC) 1.6 K/uL (0.7-4.9); Basophils % 1.4 % (0-1.3); Hematocrit 30.3 % (39.6-49.0); Lymphocytes % 34.7 % (15.3-44.8); MPV 8.5 fL (7.6-11.3); RBC Red Blood Cell Count 3.38 M/uL (4.33-5.43)
[2019-08-09 17:55] LABS: Protime INR 1.52
--- NOTE | 2019-08-09 18:01 | RAD REPORT ---
EXAM DESCRIPTION: RAD - Chest Single View - 08/09/2019 5:48 pm CLINICAL HISTORY: COUGH Chest pain. COMPARISON: Chest Single View dated 07/16/2019; Chest Single View dated 06/01/2019; Chest Single View dated 06/01/2019; Chest Single View dated 07/27/2018; Chest Abdomen Pelvis W Cont dated 08/03/2019 FINDINGS: Portable technique limits examination quality. The lungs are emphysematous but grossly clear. The heart is normal in size. No displaced fractures.Ri ght-sided venous catheter tip in the SVC. IMPRESSION: COPD.
[2019-08-09 18:15] LABS: ALT/SGPT 15 U/L (12-78); AST/SGOT 25 U/L (15-37); Albumin 3.6 g/dL (3.4-5.0); Alkaline Phosphatase 64 U/L (45-117); BUN Blood Urea Nitrogen 10 mg/dL (7-18); Bicarbonate 22 mmol/L (21-32); Bilirubin Total 0.4 mg/dL (0.2-1.0); Glucose Level 53 mg/dL (74-106); Lipase 110 U/L (73-393); NT PRO-BNP 486 pg/mL (<125); Phosphorus 3.5 mg/dL (2.5-4.9); Protein, Total 7.6 g/dL (6.4-8.2); Sodium Level 133 mmol/L (136-145); Troponin (Emerg Dept Use Only) < 0.02 ng/mL (0.0-0.045)
[2019-08-09 18:23] LABS: Magnesium 1.3 mg/dL (1.8-2.4)
[2019-08-09] MEDS ORDERED: MAGNESIUM OXIDE 400 MG TAB ONE (18:43)
[2019-08-09] MEDS ORDERED: NA CHLORIDE 0.9% 500 ML ONE (20:05)
--- NOTE | 2019-08-09 22:15 | ER ---
Nurse's Notes [facility] Name: Anuj Madrigal Jr Age: 59 yrs Sex: Male : 1960 Arrival Date: 08/09/2019 Time: 16:27 Bed 5 Private MD: José Swenson Diagnosis: Dehydration;Hypomagnesemia Presentation: 08/09 16:39 Presenting complaint: Patient states: Generalized weakness, nausea, vomiting, aj1 constipation for the past 2 weeks. Reports fever of 101 this morning Reports that he was seen here 08/03/19 and his sodium level was lower than it normally is. He is suppose to have repeat labs drawn on Saturday. Reports that he has had to be admitted for low sodium twice. Transition of care: patient was not received from another setting of care. Onset of symptoms was 2018. Risk Assessment: Do you want to hurt yourself or someone else? Patient reports no desire to harm self or others. Initial Sepsis Screen: Does the patient meet any 2 criteria? HR > 90 bpm. No. Patient's initial sepsis screen is negative. Does the patient have a suspected source of infection? No. Patient's initial sepsis screen is negative. Care prior to arrival: None. 16:39 Method Of Arrival: Wheelchair aj1 16:39 Acuity: QUENTIN 3 aj1 Triage Assessment: 16:46 General: Appears in no apparent distress. uncomfortable, Behavior is calm, cooperative, aj1 appropriate for age. Pain: Denies pain. Neuro: Level of Consciousness is awake, alert, obeys commands, Reports generalized weakness. Cardiovascular: Patient's skin is warm and dry. Respiratory: Airway is patent Respiratory effort is even, unlabored, Respiratory pattern is regular, symmetrical. Historical: - Allergies: 16:46 Codeine; aj1 - Home Meds: 16:46 Meclizine Oral [Active]; ProAir HFA inhalation [Active]; Symbicort inhalation [Active]; aj1 - PMHx: 16:46 Back pain; COPD; Diverticulitis; Lung CA; Pancreatitis; SMALL CELL CANCER, METATSTISIS aj1 TO BRAIN AND OTHER BODY PARTS; - Immunization history:: Adult Immunizations up to date. - Social history:: Smoking status: Patient uses tobacco products, smokes one-half pack cigarettes per day. - Ebola Screening: : Patient denies travel to an Ebola-affected area in the 21 days before illness onset. Screenin:52 Abuse screen: Denies threats or abuse. Denies injuries from another. Nutritional bp screening: No deficits noted. Tuberculosis screening: No symptoms or risk factors identified. Fall Risk None identified. Assessment: 16:53 General: SEE TRIAGE NOTE. bp 19:25 General: Appears in no apparent distress. comfortable, Behavior is calm, cooperative, rr5 appropriate for age. 19:25 Pain: Denies pain. Neuro: Level of Consciousness is awake, alert, obeys commands, rr5 Oriented to person, place, time, situation, Reports weakness. Cardiovascular: Capillary refill < 3 seconds Patient's skin is warm and dry. Respiratory: Airway is patent Respiratory effort is even, unlabored, Respiratory pattern is regular, symmetrical. GI: No signs and/or symptoms were reported involving the gastrointestinal system. : No signs and/or symptoms were reported regarding the genitourinary system. EENT: No signs and/or symptoms were reported regarding the EENT system. Derm: Skin is intact, is healthy with good turgor, Skin is pale, Skin temperature is warm. Musculoskeletal: Circulation, motion, and sensation intact. Capillary refill < 3 seconds. 20:35 Reassessment: Patient appears in no apparent distress at this time. Patient is alert, rr5 oriented x 3, equal unlabored respirations, skin warm/dry/pink. awaiting for urine specimen. able to drink orange juice. started to infuse NS fluid. 21:50 Reassessment: Patient appears in no apparent distress at this time. no urine output. rr5 straight catheter done aseptically drain 850ml yellow clear. ED provider aware. 22:35 Reassessment: Patient appears in no apparent distress at this time. Patient is alert, rr5 oriented x 3, equal unlabored respirations, skin warm/dry/pink. 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 Patient states feeling better. Patient states symptoms have improved. Vital Signs: 16:46 BP 112 / 86; Pulse 110; Resp 20; Temp 97.1; Pulse Ox 100% on R/A; Weight 58.06 kg (R); aj1 Pain 0/10; 17:48 BP 132 / 94; Pulse 79; Resp 18; Pulse Ox 100% on R/A; mg2 18:10 BP 130 / 85; Pulse 72; Resp 18; Pulse Ox 100% on R/A; mg2 19:30 BP 129 / 108; Pulse 75; Resp 16; Temp 97; Pulse Ox 99% ; Pain 0/10; rr5 20:30 BP 143 / 107; Pulse 70; Resp 17; Pulse Ox 98% on R/A; rr5 21:30 BP 152 / 105; Pulse 79; Resp 19; Pulse Ox 97% on R/A; rr5 22:30 BP 141 / 90; Pulse 75; Resp 17; Temp 98.2; Pulse Ox 99% ; Pain 0/10; rr5 ED Course: 16:27 Patient arrived in ED. as 16:27 José Swenson MD is Private Physician. as 16:43 Elias Restrepo MD is Attending Physician. ps1 16:45 Triage completed. aj1 16:46 Arm band placed on Patient placed in an exam room. aj1 16:51 Willian Nicole, AMNA is Primary Nurse. bp 16:53 Patient has correct armband on for positive identification. Bed in low position. Call bp light in reach. Side rails up X2. Adult w/ patient. 17:21 Warm blanket given. Pulse ox on. NIBP on. mh5 17:21 Missed attempt(s): 22 gauge in right antecubital area. mh5 17:30 Inserted saline lock: 22 gauge in right forearm, using aseptic technique. Blood bp collected. 17:48 XRAY CXR (1 view) In Process Unspecified. EDMS 17:48 No provider procedures requiring assistance completed. mg2 19:03 Tyesha Colin FNP-C is PHCP. snw 20:25 IV discontinued, intact, bleeding controlled, No redness/swelling at site. Pressure rr5 dressing applied, positive infiltrated. 20:30 Inserted saline lock: 22 gauge in left hand, using aseptic technique. rr5 21:50 Straight cath inserted, using sterile technique, 16 Fr. Specimen obtained. Returned rr5 clear yellow urine. Patient tolerated well. 22:12 José Swenson MD is Referral Physician. snw 22:35 IV discontinued, intact, bleeding controlled, No redness/swelling at site. Pressure rr5 dressing applied. Administered Medications: 17:48 Drug: NS 0.9% 1000 ml Route: IV; Rate: 1 bolus; Site: right forearm; mg2 19:00 Follow up: Response: No adverse reaction; IV Status: Completed infusion; IV Intake: rr5 1000ml 18:30 Drug: Magnesium 400 mg Route: PO; bp 18:44 Follow up: Response: No adverse reaction bp 20:33 Drug: NS 0.9% 500 ml Route: IV; Rate: bolus; Site: left hand; rr5 21:30 Follow up: Response: No adverse reaction; IV Status: Completed infusion; IV Intake: rr5 500ml Intake: 19:00 IV: 1000ml; Total: 1000ml. rr5 20:34 PO: 400ml (Juice); Total: 1400ml. rr5 21:30 IV: 500ml; Total: 1900ml. rr5 Output: 21:35 Stool: 1 (Formed Stool) ; Total: 0ml. rr5 22:00 Urine: 850ml (Straight Cath); Total: 850ml. rr5 Outcome: 22:12 Discharge ordered by . snw 22:35 Discharged to home via wheelchair, with family. rr5 22:35 Condition: stable 22:35 Discharge instructions given to patient, family, Instructed on discharge instructions, follow up and referral plans. Demonstrated understanding of instructions, follow-up care. 22:36 Patient left the ED. rr5 Signatures: Dispatcher [employer] EDCarmen Merritt RN RN aj1 Tyesha Colin, CHICKEN VACCINATOR-C CHICKEN VACCINATOR-Csnw Ayesha Medrano Maria 5 Willian Nicole RN RN bp Elias Restrepo MD MD ps1 Samson Cummings RN RN mg2 Noe Reid RN RN rr5
--- NOTE | 2019-08-09 22:16 | EDPHYS ---
Physician Documentation [facility] Name: Anuj Madrigal Jr Age: 59 yrs Sex: Male : 1960 Arrival Date: 08/09/2019 Time: 16:27 Bed 5 Private MD: José Swenson ED Physician Elias Restrepo HPI: 08/09 16:59 This 59 yrs old Male presents to ER via Wheelchair with complaints of ps1 Weakness, Abnormal Lab Results. 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 Causes severe hyponatremia. Feeling ps1 weak and fatigued. Symptoms have been going on for a week. No appetite. No seizure or neurologic changes. Historical: - Allergies: 16:46 Codeine; aj1 - Home Meds: 16:46 Meclizine Oral [Active]; ProAir HFA inhalation [Active]; Symbicort inhalation [Active]; aj1 - PMHx: 16:46 Back pain; COPD; Diverticulitis; Lung CA; Pancreatitis; SMALL CELL CANCER, METATSTISIS aj1 TO BRAIN AND OTHER BODY PARTS; - Immunization history:: Adult Immunizations up to date. - Social history:: Smoking status: Patient uses tobacco products, smokes one-half pack cigarettes per day. - Ebola Screening: : Patient denies travel to an Ebola-affected area in the 21 days before illness onset. ROS: 16:59 Eyes: Negative for injury, pain, redness, and discharge, Cardiovascular: Negative for ps1 chest pain, palpitations, and edema, Respiratory: Negative for shortness of breath, cough, wheezing, and pleuritic chest pain, Abdomen/GI: Negative for abdominal pain, nausea, vomiting, diarrhea, and constipation, MS/Extremity: Negative for injury and deformity. 16:59 Constitutional: Positive for chills, fatigue, malaise, poor PO intake, weight loss. 16:59 Neuro: Positive for Exam: 16:59 Head/Face: Normocephalic, atraumatic. Eyes: Pupils equal round and reactive to light, ps1 extra-ocular motions intact. Lids and lashes normal. Conjunctiva and sclera are non-icteric and not injected. Cardiovascular: Regular rate and rhythm. No gallops, murmurs, or rubs. Normal PMI, no JVD. No pulse deficits. Respiratory: Lungs have equal breath sounds bilaterally, clear to auscultation and percussion. No rales, rhonchi or wheezes noted. No increased work of breathing, no retractions or nasal flaring. 16:59 Constitutional: The patient appears in no acute distress, frail. 16:59 Chest/axilla: Inspection: port in left chest. 16:59 Abdomen/GI: Inspection: scar(s), are noted in the epigastric area, umbilical area and suprapubic area, Bowel sounds: normal, Palpation: abdomen is soft and non-tender. 18:55 ECG was reviewed by the Attending Physician. ps1 Vital Signs: 16:46 BP 112 / 86; Pulse 110; Resp 20; Temp 97.1; Pulse Ox 100% on R/A; Weight 58.06 kg (R); aj1 Pain 0/10; 17:48 BP 132 / 94; Pulse 79; Resp 18; Pulse Ox 100% on R/A; mg2 18:10 BP 130 / 85; Pulse 72; Resp 18; Pulse Ox 100% on R/A; mg2 19:30 BP 129 / 108; Pulse 75; Resp 16; Temp 97; Pulse Ox 99% ; Pain 0/10; rr5 20:30 BP 143 / 107; Pulse 70; Resp 17; Pulse Ox 98% on R/A; rr5 21:30 BP 152 / 105; Pulse 79; Resp 19; Pulse Ox 97% on R/A; rr5 22:30 BP 141 / 90; Pulse 75; Resp 17; Temp 98.2; Pulse Ox 99% ; Pain 0/10; rr5 MDM: 17:10 Patient medically screened. ps1 18:55 Data reviewed: vital signs, nurses notes, lab test result(s), EKG, radiologic studies, ps1 and as a result, I will discharge patient. Counseling: I had a detailed discussion with the patient and/or guardian regarding: the historical points, exam findings, and any diagnostic results supporting the discharge/admit diagnosis, lab results, radiology results, the need for outpatient follow up, Nephrology, and Oncology, to return to the emergency department if symptoms worsen or persist or if there are any questions or concerns that arise at home. 08/09 17:08 Order name: Blood Culture Adult (2) ps1 08/09 17:08 Order name: CBC with Diff; Complete Time: 18:11 ps1 12 17:08 Order name: Lipase; Complete Time: 18:24 ps1 12 17:08 Order name: Magnesium; Complete Time: 18:24 ps1 12 17:08 Order name: NT PRO-BNP; Complete Time: 18:24 ps1 12 17:08 Order name: PT-INR; Complete Time: 18:11 ps1 12 17:08 Order name: XRAY CXR (1 view); Complete Time: 18:11 ps1 08/09 17:08 Order name: Ptt, Activated; Complete Time: 18:11 ps1 08/09 17:08 Order name: Troponin (emerg Dept Use Only); Complete Time: 18:24 ps1 08/09 17:08 Order name: Phosphorus; Complete Time: 18:24 ps1 08/09 17:08 Order name: CMP; Complete Time: 18:24 ps1 08/09 17:08 Order name: TSH; Complete Time: 18:24 ps1 08/09 21:58 Order name: Urine Dipstick--Ancillary (enter results); Complete Time: 03:18 mt 08/09 17:08 Order name: EKG; Complete Time: 17:09 ps1 08/09 17:08 Order name: Cardiac monitoring; Complete Time: 17:17 ps1 08/09 17:08 Order name: EKG - Nurse/Tech; Complete Time: 17:37 ps1 08/09 17:08 Order name: IV Saline Lock; Complete Time: 17:37 ps1 08/09 17:08 Order name: Labs collected and sent; Complete Time: 17:37 ps1 08/09 17:08 Order name: O2 Per Protocol; Complete Time: 17:18 ps1 08/09 17:08 Order name: O2 Sat Monitoring; Complete Time: 17:18 ps1 08/09 17:11 Order name: Urine Dipstick-Ancillary (obtain specimen); Complete Time: 22:00 ps1 08/09 20:01 Order name: PO challenge; Complete Time: 20:02 snw EC:41 Rate is 83 beats/min. Rhythm is regular. QRS [place] is Normal. NC interval is normal. QRS ps1 interval is normal. QT interval is normal. No Q waves. T waves are Flattened in leads I, aVL. No ST changes noted. Clinical impression: NSR w/ Non-specific ST/T Changes. Interpreted by me. Administered Medications: 17:48 Drug: NS 0.9% 1000 ml Route: IV; Rate: 1 bolus; Site: right forearm; mg2 19:00 Follow up: Response: No adverse reaction; IV Status: Completed infusion; IV Intake: rr5 1000ml 18:30 Drug: Magnesium 400 mg Route: PO; bp 18:44 Follow up: Response: No adverse reaction bp 20:33 Drug: NS 0.9% 500 ml Route: IV; Rate: bolus; Site: left hand; rr5 21:30 Follow up: Response: No adverse reaction; IV Status: Completed infusion; IV Intake: rr5 500ml Disposition: 08/09/19 22:12 Discharged to Home. Impression: Dehydration, Hypomagnesemia. - Condition is Stable. - Discharge Instructions: Dehydration, Adult, Hypomagnesemia, Rehydration, Adult. - Medication Reconciliation Form, Thank You Letter, Antibiotic Education, Prescription Opioid Use form. - Follow up: José Swenson MD; When: 1 - 2 days; Reason: Recheck today's complaints, Continuance of care, Re-evaluation by your physician. Follow up: Emergency Department; When: As needed; Reason: Worsening of condition. Signatures: Dispatcher [employer] EDMS Carmen Carrillo RN RN aj1 Tyesha Colin, HAND STONECUTTER-C HAND STONECUTTER-Csnw Willian Nicole, AMNA RN bp Elias Restrepo MD MD ps1 Samson Cummings RN RN mg2 Noe Reid, AMNA RN rr5 Corrections: (The following items were deleted from the chart) 22:36 22:12 08/09/2019 22:12 Discharged to Home. Impression: Dehydration; Hypomagnesemia. rr5 Condition is Stable. Forms are Medication Reconciliation Form, Thank You Letter, Antibiotic Education, Prescription Opioid Use. Follow up: José Swenson; When: 1 - 2 days; Reason: Recheck today's complaints, Continuance of care, Re-evaluation by your physician. Follow up: Emergency Department; When: As needed; Reason: Worsening of condition. snw
[2019-08-09 22:33] LABS: Urine Blood NEGATIVE (NEG); Urine Glucose NEGATIVE (NEG); Urine Protein NEGATIVE (NEG); Urine pH 7.5 (5.0-7.0)
[2019-08-09 23:11] VITALS: BP 141/90; TEMP 98.2; O2SAT 99
--- NOTE | 2019-08-10 10:05 | EKG ---
Test Date: 2019-08-09 Test Time: 17:41:36 Ict Customer Support Officer: MG MEASUREMENT RESULTS: Intervals: Rate: 83 TN: 174 QRSD: 86 QT: 424 QTc: 498 [place]: P: 72 TN: 174 QRS: 73 T: 72 INTERPRETIVE STATEMENTS: Normal sinus rhythm Possible Left atrial enlargement Prolonged QT Abnormal ECG Compared to ECG 06/01/2019 02:32:50 Prolonged QT interval now present Sinus tachycardia no longer present Electronically Signed On 08-10-19 10:03:52 ART DIRECTOR by Jack Rosario
== END 2019-08-09 22:36 | disposition home or self-care (01) ==
LOC: ER 16:25
DX: E83.42 Hypomagnesemia (principal); E86.0 Dehydration; Z88.6 Allergy status to analgesic agent; J44.9 Chronic obstructive pulmonary disease, unspecified; Z85.118 Personal history of other malignant neoplasm of bronchus and lung; F17.210 Nicotine dependence, cigarettes, uncomplicated
CPT/HCPCS: 96361; 93005; 87040 ×2; 85025; 36415; 83735; 84100; 85610; 85730; 84443; 81003; 84484; 83690; 80053; 83880; 71045; 51702; 96360; 99284; J7040; J7030

== ENCOUNTER 2019-08-25 06:12 | Inpatient (IN) | payer OTHER ==
--- OUTSIDE RECORDS SUMMARY | 2019-08-25 06:15 | XMS REPORT ---
:1960 [facility] [address] [place] [address] Dr. Cui [address] [place] [id number] Care Team Providers Name Role Phone Unavailable Unavailable Unavailable Problems This patient has no known problems. Allergies, Adverse Reactions, Alerts This patient has no known allergies or adverse reactions. Medications This patient has no known medications. Encounters Start End Encounter Admission Attending Care Care Encounter Date/Time Date/Time Type Type Clinicians Facility Department ID 2019-07-06 2019-07-06 Outpatient [facility] [id number] 07:58:00 07:58:00
[2019-08-25] MEDS ORDERED: FENTANYL CITR 100 MCG/2 ML ONE (07:07)
[2019-08-25] MEDS ORDERED: ONDANSETRON 4 MG/2 ML VIAL ONE (07:07)
[2019-08-25 07:17] LABS: Absolute Lymphocytes (CBC) 2.1 K/uL (0.7-4.9); Basophils % 1.4 % (0-1.3); Hematocrit 30.9 % (39.6-49.0); Lymphocytes % 31.3 % (15.3-44.8); MPV 8.7 fL (7.6-11.3); RBC Red Blood Cell Count 3.49 M/uL (4.33-5.43)
[2019-08-25 07:24] LABS: BUN Blood Urea Nitrogen 5 mg/dL (7-18); Bicarbonate 18 mmol/L (21-32); Glucose Level 82 mg/dL (74-106); Potassium 4.1 mmol/L (3.5-5.1); Sodium Level 120 mmol/L (136-145)
[2019-08-25] MEDS ORDERED: Magnesium Sulfate 2gm IVPB 2 G/50 ML BAG IV ONE (08:22)
[2019-08-25] MEDS ORDERED: NA CHLORIDE 0.9% 1,000 ML ONE (08:22)
--- NOTE | 2019-08-25 08:32 | RAD REPORT ---
EXAM DESCRIPTION: CT - Abdomen Pelvis W Contrast - 08/25/2019 8:09 am CLINICAL HISTORY: Abdominal pain COMPARISON: July 2019 TECHNIQUE: Computed axial tomography of the abdomen pelvis was obtained. 100 cc Isovue-300 was admin istered intravenously. Oral contrast was not requested which limits evaluation of bowel. All CT scans are performed using dose optimization technique as appropriate and may include automated exposure control or mA/KV adjustment according to patient size. FINDINGS: No change in the hepatic lesions. The spleen, left adrenal and kidneys appear unremarkable Minimal enlargement of a 25 millimeter right adrenal mass. [place] Vague small low-density area within the pancreatic neck unchanged Wall of the distal stomach is thickened. The post surgical changes involve colon. There is no evidence diverticulitis. No obstruction. IMPRESSION: No significant change in the hepatic lesions Minimal enlargement of a right adrenal mass consistent with metastasis No change in a vague small low-density area within the pancreatic neck Wall of the stomach is thickened which could indicate inflammation
[2019-08-25] MEDS ORDERED: hydrOXYzine HCL 25 MG TAB ONE (08:38)
--- NOTE | 2019-08-25 08:43 | EDPHYS ---
Physician Documentation [facility] Name: Anuj Madrigal Jr Age: 59 yrs Sex: Male : 1960 Arrival Date: 08/25/2019 Time: 06:16 Bed 26 Private MD: ED Physician Arnoldo Lopez HPI: 08/25 06:59 This 59 yrs old Male presents to ER via Wheelchair with complaints of kb Abdominal Pain. 06:59 The patient presents with abdominal pain in the left lower quadrant. Onset: The kb symptoms/episode began/occurred yesterday. The symptoms do not radiate. Associated signs and symptoms: Pertinent positives: constipation. The symptoms are described as constant. Modifying factors: The symptoms are alleviated by nothing, the symptoms are aggravated by nothing. Severity of pain: At its worst the pain was moderate in the emergency department the pain is unchanged. The patient has not experienced similar symptoms in the past. The patient has not recently seen a physician. Pt reports LLQ pain started yesterday evening and was much worse upon waking. Has a problem with constipation and normally doesn't go for about 2 weeks then has to use an enema. Had enema on Saturday which produced a large BM. 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 - Social history:: Smoking status: Patient uses tobacco products, smokes one pack cigarettes per day. - Ebola Screening: : No symptoms or risks identified at this time. ROS: 06:58 Constitutional: Negative for fever, chills, and weight loss, ENT: Negative for injury, kb pain, and discharge, Neck: Negative for injury, pain, and swelling, Cardiovascular: Negative for chest pain, palpitations, and edema, Respiratory: Negative for shortness of breath, cough, wheezing, and pleuritic chest pain, Back: Negative for injury and pain, MS/Extremity: Negative for injury and deformity, Skin: Negative for injury, rash, and discoloration, Neuro: Negative for headache, weakness, numbness, tingling, and seizure. 06:58 Abdomen/GI: Positive for abdominal pain, constipation. Exam: 06:58 Constitutional: This is a well developed, well nourished patient who is awake, alert, kb and in no acute distress. Head/Face: Normocephalic, atraumatic. ENT: Nares patent. No nasal discharge, no septal abnormalities noted. Tympanic membranes are normal and external auditory canals are clear. Oropharynx with no redness, swelling, or masses, exudates, or evidence of obstruction, uvula midline. Mucous membranes moist. Neck: Trachea midline, no thyromegaly or masses palpated, and no cervical lymphadenopathy. Supple, full range of motion without nuchal rigidity, or vertebral point tenderness. No Meningismus. Chest/axilla: Normal chest wall appearance and motion. Nontender with no deformity. No lesions are appreciated. Cardiovascular: Regular rate and rhythm with a normal S1 and S2. No gallops, murmurs, or rubs. Normal PMI, no JVD. No pulse deficits. Respiratory: Lungs have equal breath sounds bilaterally, clear to auscultation and percussion. No rales, rhonchi or wheezes noted. No increased work of breathing, no retractions or nasal flaring. Back: No spinal tenderness. No costovertebral tenderness. Full range of motion. Skin: Warm, dry with normal turgor. Normal color with no rashes, no lesions, and no evidence of cellulitis. MS/ Extremity: Pulses equal, no cyanosis. Neurovascular intact. Full, normal range of motion. Neuro: Awake and alert, GCS 15, oriented to person, place, time, and situation. Cranial nerves II-XII grossly intact. Motor strength 5/5 in all extremities. Sensory grossly intact. Cerebellar exam normal. Normal gait. 06:58 Abdomen/GI: Inspection: abdomen appears normal, Bowel sounds: normal, in all quadrants, Palpation: soft, in all quadrants, mild abdominal tenderness, in the left upper quadrant, moderate abdominal tenderness, in the left lower quadrant. Vital Signs: 06:25 BP 132 / 87; Pulse 91; Resp 18; Temp 97.7(O); Pulse Ox 99% on R/A; Weight 57.61 kg (R); jb4 Height 5 ft. 9 in. (175.26 cm) (R); Pain 8/10; 07:15 BP 124 / 86; Pulse 83; Resp 16; Pulse Ox 98% on R/A; Pain 7/10; em 08:30 BP 130 / 86; Pulse 102; Resp 18; Pulse Ox 99% on R/A; Pain 7/10; em 09:34 BP 116 / 64; Pulse 71; Resp 18; Temp 98(O); Pulse Ox 99% on R/A; kj1 06:25 Body Mass Index 18.75 (57.61 kg, 175.26 cm) jb4 MDM: 06:18 Patient medically screened. kb 06:58 Data reviewed: vital signs, nurses notes. Data interpreted: Pulse oximetry: on room air kb is 99 %. Interpretation: normal. 08:40 Counseling: I had a detailed discussion with the patient and/or guardian regarding: the kb historical points, exam findings, and any diagnostic results supporting the discharge/admit diagnosis, lab results, radiology results, the need for further work-up and treatment in the hospital. 08/25 06:28 Order name: Basic Metabolic Panel 08/25 06:28 Order name: CBC with Diff 08/25 07:22 Order name: CBC with Automated Diff; Complete Time: 07:27 EDMS 08/25 07:24 Order name: Basic Metabolic Panel; Complete Time: 07:27 EDMS 08/25 07:30 Order name: Magnesium 08/25 07:53 Order name: Magnesium; Complete Time: 07:53 EDMS 08/25 06:28 Order name: CT Abd/Pelvis - IV Contrast Only 08/25 08:45 Order name: CT; Complete Time: 08:47 EDMS 08/25 06:28 Order name: IV Saline Lock; Complete Time: 06:59 kb 08/25 06:28 Order name: Labs collected and sent; Complete Time: 06:59 kb Administered Medications: 06:50 Drug: NS 0.9% 1000 ml Route: IV; Rate: 1000 ml; Site: right forearm; jb4 07:56 Follow up: IV Status: Completed infusion; IV Intake: 1000ml em 07:10 Drug: Zofran 4 mg Route: IVP; Site: right femoral; ss 07:57 Follow up: Response: No adverse reaction; Nausea is decreased em 07:12 Drug: fentaNYL (PF) 25 mcg Route: IVP; Site: right forearm; ss 07:57 Follow up: Response: No adverse reaction; Pain is decreased em 08:25 Drug: Magnesium Sulfate 2 grams Route: IVPB; Infused Over: 2 hrs; Site: right forearm; em 09:41 Follow up: Response: No adverse reaction; IV Status: Completed infusion; IV Intake: em 100ml 08:25 Drug: NS 0.9% 1000 ml Route: IV; Rate: 125 ml/hr; Site: right forearm; em 08:35 Drug: Atarax 25 mg Route: PO; em 09:41 Follow up: Response: No adverse reaction; Marked relief of symptoms em Disposition: 08/25/19 08:42 Hospitalization ordered by Kirsten Hedrick for Inpatient Admission. Preliminary diagnosis are Dehydration, Hypomagnesemia, Hyponatremia, Lower abdominal pain, unspecified. - Bed requested for Telemetry/MedSurg (Inpatient). - Status is Inpatient Admission. em - Condition is Stable. - Problem is new. - Symptoms are unchanged. UTI on Admission? No Addendum: 08/27/2019 06:17 Co-signature as Attending Physician, Arnoldo Lopez MD I agree with the assessment and t w4 plan of care. Signatures: Dispatcher [employer] Mercedes Rob, OMER-C PHYSICAL THERAPIST CLINIC DIRECTOR-Venice Elizalde Edgar, PYTHON WEB DEVELOPER PYTHON WEB DEVELOPER em Savanah Damon, RN RN Kaiden Bhandari RN RN jb4 Arnoldo Lopez MD MD tw4 Corrections: (The following items were deleted from the chart) 08/25 09:21 08:42 Hospitalization Ordered by Kirsten Hedrick MD for Inpatient Admission. Preliminary bd diagnosis is Dehydration; Hypomagnesemia; Hyponatremia; Lower abdominal pain, unspecified. Bed requested for Telemetry/MedSurg (Inpatient). Status is Inpatient Admission. Condition is Stable. Problem is new. Symptoms are unchanged. UTI on Admission? No. kb 10:31 09:21 08/25/2019 08:42 Hospitalization Ordered by Kirsten Hedrick MD for Inpatient em Admission. Preliminary diagnosis is Dehydration; Hypomagnesemia; Hyponatremia; Lower abdominal pain, unspecified. Bed requested for Telemetry/MedSurg (Inpatient). Status is Inpatient Admission. Condition is Stable. Problem is new. Symptoms are unchanged. UTI on Admission? No. bd
--- NOTE | 2019-08-25 08:43 | ER ---
Nurse's Notes [facility] Name: Anuj Madrigal Jr Age: 59 yrs Sex: Male : 1960 Arrival Date: 08/25/2019 Time: 06:16 Bed 26 Private MD: Diagnosis: Dehydration;Hypomagnesemia;Hyponatremia;Lower abdominal pain, unspecified Presentation: 08/25 06:25 Presenting complaint: Patient states: I have been constipated since the and jb4 started having lower abdominal pain yesterday. 06:25 Transition of care: patient was not received from another setting of care. Onset of jb4 symptoms was August 24, 2019. Risk Assessment: Do you want to hurt yourself or someone else? Patient reports no desire to harm self or others. Initial Sepsis Screen: Does the patient meet any 2 criteria? HR > 90 bpm. Yes Does the patient have a suspected source of infection? Yes: Acute abdominal pain. Care prior to arrival: None. 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 - Social history:: Smoking status: Patient uses tobacco products, smokes one pack cigarettes per day. - Ebola Screening: : No symptoms or risks identified at this time. Screenin:25 Abuse screen: Denies threats or abuse. Nutritional screening: No deficits noted. jb4 Tuberculosis screening: No symptoms or risk factors identified. Fall Risk IV access (20 points). Gait- Weak (10 pts.). Mental Status- Oriented to own ability (0 pts). Total Zapata Fall Scale indicates Low Risk Score (25-44 pts). Placed close to Nursing Station Frequent Obs/Assesments occuring Family Present and informed to notify staff if they need to leave bedside As available Patient and Family Educated on Fall Prevention Program and strategies. Assessment: 06:25 General: Appears in no apparent distress. uncomfortable, Behavior is calm, cooperative, jb4 appropriate for age. Pain: Complains of pain in abdomen Pain does not radiate. Pain currently is 8 out of 10 on a pain scale. Pain began 1 day ago. Neuro: Level of Consciousness is awake, alert, obeys commands, Oriented to person, place, time, situation. Cardiovascular: Patient's skin is warm and dry. Respiratory: Airway is patent Respiratory effort is even, unlabored, Respiratory pattern is regular, symmetrical. GI: Abdomen is flat, non-distended, Bowel sounds present X 4 quads. Abd is soft X 4 quads Abdomen is tender to palpation X 4 quads. : No signs and/or symptoms were reported regarding the genitourinary system. EENT: No signs and/or symptoms were reported regarding the EENT system. Derm: Skin is intact, Skin is pink, warm \T\ dry. Musculoskeletal: Circulation, motion, and sensation intact. Range of motion: intact in all extremities. 07:35 Reassessment: Patient appears in no apparent distress at this time. Patient and/or em family updated on plan of care and expected duration. Pain level reassessed. Patient is alert, oriented x 3, equal unlabored respirations, skin warm/dry/pink. reports pain is 7/10, but states he is feeling better, appears more comfortable Patient states feeling better. Patient states symptoms have improved. 08:30 Reassessment: Patient appears in no apparent distress at this time. Patient and/or em family updated on plan of care and expected duration. Pain level reassessed. Patient is alert, oriented x 3, equal unlabored respirations, skin warm/dry/pink. 09:30 Reassessment: Patient appears in no apparent distress at this time. Patient and/or em family updated on plan of care and expected duration. Pain level reassessed. Patient is alert, oriented x 3, equal unlabored respirations, skin warm/dry/pink. Vital Signs: 06:25 BP 132 / 87; Pulse 91; Resp 18; Temp 97.7(O); Pulse Ox 99% on R/A; Weight 57.61 kg (R); jb4 Height 5 ft. 9 in. (175.26 cm) (R); Pain 8/10; 07:15 BP 124 / 86; Pulse 83; Resp 16; Pulse Ox 98% on R/A; Pain 7/10; em 08:30 BP 130 / 86; Pulse 102; Resp 18; Pulse Ox 99% on R/A; Pain 7/10; em 09:34 BP 116 / 64; Pulse 71; Resp 18; Temp 98(O); Pulse Ox 99% on R/A; kj1 06:25 Body Mass Index 18.75 (57.61 kg, 175.26 cm) jb4 ED Course: 06:16 Patient arrived in ED. jg7 06:17 Mercedes Bocanegra FNP-C is [facility]. kb 06:17 Arnoldo Lopez MD is Attending Physician. kb 06:18 Kaiden Faye, AMNA is Primary Nurse. jb4 06:25 Arm band placed on right wrist. jb4 06:25 Patient has correct armband on for positive identification. Bed in low position. Call jb4 light in reach. Side rails up X 1. Pulse ox on. NIBP on. 06:33 Triage completed. jb4 06:48 Missed attempt(s): 20 gauge in left antecubital area. Bleeding controlled, band aid ds4 applied, catheter tip intact. 06:50 Initial lab(s) drawn, by ED staff, sent to lab. Inserted saline lock: 22 gauge in right jb4 forearm, using aseptic technique. Blood collected. 06:55 Radiology exam delayed due to lab results not completed at this time. (BUN/Creatinine). kw1 07:02 CBC with Diff Sent. ds4 07:02 Basic Metabolic Panel Sent. ds4 08:42 Kirsten Hedrick MD is Hospitalizing Provider. kb 10:26 No provider procedures requiring assistance completed. Patient admitted, IV remains in em place. Administered Medications: 06:50 Drug: NS 0.9% 1000 ml Route: IV; Rate: 1000 ml; Site: right forearm; jb4 07:56 Follow up: IV Status: Completed infusion; IV Intake: 1000ml em 07:10 Drug: Zofran 4 mg Route: IVP; Site: right femoral; ss 07:57 Follow up: Response: No adverse reaction; Nausea is decreased em 07:12 Drug: fentaNYL (PF) 25 mcg Route: IVP; Site: right forearm; ss 07:57 Follow up: Response: No adverse reaction; Pain is decreased em 08:25 Drug: Magnesium Sulfate 2 grams Route: IVPB; Infused Over: 2 hrs; Site: right forearm; em 09:41 Follow up: Response: No adverse reaction; IV Status: Completed infusion; IV Intake: em 100ml 08:25 Drug: NS 0.9% 1000 ml Route: IV; Rate: 125 ml/hr; Site: right forearm; em 08:35 Drug: Atarax 25 mg Route: PO; em 09:41 Follow up: Response: No adverse reaction; Marked relief of symptoms em Intake: 07:56 IV: 1000ml; Total: 1000ml. em 09:41 IV: 100ml; Total: 1100ml. em Output: 10:30 Urine: 600ml (Voided); Total: 600ml. em Outcome: 08:42 Decision to Hospitalize by Provider. kb 10:26 Admitted to Med/surg accompanied by tech, family with patient, via stretcher, room 208, em with chart, Report called to AMNA Reddy 10:26 Condition: good 10:26 Instructed on the need for admit, Demonstrated understanding of instructions. 10:31 Patient left the ED. em Signatures: Mercedes Bocanegra, AEROSPACE MANAGER-C AEROSPACE MANAGER-Ckb Isaias Shankar, PELLETIZER TENDER PELLETIZER TENDER em Savanah Damon RN RN ss Swanson, Donovan ds4 Kaiden Faye RN RN Bren Cuevas kw1 Mary Ann Bocanegra kj1 Ricarda Hurley jg7
[2019-08-25] MEDS ORDERED: ONDANSETRON 4 MG/2 ML VIAL IV PRN (11:11)
[2019-08-25] MEDS ORDERED: ENOXAPARIN 40 MG/0.4 ML SQ SCH (11:11)
[2019-08-25] MEDS ORDERED: ACETAMINOPHEN 500 MG TAB PO PRN (11:11)
[2019-08-25] MEDS ORDERED: NA CHLORIDE 0.9% 1,000 ML IV SCH ×2 (11:11→13:00)
[2019-08-25] MEDS: levETIRAcetam 500 MG in NA CHLORIDE 0.9% 100 ML IV SCH ×2 (11:17→20:33)
--- NOTE | 2019-08-25 12:05 | P.CNS ---
Date of Consult: 08/25/19 Reason for Consult: Hyponatremia Requesting Physician: Kirsten Hedrick Chief Complaint: abodminal pain History of Present Illness: A 59 Y/o man with PMHx of metastatic Lung Ca, toabco use and HTN and SIADH pt presented for abdominal pain of 2 days duration pt denied vomiting or diarrhea, stated he had poor oral intake recently his Sodium was 132 on 08/20 , off tolvaptan or salt tablet pt also stated he has seizure on Saturday, he is known to have brain mets No chest, pain, palpitation, vomiting or diarrhea Allergies codeine Adverse Reaction (Verified 07/16/19 08:25) Nausea/Vomiting hydromorphone Adverse Reaction (Verified 07/16/19 08:25) Itching Home Medications: Meclizine HCl 1 tab PO TID PRN 06/01/19 Albuterol Sulfate [Proair Hfa] 2 puff IH DAILY PRN 90 Days #3 hfa.aer.ad Apixaban [Eliquis] 10 mg PO BID 30 Days #74 tablet 06/02/19 Budesonide/Formoterol Fumarate [Symbicort 160-4.5 Mcg Inhaler] 2 puff IH BID 90 Days #3 hfa.aer.ad 06/02/19 Ondansetron HCl [Zofran] 4 mg PO PRN PRN 07/16/19 - Past Medical/Surgical History Diabetic: No -: COPD -: Small-cell lung cancer with metastasis to the brain/liver/adrenal -: Chronic back pain -: Tobacco abuse -: Carotid arterial disease -: Hypertension -: bowel resection w/colostomy 2010 -: rt foot fx-1970 -: revision of colostomy 2014 -: Neck surgery-laminectomy 2015 Psychosocial/ Personal History: Patient is - Family History Mother Medical History: Cancer (Lung cancer) Brother Medical History: Hypertension, Diabetes Father Medical History: Cancer (Lung cancer) Notes: father and mother both lung cancer - Social History Smoking Status: Current every day smoker Alcohol use: No CD- Drugs: No Caffeine use: No Review of Systems As in HPI Physical Examination Temp Pulse Resp BP Pulse Ox 98 F 71 18 116/64 08/25/19 09:34 08/25/19 09:34 08/25/19 09:34 08/25/19 09:34 General: In no apparent distress, Oriented x3 HEENT: Atraumatic Neck: Supple, Without JVD or thyroid abnormality Respiratory: Clear to auscultation bilaterally, Normal air movement Cardiovascular: No edema, Regular rate/rhythm, Normal S1 S2, No gallops, No rubs , No murmurs Gastrointestinal: Normal bowel sounds Musculoskeletal: No swelling Laboratory Data (last 24 hrs) 08/25/19 06:50: Magnesium 1.2 L* 08/25/19 06:50: WBC 6.6, Hgb 10.6 L, Hct 30.9 L, Plt Count 265 08/25/19 06:50: Sodium 120 L, Potassium 4.1, BUN 5 L, Creatinine 0.57, Glucose 82 Conclusions/Impression: Hyponatremia previously have SIADH now could be depletional due to poor oral inatke will start on NS labs at 6PM fluid restriction will start on ensure will send for urine lytes HTN resume home meds Metastatic lung CA Pulmonary F/U
[2019-08-25] MEDS ORDERED: dexAMETHasone 4 MG/ML VIAL IV ONE (12:41)
[2019-08-25] MEDS ORDERED: levETIRAcetam 1,000 MG in NA CHLORIDE 0.9% 100 ML IV ONE (12:43)
--- NOTE | 2019-08-25 14:55 | RAD REPORT ---
EXAM DESCRIPTION: CT - Head Brain Wo Cont - 08/25/2019 2:20 pm CLINICAL HISTORY: Seizure COMPARISON: June 2019 MRI brain TECHNIQUE: Computed axial tomography of the head was obtained. IV contrast was not requested. All CT scans are performed using dose optimization technique as appropriate and may include automated exposure control or mA/KV adjustment according to patient size. FINDINGS: An intracranial bleed is not seen . Mild prominence of the ventricles is stable No extra-axial fluid collection is noted. No significant change in the sella/suprasellar mass. Fluid within the sinuses/ mastoids is not seen. IMPRESSION: No significant change in the appearance of sellar/ suprasellar metastasis since June 2019.
[2019-08-25] MEDS ORDERED: TRAMADOL 37.5mg/APAP 325mg PER TAB PO PRN (17:00)
[2019-08-25 18:18] LABS: Albumin 3.1 g/dL (3.4-5.0); BUN Blood Urea Nitrogen 5 mg/dL (7-18); Bicarbonate 19 mmol/L (21-32); Glucose Level 98 mg/dL (74-106); Magnesium 1.7 mg/dL (1.8-2.4); Phosphorus 3.3 mg/dL (2.5-4.9); Potassium 4.1 mmol/L (3.5-5.1); Sodium Level 128 mmol/L (136-145)
[2019-08-25] MEDS: dexAMETHasone 4 MG/ML VIAL IV SCH (20:33)
[2019-08-25] MEDS: APIXABAN 5 MG TABLET PO SCH (20:33)
[2019-08-25] MEDS: D5W 1,000 ML IV SCH (20:47)
[2019-08-25] MEDS ORDERED: HOME MED 1 EA UNK (Budesonide/Formoterol Fumarate [Symbicort 160-4.5 Mcg Inhaler] 2 PUFF) IH SCH (21:00)
--- NOTE | 2019-08-25 22:01 | HP ---
Date of Admission: 08/25/2019 Consultants: 1.Dr. Stroud with Nephrology. 2.Dr. Enciso with Neurology. Chief Complaint: Seizure, dehydration, hyponatremia. History Of Present Illness: Patient is a 59-year-old male who has a past medical history of small-ce ll lung cancer with metastases to the brain, liver, and adrenal gland, COPD, not on oxygen, nicotine dependence, hypertension, carotid artery disease, and anemia, who was in his usual state of health [facility] 3 days prior to admission when the patient had sudden onset of altered mental status with seizure -type episode. Patient was evaluated by EMS. Episode did not last very long. He also had labs done on Saturday and was found to have a sodium level of 133. Since then, the patient has become more leth argic, has had decreased p.o. intake. Has not had any solid food for the past week. Does report usi ng enema and laxatives and had a large bowel movement, but no diarrhea, nausea, vomiting, fever, or c hills. Patient's symptoms are constant, moderate, progressively worsening. No alleviating factors. Patient therefore came into the ER for further evaluation. His workup revealed a sodium of 120, mag nesium was 1.2. White blood cell count was normal. Patient is currently on immunotherapy and follow s with Dr. Rolon at the local cancer center. CT scan of the abdomen showed no significant kohli e in the hepatic lesions. Minimal enlargement of the right adrenal mass consistent with metastases. No change in a vague small low-density area within the pancreatic neck and wall. The stomach is thi ckened, which could indicate inflammation. Patient was given 1 L of normal saline bolus. Magnesium was replaced and was referred for admission. When seen in the ER, he was awake, alert, and oriented x3, in some mild distress. Past Medical History: Stage IV non-small cell lung cancer with metastases to the brain, liver, and a drenal gland; COPD; tobacco use; hypertension; carotid artery disease; anemia of chronic disease; chr onic back pain. Surgical History: Bowel resection with colostomy in 2010, right foot surgery in 1970, revision of co lostomy in 2014, neck surgery, laminectomy in 2016, multiple biopsies. Allergies: TO CODEINE AND HYDROMORPHONE. Medications: List reviewed. Social History: Patient is , has a son. Patient denies any further tobacco use or alcohol us e. Family History: Mother had lung cancer. Brother has hypertension and diabetes. Father also had elizabeth g cancer. Review of Systems: Ten-point system reviewed, negative except as per HPI. Physical Examination: Vital Signs: Temperature 97.7, heart rate 91, blood pressure 132/87, respirations 18, O2 99% on room air. General: Awake, alert, and oriented x3, appears older than stated age, ill-appearing, cachectic frai l male. HEENT: Normocephalic, atraumatic PERRLA, EOMI. Dry mucous membranes. Poor dentition. Conjunctivae are anicteric. Dry mucous membranes. Oropharynx is clear. Neck: Supple. No JVD. Trachea midline. CV: S1, S2. Regular rate and rhythm. Peripheral pulses present. Respiratory: Moving air well bilaterally. No wheezing or stridor. No use of accessory muscles. Gastrointestinal: Abdomen is soft, nontender, nondistended. Positive bowel sounds. No guarding or rigidity. Extremities: No clubbing, cyanosis, or edema. No calf tenderness. Neuro: Cranial nerves 2 through 12 intact grossly. No focal neurological deficit. Speech is normal . Strength is symmetric bilateral upper and lower extremities. Skin: No rashes, normal skin turgor. Patient appears very pale. Psych: Mood is depressed. Affect is congruent with mood. Insight and judgment are good. Laboratory Data: WBC 6.6, H and H 10.6 and 30.9, platelets 265, neutrophils 46%. Sodium 120, potass ium 4.1, chloride 93, CO2 of 18, BUN 5, creatinine 0.57, glucose 82, calcium 8.5, magnesium 1.2. CT scan of the abdomen and pelvis shows no significant change in the hepatic lesions, minimal enlargemen t of right adrenal mass consistent with metastases. No change in vague small low-density area within the pancreatic neck. Wall of the stomach is thickened, which could indicate inflammation. Assessment: A 59-year-old male with, 1.Seizure episode. This was several days prior to admission, likely secondary to brain metastasis. Sodium on that day had just been checked, was 133. We will place on seizure precautions. Load with Nayeli and have Dr. Enciso evaluate the patient. 2.Severe hyponatremia, sodium is 120. This is acute drop since Rj when the level was 133 at his kidney doctor's office. We will start on normal saline, avoid 3% saline right now due to risk of ce ntral pontine myelinolysis. We will place in the ICU for close monitoring. Repeat sodium in 6 hours , adjust rate as necessary, likely due to cancer versus SIADH. Patient has had poor oral intake. 3.History of small-cell lung cancer stage IV with diffuse metastases to brain, liver, adrenal glands . Patient currently on immunotherapy. Follows with local oncologist. 4.Hypomagnesemia. We will replace and monitor. 5.Anemia of chronic disease. We will monitor H and H and transfuse as needed. 6.Chronic obstructive pulmonary disease, chronic bronchitis. Continue with nebulizer treatments, hunter pplemental oxygen p.r.n. 7.Chronic back pain, midline, without sciatica. IV fentanyl as needed. The patient is allergic to narcotics. 8.Carotid artery disease, stable. 9.Essential hypertension, stable. We will resume home medications as appropriate. 10.Deep venous thrombosis prophylaxis, on Lovenox. Plan: We will admit the patient to ICU, place as inpatient, length of stay greater than 2 midnights. TRISTON Voice ID: [id number]
--- NOTE | 2019-08-26 00:07 | CON ---
Reason For Consultation: Consultation called because of seizures. History Of Present Illness: Mr. Madrigal is a 59-year-old right-handed patient with a history of small cell lung cancer with metastasis to the brain for which he has already received radiation tr eatment. Patient's helped with information. The patient was at home on the care consultant of when he had a seizure. He lost consciousness, fell, and lost bladder and bowel control. He was s haking all over and was unresponsive. The event was perhaps a minute or around that. He regained aw areness with disorientation, confusion, and was brought to [facility]. The patient had a he ad CT scan that did not show any acute ischemic or hemorrhagic change. The findings were compared to a brain MRI done in June 2019 and that study identified a 10 mm area of hypointense T1 and hyperi ntense T2 focus in the left frontal lobe that shows enhancement on contrast and actually a new mass m easuring 17 x 11 x 11 mm in the suprasellar region. The area of metastasis in the anterior frontal l obe is one of the possible sources for the patient's current seizure. Although the description did n ot show focality beginning on one side that was not detected at the time of the event. In any event, the patient is now in ICU and has received a load of 1 g of Keppra and will receive 500 mg twice helena ly. Past Medical History: Pancreatitis, diverticulitis, chronic back pain. Allergies: CODEINE, DILAUDID. Home Medications: ProAir HFA as needed, Eliquis 5 mg twice daily, mirtazapine 7.5 mg at night as nee ded, tramadol-acetaminophen 37.5-325 every 4 hours as needed, Zofran 4 mg every 4-6 hours as needed. Family History: Noncontributory. Social History: Patient smokes at least 1 pack of cigarettes daily for about 30 plus years and drank heavily about 12 pack daily for about 30 years, but reportedly quit about 2-3 months ago. Review of Systems: Patient has had weight loss and generalized weakness, poor appetite. Otherwise, no recent fevers or chills. Physical Examination: Vital Signs: Blood pressure 129 to 144 over 74 to 96, pulse ranged from 87 to 113, temperature 97.8, oxygen saturation 98% on room air, respiratory rate 13 to 18. General: Mr. Madrigal is resting in ICU. He is in no significant distress. HEENT: He is normocephalic, atraumatic. Sclerae anicteric. Oropharynx is pink and moist. Neck: Supple. Chest: Clear. Heart: Regular. Extremities: Bruising from his Eliquis in the arms and legs, but no active bleeding. Neurological: He is alert and oriented to situation, place, and person. Follows commands appropriat carlos. Cranial nerve examination revealed no focal deficits on 2-12 motor examination. His arms bilat erally show equal strength, although diffusely weak at 4/5 proximally and distally. In the legs, sim ilarly so, diffusely weak on right and left side. Sensation is mild stocking-glove, loss of light an d temperature. Reflexes are depressed in the upper and lower extremities. Coordination intact in up per and lower extremities. Gait, he will be ambulated with physical therapy. Laboratory Studies: Complete blood count with differential shows low hemoglobin of 10.6, hematocrit 30.7, white blood cell count 6.6, platelets 265. His INR 1.52. Chemistries earlier today, magnesium was low at 1.2, now corrected to 1.7, but still low. Sodium earlier today was 120, now is 128. His BUN is 5. Liver function studies unremarkable. Urinalysis shows a low random urine potassium of 7. Random urine sodium normal at 67. Urine osmolality normal at 206. Assessment: Mr. 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 He is now on Keppra 500 mg twice daily and he has received also Decadron, which may help reduce the swelling associated with the brain mets and reduce his seizure risk. The p atient is likely to be placed on palliative care in discussion with the family and he is actually sti ll ongoing immune therapy for his cancer, but is not a surgical candidate. Plan: Once he is discharged, he should have a followup blood work for Keppra level about 10 days aft er start of the medication and may follow up in Dr. Enciso's clinic for review of the EEG, which ho pefully can be done sometime today or tomorrow. Please note, he should continue Keppra 500 mg twice daily. SHELBY/BRIAN Voice ID: [id number] Report ID: [id number]
[2019-08-26 00:29] LABS: ALT/SGPT 17 U/L (12-78); AST/SGOT 21 U/L (15-37); Albumin 3.2 g/dL (3.4-5.0); Alkaline Phosphatase 63 U/L (45-117); BUN Blood Urea Nitrogen 7 mg/dL (7-18); Bicarbonate 23 mmol/L (21-32); Bilirubin Total 0.3 mg/dL (0.2-1.0); Glucose Level 216 mg/dL (74-106); Potassium 4.5 mmol/L (3.5-5.1); Protein, Total 6.9 g/dL (6.4-8.2); Sodium Level 128 mmol/L (136-145)
[2019-08-26] MEDS: dexAMETHasone 4 MG/ML VIAL IV SCH ×3 (05:22→20:28)
[2019-08-26 06:03] LABS: ALT/SGPT 15 U/L (12-78); AST/SGOT 21 U/L (15-37); Alkaline Phosphatase 54 U/L (45-117); BUN Blood Urea Nitrogen 7 mg/dL (7-18); Bicarbonate 22 mmol/L (21-32); Bilirubin Total 0.3 mg/dL (0.2-1.0); Glucose Level 221 mg/dL (74-106); Magnesium 1.6 mg/dL (1.8-2.4); Potassium 4.4 mmol/L (3.5-5.1); Protein, Total 6.3 g/dL (6.4-8.2); Sodium Level 128 mmol/L (136-145); Thyroid Stimulating Hormone 0.362 uIU/mL (0.360-3.740); Uric Acid 4.9 mg/dL (3.5-7.2)
[2019-08-26 06:28] LABS: Absolute Lymphocytes (CBC) 0.9 K/uL (0.7-4.9); Basophils % 1.4 % (0-1.3); Hematocrit 28.8 % (39.6-49.0); MPV 9.6 fL (7.6-11.3); RBC Red Blood Cell Count 3.32 M/uL (4.33-5.43)
[2019-08-26 06:31] VITALS: BMI 18.3
[2019-08-26] MEDS ORDERED: Magnesium Sulfate 2gm IVPB 2 G/50 ML BAG IV ONE ×2 (06:44→06:48)
[2019-08-26] MEDS ORDERED: HOME MED 1 EA UNK (Mirtazapine [Mirtazapine] 7.5 MG) PO SCH (09:00)
[2019-08-26] MEDS: MIRTAZAPINE 15 MG TAB PO SCH (09:29)
[2019-08-26] MEDS: APIXABAN 5 MG TABLET PO SCH ×2 (09:29→20:28)
[2019-08-26] MEDS: levETIRAcetam 500 MG in NA CHLORIDE 0.9% 100 ML IV SCH ×2 (09:29→20:29)
[2019-08-26] MEDS: ENSURE ENLIVE 237 ML CAN PO SCH ×2 (14:00→20:28)
--- NOTE | 2019-08-26 14:52 | P.PN ---
Subjective Date of Service: 08/26/19 Primary Care Provider: Oncology-Dr. Rolon; Nephrology-Dr. Kirkpatrick Chief Complaint: abodminal pain Subjective: Improving, Doing well Physical Examination - Vital Signs Temperature: 99.2 F Blood Pressure: 144/92 Pulse: 90 Respirations: 17 Pulse Ox (%): 100 - Physical Exam General: Alert, Cooperative HEENT: Atraumatic Neck: Supple Respiratory: Clear to auscultation bilaterally, Normal air movement Cardiovascular: Normal pulses, Regular rate/rhythm Gastrointestinal: Normal bowel sounds, Soft and benign, Non-distended Neurological: Normal speech, Normal strength at 5/5 x4 extr, Normal tone - Studies Medications List Reviewed: Yes Assessment & Plan Discharge Plan: Home Plan to discharge in: Greater than 2 days Physician Review Additional Text: Impression: Acute seizure likely related to small-cell lung cancer stage IV with diffuse metastasis to the brain Severe hyponatremia with history of SIADH now likely related to volume depletion Small cell lung cancer Stage 4 with metastasis to the brain, liver and adrenal glands COPD Chronic back pain CAD Hypertension Plan: Acute seizure likely related to small-cell lung cancer stage IV with diffuse metastasis to the brain: Neurology has evaluated the patient. Neurologist suspects acute seizure likely related to diffuse metastasis. Will continue with Keppra. Will continue monitor closely. Patient will need Keppra level in 10 days. Will transition the patient to the floor. Will get physical therapy and occupational therapy to assess. Severe hyponatremia with history of SIADH now likely related to volume depletion : Nephrology consulted. Continue with IV fluid recommendations. Will monitor closely. Small cell lung cancer Stage 4 with metastasis to the brain, liver and adrenal glands: Case discussed at length with oncology. Patient previously on immunotherapy mainly for palliation. No significant change from last CT scan. Oncology had discuss the possibility of hospice. I was able to discuss in detail with the concerning his current status. will discuss with patient about advanced directives in the possibility of hospice at discharge. Will continue to readdress. COPD: Continue medication. Chronic back pain: Will provide medication. CAD: Continue with medication Hypertension: Continue medication Time Spent Managing Pts Care (In Minutes): 55
[2019-08-26] MEDS: D5W 1,000 ML IV SCH (16:00)
[2019-08-26] MEDS ORDERED: D5W 1,000 ML IV SCH (17:00)
[2019-08-26 18:33] LABS: Potassium 4.5 mmol/L (3.5-5.1); Uric Acid 4.3 mg/dL (3.5-7.2)
[2019-08-26 19:18] LABS: Urine Appearance CLOUDY; Urine Bilirubin NEGATIVE (NEG); Urine Blood 1+ (NEG); Urine Color YELLOW; Urine Glucose NEGATIVE (NEG); Urine Protein NEGATIVE (NEG); Urine Specific Gravity <=1.005 (1.005-1.030); Urine Urobilinogen 0.2 mg/dL (0.2-1.0); Urine pH 6.5 (5.0-7.0)
[2019-08-26 19:21] LABS: Urine Microscopic Reflex ORDER UMIC
[2019-08-26 19:40] LABS: Urine Bacteria >50 /HPF (NONE SEEN); Urine Culture Reflex Order REFLEXED
--- NOTE | 2019-08-27 03:11 | PN ---
Date of Progress Note: 08/26/2019 Subjective: Patient was admitted with symptomatic hyponatremia, seizure. Patient had history of CESILIA DH, used to be on tolvaptan before being off tolvaptan. Patient upon admission had symptomatic hypon atremia and because of over correction, patient was placed on D5. Patient over the last 36 hours, th e total rise of only 10 point which is appropriate. Physical Examination: Vital Signs: When I saw the patient blood pressure of 110/63, pulse of 99. Patient had good urine o utput of 1800. Chest: Clear to auscultation. Heart: S1 and S2 regular. Abdomen: Soft, nontender. Extremities: No edema. Laboratory Data: Sodium 130, potassium 4.5, bicarb 21, BUN 10, creatinine 0.9, uric acid 4.3, calciu m 8.4. Urine sodium 67, urine potassium of 7. Current Medications: 1.Mirtazapine. 2.Keppra. 3.Tylenol. 4.Dexamethasone 4 mg every 8 hours. 5.Zofran. 6.D5 at 50 per hour. 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 Corrected sodium around 129 for over 24-hour which is equal to almost less than half point and in the first 24-hour less than 12 point. I am going to go ahead and decrease th e D5 to 25 mL. However, we will repeat lab in 6 hours then we will decide. 2.Hypertension, controlled optimal. 3.Hypokalemia, resolved. 4.Hypomagnesemia, resolved. LEIF/BRIAN Voice ID: [id number] Report ID: [id number]
[2019-08-27] MEDS: dexAMETHasone 4 MG/ML VIAL IV SCH ×2 (04:38→13:27)
[2019-08-27 05:18] LABS: Absolute Lymphocytes (CBC) 0.8 K/uL (0.7-4.9); Basophils % 0.4 % (0-1.3); Hematocrit 25.5 % (39.6-49.0); MPV 8.6 fL (7.6-11.3); RBC Red Blood Cell Count 2.89 M/uL (4.33-5.43)
[2019-08-27 05:27] LABS: ALT/SGPT 14 U/L (12-78); AST/SGOT 18 U/L (15-37); Albumin 3.3 g/dL (3.4-5.0); Alkaline Phosphatase 55 U/L (45-117); BUN Blood Urea Nitrogen 11 mg/dL (7-18); Bicarbonate 26 mmol/L (21-32); Bilirubin Total 0.2 mg/dL (0.2-1.0); Glucose Level 150 mg/dL (74-106); Magnesium 1.6 mg/dL (1.8-2.4); Phosphorus 2.2 mg/dL (2.5-4.9); Potassium 4.3 mmol/L (3.5-5.1); Protein, Total 6.4 g/dL (6.4-8.2); Sodium Level 135 mmol/L (136-145)
[2019-08-27 08:28] VITALS: O2SAT 97
[2019-08-27 08:57] LABS: Blood Morphology Comment NOT SEEN (NOT SEEN); Platelet Estimate ADEQ
[2019-08-27] MEDS ORDERED: MAGNESIUM SULFATE 1 gm IVPB 1 GM/100 ML BAG IV ONE (09:00)
[2019-08-27] MEDS ORDERED: levETIRAcetam 500 MG TAB PO SCH (09:00)
[2019-08-27] MEDS: MIRTAZAPINE 15 MG TAB PO SCH (09:05)
[2019-08-27] MEDS: APIXABAN 5 MG TABLET PO SCH (09:06)
[2019-08-27] MEDS: ENSURE ENLIVE 237 ML CAN PO SCH ×2 (09:07→13:48)
--- NOTE | 2019-08-27 09:35 | P.DS ---
Admission Date: 08/25/19 Discharge Date: 08/27/19 Primary Care Provider: Oncology-Dr. Rolon; Nephrology-Dr. Kirkpatrick Disposition: HOSPICE-HOME Discharge Condition: GOOD Reason for Admission: abodminal pain Consultations: Nephrology-Dr. Kirkpatrick Neurology-Dr. Enciso Procedures: CT Head: FINDINGS: An intracranial bleed is not seen . Mild prominence of the ventricles is stable No extra-axial fluid collection is noted. No significant change in the sella/suprasellar mass. Fluid within the sinuses/ mastoids is not seen. IMPRESSION: No significant change in the appearance of sellar/ suprasellar metastasis since June 2019. CT AB: FINDINGS: No change in the hepatic lesions. The spleen, left adrenal and kidneys appear unremarkable Minimal enlargement of a 25 millimeter right adrenal mass. Gallstone Vague small low-density area within the pancreatic neck unchanged Wall of the distal stomach is thickened. The post surgical changes involve colon. There is no evidence diverticulitis. No obstruction. IMPRESSION: No significant change in the hepatic lesions Minimal enlargement of a right adrenal mass consistent with metastasis No change in a vague small low-density area within the pancreatic neck Wall of the stomach is thickened which could indicate inflammation Medical Problem List: Acute seizure likely related to small-cell lung cancer stage IV with diffuse metastasis to the brain Severe hyponatremia with history of SIADH now likely related to volume depletion Small cell lung cancer Stage 4 with metastasis to the brain, liver and adrenal glands COPD Chronic back pain CAD History of pulmonary embolism on chronic anti coagulation therapy Brief History of Present Illness: 59-year-old male with small-cell lung cancer with metastasis to the brain/liver/adrenal gland, COPD, hypertension and anemia. Patient presented with seizure activity. Patient evaluated by EMS. Episode did not last long. Patient also reported some fatigue. Patient found to have sodium of 120. Was admitted for further evaluation and treatment. Anti seizure medication initiated. Patient sent to ICU for close monitoring and to treat hyponatremia. Hospital Course: Patient presented with acute seizure. Patient was started on anti seizure medication-Keppra. Patient seen and evaluated by neurology. CT scan showed no acute findings. It did show no significant change in the appearance of sellar/ suprasellar metastasis since June 2019. Case discussed at length with Neurology. Neurology recommends to continue with Keppra 500 mg 1 pill twice daily. May recheck Keppra level at 10 days. Patient may follow up with neurology in 2-4 weeks to monitors progress. Patient also presented with severe hyponatremia. Patient with history of SIADH. This appeared to be more volume depletion. Patient required IV fluids. This was adjusted by Nephrology. Sodium significantly improved. Patient with underlying small-cell lung cancer with metastasis to the brain, liver, and adrenal gland. Patient is seen by oncology. Patient has been getting immunotherapy mainly for palliation. There is been no significant change in recent CT scan including CT of the head and CT of the abdomen. Care discussed with oncology. Oncology had discussed the possibility of hospice with patient. A long discussion with the patient concerning plan of care and his current status was addressed in detail. Patient understands that his cancer is terminal. He understands that immunotherapy has not significantly made a change in his status. Patient is tired of having to return to the hospital. After further discussion advanced directives address in detail. Patient's wishes to be DNR at this time. Furthermore patient desires hospice. His desires to go home with hospice and to be comfortable. This was discussed with Oncology who agrees with plan of care. Will plan for discharge today with hospice. Comfort measures to be continued. Patient may continue his other home medications. Further adjustment in his medication can be done by hospice. Oncology plans to follow patient in hospice. [id number] DNR will be arranged. Patient with COPD. This has remained stable. Patient may continue with COPD medication-Symbicort 2 puffs twice daily and Pro air 2 puffs 3 times a day as needed for shortness of breath. Patient may require oxygen in the future to maintain sats above 93%. This can be arranged by hospice. Patient room-air saturations at this time within normal range.. Patient with chronic back pain. Patient will continue with pain medication tramadol 3 times a day as needed for pain. Further medication for pain can be provided by hospice. Patient with history of CAD and recent pulmonary embolism on chronic anti coagulation therapy. At discharge patient will continue with Eliquis 5 mg 1 pill twice daily. Vital Signs/Physical Exam: Temp Pulse Resp BP Pulse Ox 99.1 F 109 H 18 117/77 100 08/27/19 05:00 08/27/19 05:00 08/27/19 05:00 08/27/19 05:00 08/27/19 05:00 General: Alert, In no apparent distress, Cooperative HEENT: Atraumatic Neck: Supple Respiratory: Clear to auscultation bilaterally, Normal air movement Cardiovascular: Normal pulses, Regular rate/rhythm Gastrointestinal: Normal bowel sounds, No masses, No rebound, No guarding Neurological: Normal speech, Normal strength at 5/5 x4 extr, Normal tone, Normal affect, Other (Muscle wasting to the upper and lower extremities) Laboratory Data at Discharge: WBC 11.9 K/uL (4.3-10.9) H D 08/27/19 04:55 Hgb 9.0 g/dL (13.6-17.9) L 08/27/19 04:55 Hct 25.5 % (39.6-49.0) L 08/27/19 04:55 Plt Count 224 K/uL (152-406) 08/27/19 04:55 Sodium 135 mmol/L (136-145) L 08/27/19 04:55 Potassium 4.3 mmol/L (3.5-5.1) 08/27/19 04:55 BUN 11 mg/dL (7-18) 08/27/19 04:55 Creatinine 0.72 mg/dL (0.55-1.3) 08/27/19 04:55 Glucose 150 mg/dL (74-106) H 08/27/19 04:55 Uric Acid 4.3 mg/dL (3.5-7.2) 08/26/19 17:55 Phosphorus 2.2 mg/dL (2.5-4.9) L 08/27/19 04:55 Magnesium 1.6 mg/dL (1.8-2.4) L 08/27/19 04:55 Total Bilirubin 0.2 mg/dL (0.2-1.0) 08/27/19 04:55 AST 18 U/L (15-37) 08/27/19 04:55 ALT 14 U/L (12-78) 08/27/19 04:55 Alkaline Phosphatase 55 U/L (45-117) 08/27/19 04:55 Home Medications: Albuterol Sulfate [Proair Hfa] 2 puff IH DAILY PRN 90 Days #3 hfa.aer.ad Budesonide/Formoterol Fumarate [Symbicort 160-4.5 Mcg Inhaler] 2 puff IH BID 90 Days #3 hfa.aer.ad 06/02/19 Ondansetron HCl [Zofran] 4 mg PO PRN PRN 07/16/19 Apixaban [Eliquis] 5 mg PO BID 08/25/19 Mirtazapine 7.5 mg PO DAILY 08/25/19 Tramadol HCl/Acetaminophen [Tramadol-Acetaminophn 37.5-325] 1 tab PO PRN Ensure Enlive 237 ml PO TID #90 can 08/27/19 levETIRAcetam [Keppra*] 500 mg PO BID #60 tab 08/27/19 New Medications: Ensure Enlive 237 ml PO TID #90 can levETIRAcetam [Keppra*] 500 mg PO BID #60 tab Patient Discharge Instructions: 1. Patient will go home with hospice in place. 2. Patient presented with acute seizure. Patient was started on anti seizure medication-Keppra. Patient seen and evaluated by neurology. CT scan showed no acute findings. It did show no significant change in the appearance of sellar/suprasellar metastasis since June 2019. Case discussed at length with Neurology. Neurology recommends to continue with Keppra 500 mg 1 pill twice daily. May recheck Keppra level at 10 days. Patient may follow up with neurology in 2-4 weeks to monitors progress. 3. Patient also presented with severe hyponatremia. Patient with history of SIADH. This appeared to be more volume depletion. Patient required IV fluids. This was adjusted by Nephrology. Sodium significantly improved. 4. Patient with underlying small- cell lung cancer with metastasis to the brain, liver, and adrenal gland. Patient is seen by oncology. Patient has been getting immunotherapy mainly for palliation. There is been no significant change in recent CT scan including CT of the head and CT of the abdomen. Care discussed with oncology. Oncology had discussed the possibility of hospice with patient. A long discussion with the patient concerning plan of care and his current status was addressed in detail. Patient understands that his cancer is terminal. He understands that immunotherapy has not significantly made a change in his status. Patient is tired of having to return to the hospital. After further discussion advanced directives address in detail. Patient's wishes to be DNR at this time. Furthermore patient desires hospice. His desires to go home with hospice and to be comfortable. This was discussed with Oncology who agrees with plan of care. Will plan for discharge today with hospice. Comfort measures to be continued. Patient may continue his other home medications. Further adjustment in his medication can be done by hospice. Oncology plans to follow patient in hospice. [id number] DNR will be arranged. 5. Patient with COPD. This has remained stable. Patient may continue with COPD medication- Symbicort 2 puffs twice daily and Pro air 2 puffs 3 times a day as needed for shortness of breath. Patient may require oxygen in the future to maintain sats above 93%. This can be arranged by hospice. Patient room-air saturations at this time within normal range.. 6. Patient with chronic back pain. Patient will continue with pain medication tramadol 3 times a day as needed for pain. Further medication for pain can be provided by hospice. 7. Patient with history of CAD and recent pulmonary embolism on chronic anti coagulation therapy. At discharge patient will continue with Eliquis 5 mg 1 pill twice daily. Diet: Regular Activity: Fall precautions Time spent managing pt's care (in minutes): 55
[2019-08-27 09:52] VITALS: TEMP 98.9
[2019-08-27 17:00] VITALS: BP 115/71
--- NOTE | 2019-08-28 03:57 | PN ---
Date of Progress Note: 08/27/2019 History: Patient was admitted with symptomatic hyponatremia and seizure. Patient was corrected appr opriately. Patient off tolvaptan. Physical Examination: Vital Signs: Blood pressure 115/71, pulse of 73. Chest: Clear to auscultation. Heart: S1, S2 regular. Abdomen: Soft, nontender. Extremities: No edema. Laboratory Data: H and H 06/03.5. Sodium 135, potassium 4.3, bicarb 26, BUN 11, creatinine 0.7, calc ium 8.7, magnesium 1.6, phos 2.2. Current Medications: 1.No IV fluid. 2.Eliquis. 3.Mirtazapine. 4.Zofran. Assessment And Plan: 1.Hyponatremia, symptomatic with neurological symptoms corrected appropriately. Discontinue D5 and we will monitor. 2.Electrolyte imbalance. We will supplement the patient. Apparently family decided about hospice c are. We will sign off. Please call us as needed if condition changes. HEATHER Voice ID: [id number] Report ID: [id number]
== END 2019-08-27 16:21 | disposition hospice, home (50) | DRG 641 ==
LOC: ER 06:12 → ERHOLD 08:58 → 2ND 10:25 → 3RD-ICU 11:17 → 2ND 08-26 16:05
PROVIDERS: ADMIT Family Medicine; ATTEND Family Medicine
DX: E87.1 Hypo-osmolality and hyponatremia (principal); C34.90 Malignant neoplasm of unspecified part of unspecified bronchus or lung; C79.31 Secondary malignant neoplasm of brain; C78.7 Secondary malignant neoplasm of liver and intrahepatic bile duct; C79.70 Secondary malignant neoplasm of unspecified adrenal gland; R64 Cachexia; Z68.1 Body mass index [BMI] 19.9 or less, adult; N39.0 Urinary tract infection, site not specified; Z16.12 Extended spectrum beta lactamase (ESBL) resistance; G40.909 Epilepsy, unspecified, not intractable, without status epilepticus; E86.9 Volume depletion, unspecified; F17.210 Nicotine dependence, cigarettes, uncomplicated; D64.9 Anemia, unspecified; I10 Essential (primary) hypertension; D63.8 Anemia in other chronic diseases classified elsewhere; J42 Unspecified chronic bronchitis; E83.42 Hypomagnesemia; M54.9 Dorsalgia, unspecified; B96.22 Other specified Shiga toxin-producing Escherichia coli [E. coli] [STEC] as the cause of diseases classified elsewhere
CPT/HCPCS: 36415; 70450; 74177; 80048; 80053; 80069; 81003; 81015; 83735; 83930; 83935; 84132; 84300; 84443; 84550; 85025; 87077; 87086; 87088; 87186; 94760; 96361; 96365; 96375; 97112; 97161; 99285; J1650; J1953; J2405; J3010; J3475; J7030; Q9967